=== PATIENT | female | born 2000 | race Caucasian/White ===

== ENCOUNTER 2023-07-31 09:13 | Emergency (ER) | payer OTHER ==
--- OUTSIDE RECORDS SUMMARY | 2023-07-31 09:18 | XMS REPORT | Continuity of Care Document ---
Author Name Unknown Address [address] [facility] [address] [place] [address] [facility] thconnect Address [address] [facility]. [address] [place] [address] Care Team Providers Care Tinsmith Apprentice Name Role Phone Mahnaz Reddy Primary Care Physicia n MAHNAZ DUMONT Attending Clinician Unavail able Mahnaz Reddy Attending Clinician + Doctor Unassigned, [place] Attending Clinician U BRIDGET Batista Attending Clinician Unavailable Placido Alston MD Attending Clinician + [phone] Nixon Castano DO Attending Clinician [phone], [facility] Nst Ultrasound Attending Clinician Unavailable AUGUSTINA MEJIAS Attending Clinician Unavailable Augustina Mejias MD Attending Clinician [phone] OSWALD PURCELL Attending Clinician Unavailable Oswald Purcell MD Attending Clinician [phone] ABBY RUSSELL Attending Clinician UnavailAbby Rey MD Attending Clinician [phone] Richelle CERNA, Chelsey Jamison Attending Clinician Yarely vaMARCIN Recinos Attending Clinician Unavailable MARCIN FULTON Attending Clinician Unavailable Ultrasound, [facility] Attending Clinician Unavaila Marcin Garcia MD Attending Clinician GUALBERTO BAKER Attending Clinician Unav Gualberto Trejo MD Attending Clinician + JESSICA DEMPSEY Attending Clinician Unav ailable Jessica Dempsey MD Attending Clinician + Placido Alston MD Admitting Clinician [phone] AUGUSTINA MEJIAS Admitting Clinician Unavailable Augustina Mejias MD Admitting Clinician [phone] OSWALD PURCELL Admitting Clinician Unavailable Oswald Purcell MD Admitting Clinician [phone] ABBY RUSSELL Admitting Clinician UnavailAbby Rey MD Admitting Clinician [phone] Payers Payer Name Policy Type Policy Number Effective Date Expirati on Date Source [facility] [id number] 2022 00:00:00 Problems Condition Name Condition Details Condition Category Status Onset Date Resolution Date Last Treatment Date Treating Clinician Comments Source Other general counseling and advice for contracept joey management Other general counseling and advice for contracept joey management Disease Active 2022-02 006 00:00: 00 [facility] care and examinatio n of lactating mother care and examinatio n of lactating mother Disease Active 914 00:00: 00 [facility] Anemia, Anemia, Disease Active 10-04 00:00: 00 [facility] (spontaneo us vaginal delivery) (spontaneo us vaginal delivery) Disease Active 8 00:00: 00 [facility] Single live Single live Disease Active 8 00:00: 00 [facility] 37 weeks gestation of 37 weeks gestation of Disease Active 8-24 00:00: 00 [facility] Decreased movement Decreased movement Disease Active 8-24 00:00: 00 [facility] 36 weeks gestation of 36 weeks gestation of Disease Active 8-18 00:00: 00 [facility] UTI (urinary tract infection) UTI (urinary tract infection) Disease Active 8-18 00:00: 00 [facility] Uterine contractio ns Uterine contractio ns Disease Active 818 00:00: 00 [facility] IUGR (intrauter ine growth restrictio n) affecting care of mother IUGR (intrauter ine growth restrictio n) affecting care of mother Disease Active 08-29 00:00: 00 Overview: Formattin g of this note might be different from the original. 2x weekly nst . Discontin ue surveilla nce for FGR as FGR is now resolved 09/19/22, see recent usg report [facility] Low-lying placenta Low-lying placenta Disease Active 6- 00:00: 00 [facility] Atypical squamous cells of undetermin ed significan ce (ASCUS) on Papanicola ou smear of cervix Atypical squamous cells of undetermin ed significan ce (ASCUS) on Papanicola ou smear of cervix Disease Active 4-03 00:00: 00 Overview: Formattin g of this note might be different from the original. Repeat 1 year 04/2023 [facility] Supervisio n of high-risk Supervisio n of high-risk Disease Active 04-30 00:00: 00 [facility] History of placenta previa History of placenta previa Disease Active 04-30 00:00: 00 [facility] history of Anxiety and depression history of Anxiety and depression Disease Active 04-30 00:00: 00 Overview: Formattin g of this note might be different from the original. Last on meds in 2016 Not on meds [facility] Marijuana use Marijuana use Disease Active 04-30 00:00: 00 Overview: Formattin g of this note might be different from the original. Reports quit 1.5 months ago [facility] Multiparit y Multiparit y Disease Active 04-30 00:00: 00 [facility] Allergies, Adverse Reactions, Alerts Allergy Name Allergy Type Status Severity Reaction(s) Onset Date Inactive Date Treating Clinician Comments Source TRAMADOL DRUG INGREDI Active Med N/V 04-30 00:00: 00 [facility] Tramadol Drug Allergy Active Nausea and/or Vomiting 04-30 00:00: 00 [facility] penicill in G DA Active U 06-21 00:00: 00 [facility] OXYTOCIN DRUG INGREDI Active Palpitations 02-09 00:00: 00 [facility] Oxytocin Drug Allergy Active Palpitations 02-09 00:00: 00 [facility] NO KNOWN ALLERGIE S Drug Class Active [facility] Social History Social Habit Start Date Stop Date Quantity Comments Source ASSERTION 2022-01-28 00:00:00 [facility] Gender identity [facility] intake 2022-11-14 00:00:00 2022-11-14 00:00:00 Lifetime non-drinker (finding) [facility] Education 2022-10-02 00:00:00 2022-10-02 00:00:00 21 [facility] Exposure to SARS-CoV-2 (event) 2022-06-15 00:00:00 2022-06-25 11:10:00 Not sure [facility] Tobacco use and exposure 2022-04-30 00:00:00 2022-04-30 00:00:00 Smokeless tobacco non-user [facility] History of Social function 2022-04-30 00:00:00 2022-04-30 00:00:00 [facility] Sex Assigned At 2000 00:00:00 2000 00:00:00 [facility] Smoking Status Start Date Stop Date Source Tobacco smoking consumption unknown [facility] Never smoked tobacco [facility] Medications Ordered Medication Name Filled Medication Name Start Date Stop Date Current Medication? Ordering Clinician Indication Dosage Frequency Signature (SIG) Comments Components Source etonogestre L (NEXPLANON) implant 68 mg 2022-02 16:45: 00 11-14 15:49 :00 No [id number] 68mg Ximena jo [facility] vitamin w/FA tablet 10-04 00:00: 00 Yes [id number] 1{tbl} Take 1 tablet by mouth in the morning. [facility] ferrous sulfate 325 mg (65 mg iron) tablet 10-04 00:00: 00 Yes [id number] 325mg Take 1 tablet by mouth in the morning and 1 tablet in the evening. [facility] docusate 100 mg capsule 10-04 00:00: 00 11-14 00:00 :00 No [id number] 200mg Take 2 capsules by mouth once daily as needed for Constipati on. [facility] ibuprofen 600 mg tablet 10-04 00:00: 00 11-14 00:00 :00 No [id number] 600mg Take 1 tablet by mouth every 6 (six) hours as needed (Pain). Take with food or milk. [facility] rho(D) immune globulin (RHOGAM) syringe 300 mcg 10-03 04:57: 19 Yes 300ug 300 mcg, Intramuscu lar, ONCE, For 1 dose, Conditiona l, Routine [facility] HYDROcodone -acetaminop hen (NORCO 5) 5-325 mg tablet 1 tablet 10-03 04:57: 11 Yes 1{tbl} 1 tablet, Oral, Q6HPRN, Starting on Latisha 10/02/22 at 2357, Until Discontinu ed, Routine, Pain (scale 7-10) [facility] ibuprofen (IBU) tablet 600 mg 10-03 04:57: 11 Yes 600mg 600 mg, Oral, Q6HPRN, Starting on Thu10/02/22 at 2357, Until Discontinu ed, Routine, Pain (scale 4-6) [facility] acetaminoph en (TYLENOL) tablet 650 mg 10-03 04:57: 11 Yes 650mg 650 mg, Oral, Q6HPRN, Starting on Thu10/02/22 at 2356, Until Discontinu ed, Routine, Pain (scale 1-3) [facility] diphenhydrA MINE (BENADRYL) tablet 25 mg 10-03 04:57: 11 Yes 25mg 25 mg, Oral, Q6HPRN, Starting on Thu10/02/22 at 2356, Until Discontinu ed, Routine, Sleep, Itching [facility] ondansetron (ZOFRAN (PF)) injection 4 mg 10-03 04:57: 11 Yes 4mg 4 mg, Slow IV Push, Q8HPRN, Starting on Thu10/02/22 at 2356, Until Discontinu ed, Routine, Nausea and Vomiting (N/V) [facility] simethicone (GAS RELIEF (SIMETHICON E)) chewable tablet 160 mg 10-03 04:57: 11 Yes 160mg 160 mg, Oral, PC+HSPRN, Starting on Thu10/02/22 at 7, Until Discontinu ed, Routine, Gas [facility] docusate (COLACE) capsule 200 mg 10-03 04:57: 11 Yes 200mg 200 mg, Oral, QDAILYPRN, Starting on Thu10/02/22 at 2357, Until Discontinu ed, Routine, Constipati on [facility] magnesium hydroxide (MILK OF MAGNESIA) 400 mg/5 mL suspension 30 mL 10-03 04:57: 11 Yes 30mL 30 mL, Oral, QDAILYPRN, Starting on Thu10/02/22 at 2357, Until Discontinu ed, Routine, Constipati on [facility] benzocaine- menthol (DERMOPLAST ) 20-0.5 % topical spray 10-03 04:57: 11 Yes Topical, PRN, Starting on Thu10/02/22 at 2357, Until Discontinu ed, Routine, Perineum discomfort [facility] ropivacaine 0.2 % (NAROPIN (PF)) epidural infusion 10-03 01:15: 00 Yes Epidural, CONTINUOUS PRN, Starting on Latisha 10/02/22 at 2014, Until Discontinu ed, Routine, Intra-op [facility] lidocaine-e pinephrine (XYLOCAINE W/EPINEPHRI NE) 1.5 %-1:200,000 injection 10-03 01:15: 00 Yes Intraderma l, ONCE INTRA PROCEDURE, Starting on Latisha 10/02/22 at 2014, Until Discontinu ed, Routine, Intra-op [facility] oxytocin (PITOCIN) 30 units in NS 500 mL IV infusion 10-02 19:05: 02 10-03 04:57 :17 No 2mU/min at 2-40 mL/hr, IV Infusion, TITRATE, Starting on Latisha 10/02/22 at 1405, Until Latisha 10/02/22 at 2357, WILLIAM [facility] D5W-LR IV infusion 1,000 mL 10-02 17:11: 01 10-03 04:57 :17 No 1000mL at 1-125 mL/hr, IV Infusion, TITRATE, Starting on Latisha 10/02/22 at 1211, Until Latisha 10/02/22 at 2357, Routine [facility] metroNIDAZO LE (FLAGYL) 500 mg tablet 10-02 00:00: 00 Yes [id number] 500mg Take 1 tablet by mouth every 12 (twelve) hours. [facility] lactated ringers IV infusion 500 mL 09-27 18:30: 00 09-27 18:03 :30 No 500mL at 999 mL/hr, 500 mL, Intravenou s, ONCE, 1 dose, On 09/27/22 at 1330, Routine [facility] fluconazole (DIFLUCAN) tablet 150 mg 09-26 03:45: 00 09-26 03:08 :00 No 150mg 150 mg, Oral, ONCE, 1 dose, On Latisha 09/25/22 at 2245, WILLIAM
Re ason for Anti-Infec tive: Documented Infection< br>Documen king Infection Site: Pelvic
Duration of Therapy: Other (see Comments) [facility] lactated ringers IV infusion 500 mL 09-26 02:00: 00 09-26 03:09 :00 No 500mL at 999 mL/hr, 500 mL, Intravenou s, ONCE, 1 dose, On Latisha 09/25/22 at 2100, Routine [facility] ferrous sulfate 325 mg (65 mg iron) tablet 09-25 00:00: 00 10-04 00:00 :00 No [id number] 325mg Take 1 tablet by mouth in the morning and 1 tablet in the evening. [facility] ascorbic acid, vitamin C, 500 mg tablet 09-25 00:00: 00 10-04 00:00 :00 No [id number] 500mg Take 1 tablet by mouth in the morning and 1 tablet at noon and 1 tablet in the evening. [facility] Nitrofurant oin&Nit. Macrocryst 100 mg capsule 09-25 00:00: 00 10-04 00:00 :00 No [id number] 100mg Take 1 capsule by mouth in the morning and 1 capsule in the evening. Do all this for 7 days. [facility] multivitami n ( VITAMIN) tablet 04-30 00:00: 00 Yes [id number] 1{tbl} Take 1 tablet by mouth in the morning. [facility] multivitami n ( VITAMIN) tablet 04-30 00:00: 00 10-04 00:00 :00 No [id number] 1{tbl} Take 1 tablet by mouth in the morning. [facility] Immunizations Ordered Immunization Name Filled Immunization Name Date Status Comments Source TDAP 2022-07-31 00:00:00 Completed [facility] TDAP 2022-07-31 00:00:00 Completed [facility] TDAP 2022-07-31 00:00:00 Completed [facility] TDAP 2022-07-31 00:00:00 Completed [facility] TDAP 2022-07-31 00:00:00 Completed [facility] TDAP 2022-07-31 00:00:00 Completed [facility] TDAP 2022-07-31 00:00:00 Completed [facility] TDAP 2022-07-31 00:00:00 Completed [facility] TDAP 2022-07-31 00:00:00 Completed [facility] TDAP 2022-07-31 00:00:00 Completed [facility] TDAP 2022-07-31 00:00:00 Completed [facility] TDAP 2022-07-31 00:00:00 Completed [facility] TDAP 2022-07-31 00:00:00 Completed [facility] TDAP 2022-07-31 00:00:00 Completed [facility] TDAP 2022-07-31 00:00:00 Completed [facility] TDAP 2022-07-31 00:00:00 Completed [facility] TDAP 2022-07-31 00:00:00 Completed [facility] TDAP 2022-07-31 00:00:00 Completed [facility] TDAP 2022-07-31 00:00:00 Completed [facility] TDAP 2022-07-31 00:00:00 Completed [facility] TDAP 2022-07-31 00:00:00 Completed [facility] TDAP 2022-07-31 00:00:00 Completed [facility] TDAP 2022-07-31 00:00:00 Completed [facility] TDAP 2022-07-31 00:00:00 Completed [facility] TDAP 2022-07-31 00:00:00 Completed [facility] TDAP 2022-07-31 00:00:00 Completed [facility] TDAP 2022-07-31 00:00:00 Completed [facility] TDAP 2022-07-31 00:00:00 Completed [facility] TDAP 2022-07-31 00:00:00 Completed [facility] TDAP 2022-07-31 00:00:00 Completed [facility] TDAP 2022-07-31 00:00:00 Completed [facility] TDAP 2022-07-31 00:00:00 Completed [facility] TDAP 2022-07-31 00:00:00 Completed [facility] TDAP 2022-07-31 00:00:00 Completed [facility] TDAP 2022-07-31 00:00:00 Completed [facility] TDAP 2022-07-31 00:00:00 Completed [facility] TDAP Unknown Completed [facility] TDAP Unknown Completed [facility] TDAP Unknown Completed [facility] TDAP Unknown Completed [facility] Vital Signs Vital Name Observation Time Observation Value Comments S ource Systolic blood pressure 2022-11-14 15:22:00 117 mm[Hg] [facility] Diastolic blood pressure 2022-11-14 15:22:00 70 mm[Hg] [facility] Heart rate 2022-11-14 15:22:00 90 /min [facility] Body temperature 2022-11-14 15:22:00 36 Sarita [facility] Respiratory rate 2022-11-14 15:22:00 18 /min [facility] Body height 2022-11-14 15:22:00 165.1 cm [facility] Body weight 2022-11-14 15:22:00 70.58 kg [facility] BMI 2022-11-14 15:22:00 25.89 kg/m2 [facility] Systolic blood pressure 2022-10-23 20:53:00 94 mm[Hg] [facility] Diastolic blood pressure 2022-10-23 20:53:00 76 mm[Hg] [facility] Heart rate 2022-10-23 20:53:00 86 /min [facility] Body temperature 2022-10-23 20:53:00 36.78 Sarita [facility] Respiratory rate 2022-10-23 20:53:00 18 /min [facility] Body weight 2022-10-23 20:53:00 69.899 kg [facility] BMI 2022-10-23 20:53:00 25.64 kg/m2 [facility] Systolic blood pressure 2022-10-04 13:13:00 120 mm[Hg] [facility] Diastolic blood pressure 2022-10-04 13:13:00 76 mm[Hg] [facility] Heart rate 2022-10-04 13:13:00 83 /min [facility] Body temperature 2022-10-04 13:13:00 36.5 Sarita [facility] Respiratory rate 2022-10-04 13:13:00 18 /min [facility] Oxygen saturation in Arterial blood by Pulse oximetry 2022-10-04 13:13:00 97 /min [facility] Body height 2022-10-02 16:15:00 165.1 cm [facility] Body weight 2022-10-02 16:15:00 74.39 kg [facility] BMI 2022-10-02 16:15:00 27.29 kg/m2 [facility] Systolic blood pressure 2022-10-02 12:58:00 111 mm[Hg] [facility] Diastolic blood pressure 2022-10-02 12:58:00 76 mm[Hg] [facility] Heart rate 2022-10-02 12:58:00 97 /min [facility] Body temperature 2022-10-02 12:58:00 36.61 Sarita [facility] Respiratory rate 2022-10-02 12:58:00 17 /min [facility] Body height 2022-10-02 12:58:00 165.1 cm [facility] Body weight 2022-10-02 12:58:00 74.571 kg [facility] BMI 2022-10-02 12:58:00 27.36 kg/m2 [facility] Systolic blood pressure 2022-10-02 03:30:00 115 mm[Hg] [facility] Diastolic blood pressure 2022-10-02 03:30:00 70 mm[Hg] [facility] Heart rate 2022-10-02 03:30:00 93 /min [facility] Oxygen saturation in Arterial blood by Pulse oximetry 2022-10-02 03:30:00 99 /min [facility] Body temperature 2022-10-02 01:00:00 36.78 Sarita [facility] Body weight 2022-10-02 01:00:00 75.206 kg [facility] BMI 2022-10-02 01:00:00 27.59 kg/m2 [facility] Systolic blood pressure 2022-09-27 19:40:00 114 mm[Hg] [facility] Diastolic blood pressure 2022-09-27 19:40:00 69 mm[Hg] [facility] Heart rate 2022-09-27 19:40:00 94 /min [facility] Oxygen saturation in Arterial blood by Pulse oximetry 2022-09-27 19:40:00 99 /min [facility] Systolic blood pressure 2022-09-26 14:40:00 101 mm[Hg] [facility] Diastolic blood pressure 2022-09-26 14:40:00 65 mm[Hg] [facility] Heart rate 2022-09-26 14:40:00 93 /min [facility] Body temperature 2022-09-26 14:40:00 36.5 Sarita [facility] Respiratory rate 2022-09-26 14:40:00 20 /min [facility] Body height 2022-09-26 14:40:00 165.1 cm [facility] Body weight 2022-09-26 14:40:00 75.206 kg [facility] BMI 2022-09-26 14:40:00 27.59 kg/m2 [facility] Heart rate 2022-09-26 02:57:00 87 /min [facility] Oxygen saturation in Arterial blood by Pulse oximetry 2022-09-26 02:57:00 99 /min [facility] Systolic blood pressure 2022-09-26 02:30:00 115 mm[Hg] [facility] Diastolic blood pressure 2022-09-26 02:30:00 62 mm[Hg] [facility] Respiratory rate 2022-09-26 02:00:00 16 /min [facility] Body temperature 2022-09-25 23:59:00 36.67 Sarita [facility] Systolic blood pressure 2022-09-23 15:29:00 113 mm[Hg] [facility] Diastolic blood pressure 2022-09-23 15:29:00 68 mm[Hg] [facility] Heart rate 2022-09-23 15:29:00 93 /min [facility] Body temperature 2022-09-23 15:29:00 36.78 Sarita [facility] Respiratory rate 2022-09-23 15:29:00 16 /min [facility] Body height 2022-09-23 15:29:00 165.1 cm [facility] Body weight 2022-09-23 15:29:00 74.798 kg [facility] BMI 2022-09-23 15:29:00 27.44 kg/m2 [facility] Systolic blood pressure 2022-09-19 13:33:00 111 mm[Hg] [facility] Diastolic blood pressure 2022-09-19 13:33:00 68 mm[Hg] [facility] Heart rate 2022-09-19 13:33:00 101 /min [facility] Body temperature 2022-09-19 13:33:00 35.56 Sarita [facility] Respiratory rate 2022-09-19 13:33:00 18 /min [facility] Body height 2022-09-19 13:33:00 165.1 cm [facility] Body weight 2022-09-19 13:33:00 74.435 kg [facility] BMI 2022-09-19 13:33:00 27.31 kg/m2 [facility] Systolic blood pressure 2022-09-12 18:53:00 109 mm[Hg] [facility] Diastolic blood pressure 2022-09-12 18:53:00 67 mm[Hg] [facility] Heart rate 2022-09-12 18:53:00 96 /min [facility] Body temperature 2022-09-12 18:53:00 36.28 Sarita [facility] Respiratory rate 2022-09-12 18:53:00 18 /min [facility] Body height 2022-09-12 18:53:00 165.1 cm [facility] Body weight 2022-09-12 18:53:00 73.392 kg [facility] BMI 2022-09-12 18:53:00 26.92 kg/m2 [facility] Systolic blood pressure 2022-09-09 14:13:00 101 mm[Hg] [facility] Diastolic blood pressure 2022-09-09 14:13:00 64 mm[Hg] [facility] Heart rate 2022-09-09 14:13:00 89 /min [facility] Body temperature 2022-09-09 14:13:00 36.17 Sarita [facility] Respiratory rate 2022-09-09 14:13:00 18 /min [facility] Body height 2022-09-09 14:13:00 165.1 cm [facility] Body weight 2022-09-09 14:13:00 73.12 kg [facility] BMI 2022-09-09 14:13:00 26.83 kg/m2 [facility] Systolic blood pressure 2022-09-05 18:52:00 111 mm[Hg] [facility] Diastolic blood pressure 2022-09-05 18:52:00 72 mm[Hg] [facility] Heart rate 2022-09-05 18:52:00 95 /min [facility] Body temperature 2022-09-05 18:52:00 36.17 Sarita [facility] Respiratory rate 2022-09-05 18:52:00 18 /min [facility] Body height 2022-09-05 18:52:00 165.1 cm [facility] Body weight 2022-09-05 18:52:00 73.437 kg [facility] BMI 2022-09-05 18:52:00 26.94 kg/m2 [facility] Systolic blood pressure 2022-09-02 13:59:00 110 mm[Hg] [facility] Diastolic blood pressure 2022-09-02 13:59:00 65 mm[Hg] [place] [facility] Heart rate 2022-09-02 13:59:00 93 /min [facility] Body temperature 2022-09-02 13:59:00 35.72 Sarita [facility] Respiratory rate 2022-09-02 13:59:00 18 /min [facility] Body height 2022-09-02 13:59:00 165.1 cm [facility] Body weight 2022-09-02 13:59:00 72.303 kg [facility] BMI 2022-09-02 13:59:00 26.53 kg/m2 [facility] Systolic blood pressure 2022-08-29 17:58:00 106 mm[Hg] [place] [facility] Diastolic blood pressure 2022-08-29 17:58:00 64 mm[Hg] [facility] Heart rate 2022-08-29 17:58:00 95 /min [facility] Body temperature 2022-08-29 17:58:00 36.61 Sarita [facility] Respiratory rate 2022-08-29 17:58:00 18 /min [facility] Body height 2022-08-29 17:58:00 165.1 cm [facility] Body weight 2022-08-29 17:58:00 71.725 kg [facility] BMI 2022-08-29 17:58:00 26.31 kg/m2 [facility] Systolic blood pressure 2022-08-14 15:55:00 99 mm[Hg] [place] [facility] Diastolic blood pressure 2022-08-14 15:55:00 65 mm[Hg] [facility] Heart rate 2022-08-14 15:55:00 91 /min [facility] Body temperature 2022-08-14 15:55:00 36.11 Sarita [facility] Respiratory rate 2022-08-14 15:55:00 18 /min [facility] Body height 2022-08-14 15:55:00 165.1 cm [facility] Body weight 2022-08-14 15:55:00 69.264 kg [facility] BMI 2022-08-14 15:55:00 25.41 kg/m2 [facility] Systolic blood pressure 2022-07-31 14:40:00 110 mm[Hg] [facility] Diastolic blood pressure 2022-07-31 14:40:00 66 mm[Hg] [facility] Heart rate 2022-07-31 14:40:00 100 /min [facility] Body temperature 2022-07-31 14:40:00 36.22 Sarita [facility] Respiratory rate 2022-07-31 14:40:00 18 /min [facility] Body height 2022-07-31 14:40:00 165.1 cm [facility] Body weight 2022-07-31 14:40:00 67.949 kg [facility] BMI 2022-07-31 14:40:00 24.93 kg/m2 [facility] Systolic blood pressure 2022-07-16 14:08:00 106 mm[Hg] [facility] Diastolic blood pressure 2022-07-16 14:08:00 66 mm[Hg] [facility] Heart rate 2022-07-16 14:08:00 94 /min [facility] Body temperature 2022-07-16 14:08:00 35.56 Sarita [facility] Respiratory rate 2022-07-16 14:08:00 18 /min [facility] Body height 2022-07-16 14:08:00 165.1 cm [facility] Body weight 2022-07-16 14:08:00 64.728 kg [facility] BMI 2022-07-16 14:08:00 23.75 kg/m2 [facility] Systolic blood pressure 2022-06-25 16:11:00 98 mm[Hg] [facility] Diastolic blood pressure 2022-06-25 16:11:00 59 mm[Hg] [facility] Heart rate 2022-06-25 16:11:00 89 /min [facility] Body temperature 2022-06-25 16:11:00 36.06 Sarita [facility] Respiratory rate 2022-06-25 16:11:00 18 /min [facility] Body height 2022-06-25 16:11:00 165.1 cm [facility] Body weight 2022-06-25 16:11:00 61.735 kg [facility] BMI 2022-06-25 16:11:00 22.65 kg/m2 [facility] BMI 2022-05-28 15:24:00 20.82 kg/m2 [facility] Systolic blood pressure 2022-05-28 15:24:00 102 mm[Hg] [facility] Diastolic blood pressure 2022-05-28 15:24:00 57 mm[Hg] [facility] Heart rate 2022-05-28 15:24:00 84 /min [facility] Body temperature 2022-05-28 15:24:00 36.11 Sarita [facility] Respiratory rate 2022-05-28 15:24:00 18 /min [facility] Body height 2022-05-28 15:24:00 165.1 cm [facility] Body weight 2022-05-28 15:24:00 56.745 kg [facility] Systolic blood pressure 2022-04-30 14:03:00 131 mm[Hg] [facility] Diastolic blood pressure 2022-04-30 14:03:00 73 mm[Hg] [facility] Heart rate 2022-04-30 14:03:00 96 /min [facility] Body temperature 2022-04-30 14:03:00 36.39 Sarita [facility] Respiratory rate 2022-04-30 14:03:00 18 /min [facility] Body height 2022-04-30 14:03:00 165.1 cm [facility] Body weight 2022-04-30 14:03:00 52.164 kg [facility] BMI 2022-04-30 14:03:00 19.14 kg/m2 [facility] Procedures Procedure Date / Time Performed Performing Clinician Source CONSENT FOR CONTRACEPTION 2022-11-14 05:01:00 Doctor Unassigned, [place] [facility] CBC WITH DIFF 2022-10-03 09:53:00 Eric Paige [facility] VENOUS CORD GAS 2022-10-03 03:49:00 Enid Puri [facility] CENTRAL NEURAXIAL BLOCK 2022-10-03 02:13:00 Wilian Castano [facility] CBC WITH DIFF 2022-10-02 18:58:[address] [facility] HEPATITIS B SURFACE ANTIGEN 2022-10-02 18:58:00 Rajinder Schumacher [facility] HIV 1/2 AG-AB WITH REFLEX 2022-10-02 18:58:00 Rajinder Schumacher [facility] SYPHILIS IGG/IGM 2022-10-02 18:58:00 Rajinder Schumacher [facility] HEPATITIS B SURFACE ANTIGEN 2022-10-02 17:45:00 Enid Puri [facility] HB ABO GROUPING 2022-10-02 17:45:00 Enid Puri [facility] RHO (D) IMMUNE GLOBULIN 2022-10-02 17:45:00 Salty Arellano [facility] EXTRA TUBE SST 2022-10-02 17:45:00 Placido Alston [facility] HIV 1/2 AG-AB WITH REFLEX 2022-10-02 17:45:00 Endi Puri [facility] SYPHILIS IGG/IGM 2022-10-02 17:45:00 Feroz Puri [facility] HOSPITAL ADMISSION 2022-10-02 05:01:00 Doctor Un assigned, [place] [facility] URINALYSIS 2022-10-02 01:25:00 Augustina Mejias [facility] ADC CLC OR LCC ONLY - WET PREP 2022-10-02 01:25:00 Augustina Mejias [facility] NON-STRESS TEST 2022-09-26 17:52:48 Bruce Dumont [facility] URINALYSIS 2022-09-26 00:53:00 Guy Lee [facility] POCT URINALYSIS 2022-09-26 00:00:00 Mahnaz Dumont [facility] NON-STRESS TEST 2022-09-23 18:03:50 Bruce Dumont [facility] POCT URINALYSIS 2022-09-23 00:00:00 Mahnaz Dumont [facility] NON-STRESS TEST 2022-09-19 14:22:27 Bruce Dumont [facility] POCT URINALYSIS 2022-09-19 14:00:00 Mahnaz Dumont [facility] SECOND AND THIRD TRIMESTER ULTRASOUND 2022-09-19 13:18:00 Mahnaz Dumont [facility] NON-STRESS TEST 2022-09-12 19:46:08 Bruce Dumont [facility] POCT URINALYSIS 2022-09-12 18:55:00 Mahnaz Dumont [facility] SECOND AND THIRD TRIMESTER ULTRASOUND 2022-09-11 16:58:00 Mahnaz Dumont [facility] NON-STRESS TEST 2022-09-09 16:40:19 Bruce Dumont [facility] POCT URINALYSIS 2022-09-09 14:15:00 Mahnaz Dumont [facility] NON-STRESS TEST 2022-09-05 20:13:49 Bruce Dumont [facility] POCT URINALYSIS 2022-09-05 18:53:00 Mahnaz Dumont [facility] SECOND AND THIRD TRIMESTER ULTRASOUND 2022-09-04 13:30:00 Mahnaz Dumont [facility] NON-STRESS TEST 2022-09-02 14:50:26 Bruce Dumont [facility] POCT URINALYSIS 2022-09-02 14:00:00 Mahnaz Dumont [facility] NON-STRESS TEST 2022-08-29 18:46:13 Bruce Dumont [facility] POCT URINALYSIS 2022-08-29 18:00:00 Mahnaz Dumont [facility] SECOND AND THIRD TRIMESTER ULTRASOUND 2022-08-29 16:24:00 Mahnaz Dumont [facility] POCT URINALYSIS 2022-08-14 15:57:00 Mahnaz Dumont [facility] DISABILITY/FMLA 2022-08-01 05:01:00 Doctor Unass igned, [place] [facility] TDAP VACCINE, >11 YRS, IM 2022-07-31 14:53:09 Mahnaz Dumont [facility] POCT URINALYSIS 2022-07-31 14:43:00 Mahnaz Dumont [facility] POCT URINALYSIS 2022-07-16 14:11:00 Mahnaz Dumont [facility] STERILIZATION CONSENT FORM 2022-07-16 05:01:00 Doctor Unassigned, [place] [facility] POCT URINALYSIS 2022-06-25 16:14:00 Mahnaz Dumont [facility] POCT URINALYSIS 2022-05-28 15:26:00 Mahnaz Dumont [facility] EXTERNAL PROVIDER RECORDS 2022-05-08 05:01:00 Doctor Unassigned, [place] [facility] CBC WITH DIFF 2022-04-30 15:20:00 Mahnaz Dumont [facility] HEPATITIS B SURFACE ANTIGEN 2022-04-30 15:20:00 Mahnaz Dumont [facility] HB INDIRECT ANTIGLOBULIN TEST 2022-04-30 15:20:00 Mahnaz Dumont [facility] HIV 1/2 AG-AB WITH REFLEX 2022-04-30 15:20:00 Mahnaz Dumont [facility] PAP SMEAR-LIQUID BASED-CP 2022-04-30 15:20:00 Mahnaz Dumont [facility] SYPHILIS IGG/IGM 2022-04-30 15:20:00 Donna Dumont [facility] POCT URINALYSIS W/O SPECIFIC GRAVITY 2022-04-30 13:58:00 Mahnaz Dumont [facility] POCT TEST 2022-04-30 13:57:00 Jarod Dumont [facility] ASSIGNMENT OF BENEFITS 2022-04-30 13:41:39 Docto r Unassigned, [place] [facility] Encounters Start Date/Time End Date/Time Encounter Type Admission Type Attending [facility] Care Department Encounter ID Source 2022-11-28 10:15:00 2022-11-28 10:15:00 Outpatient R MAHNAZ DUMONT [facility] [id number] [facility] 2022-11-14 10:00:00 2022-11-14 10:47:57 Outpatient R MAHNAZ DUMONT [facility] [id number] [facility] 2022-11-14 10:00:00 2022-11-14 10:47:57 Office Visit Mahnaz Dumont [facility] REGISTERED TRAVEL NURSE [facility] MATERNAL & CHILD HEALTH [facility] 1.840.114 350.1.13.10 4.2.7.2.686 [id number] [facility] 2022-11-14 00:00:00 2022-11-14 00:00:00 Orders Only Doctor Unassigned, [place] [facility] 1..840.114 350.1.13.10 4.2.7.2.686 [id number] [facility] 2022-10-23 16:00:00 2022-10-23 16:02:06 Outpatient R MAHNAZ DUMONT [facility] [id number] [facility] 2022-10-23 16:00:00 2022-10-23 16:02:06 Routine Visit Mahnaz Dumont [facility] REGISTERED TRAVEL NURSE [facility] MATERNAL & CHILD [facility] 1..840.114 350.1.13.10 4.2.7.2.686 [id number] [facility] 2022-10-02 10:41:00 2022-10-04 14:26:00 Hospital Encounter Placido Alston [facility] 1.2.840.114 350.1.13.10 4.2.7.2.686 [id number] [facility] 2022-10-03 10:15:00 2022-10-03 10:15:00 Outpatient P [facility] [id number] [facility] 2022-10-02 20:00:00 2022-10-02 20:00:00 Anesthesia Event Nixon Castano [facility] 1.840.114 350.1.13.10 4.2.7.2.686 [id number] [facility] 2022-10-02 08:00:00 2022-10-02 08:15:00 Routine Visit 1, Ang-Rmchp Nst Ultrasound [facility] REGISTERED TRAVEL NURSE [facility] MATERNAL & CHILD HEALTH [facility] 1.840.114 350.1.13.10 4.2.7.2.686 [id number] [facility] 2022-10-02 07:45:00 2022-10-02 08:06:18 Outpatient R MAHNAZ DUMONT [facility] [id number] [facility] 2022-10-02 07:45:00 2022-10-02 08:06:18 Routine Visit Mahnaz Dumont [facility] REGISTERED TRAVEL NURSE [facility] MATERNAL & CHILD [facility] 1.2840.114 350.1.13.10 4.2.7.2.686 [id number] 107 [id number] [facility] 2022-10-02 00:00:00 2022-10-02 00:00:00 Orders Only Doctor Unassigned, [place] [facility] 1.2840.114 350.1.13.10 4.2.7.2.686 [id number] [facility] 2022-10-01 19:47:00 2022-10-01 23:01:00 Outpatient X AUGUSTINA MEJIAS [facility] [id number] [facility] 2022-10-01 19:47:00 2022-10-01 23:01:00 Outpatient X AUGUSTINA MEJIAS [facility] [id number] [facility] 2022-10-01 19:47:00 2022-10-01 23:01:00 Emergency Augustina Mejias [facility] 1.2.840.114 350.1.13.10 4.2.7.2.686 [id number] [facility] 2022-09-27 12:06:00 2022-09-27 14:56:00 Outpatient P JAZZY OSWALD [facility] [id number] [facility] 2022-09-27 12:06:00 2022-09-27 14:56:00 Hospital Encounter Oswald Purcell [facility] 1.2.840.114 350.1.13.10 4.2.7.2.686 [id number] [facility] 2022-09-26 09:15:00 2022-09-26 10:08:56 Outpatient R MAHNAZ DUMONT [facility] [id number] [facility] 2022-09-26 09:15:00 2022-09-26 10:08:56 Routine Visit Mahnaz Dumont [facility] REGISTERED TRAVEL NURSE [facility] MATERNAL & CHILD HEALTH [facility] 1.2.840.114 350.1.13.10 4.2.7.2.686 [id number] [facility] 2022-09-26 09:15:00 2022-09-26 09:15:00 Outpatient R MAHNAZ DUMONT [facility] [id number] [facility] 2022-09-26 00:00:00 2022-09-26 00:00:00 Telephone Mahnaz Dumont [facility] REGISTERED TRAVEL NURSE [facility] CHILD [facility] 1.2.840.114 350.1.13.10 4.2.7.2.686 [id number] [facility] 2022-09-25 18:35:00 2022-09-25 22:13:00 Outpatient P ABBY RUSSELL [facility] [id number] [facility] 2022-09-25 18:35:00 2022-09-25 22:13:00 Hospital Encounter Abby Russell [facility] 1.2.840.114 350.1.13.10 4.2.7.2.686 [id number] [facility] 2022-09-25 00:00:00 2022-09-25 00:00:00 Telephone Mahnaz Dumont [facility] REGISTERED TRAVEL NURSE [facility] 1.2.840.114 350.1.13.10 4.2.7.2.686 [id number] 107 [id number] [facility] 2022-09-25 00:00:00 2022-09-25 00:00:00 Abstract Mahnaz Dumont [facility] REGISTERED TRAVEL NURSE [facility] 1.2.840.114 350.1.13.10 4.2.7.2.686 [id number] [facility] 2022-09-25 00:00:00 2022-09-25 00:00:00 Nurse Triage Chelsey Kelsey [facility] 1.2.840.114 350.1.13.10 4.2.7.2.686 [id number] [facility] 2022-09-23 10:15:00 2022-09-23 11:25:31 Routine Visit Mahnaz Dumont [facility] REGISTERED TRAVEL NURSE [facility] & CHILD [facility] 1.2.840.114 350.1.13.10 4.2.7.2.686 [id number] [facility] 2022-09-19 08:45:00 2022-09-19 09:00:00 Routine Visit JuliaMahnaz Madalyn [facility] REGISTERED TRAVEL NURSE [facility] & CHILD [facility] 1.2.840.114 350.1.13.10 4.2.7.2.686 [id number] [facility] 2022-09-19 08:00:00 2022-09-19 08:21:57 [facility] [id number] [facility] 2022-09-19 08:00:00 2022-09-19 08:21:57 Furniture Finisher Apprentice Visit Ultrasound, AndrzejMarcin Figueroa [facility] REGISTERED TRAVEL NURSE [facility] & CHILD [facility] 1.840.114 350.1.13.10 4.2.7.2.686 [id number] [facility] 2022-09-16 08:45:00 2022-09-16 09:30:31 Outpatient R MAHNAZ DUMONT [facility] [id number] [facility] 2022-09-12 14:00:00 2022-09-12 14:45:11 Outpatient R JULIA MAHNAZ [facility] [id number] [facility] 2022-09-12 14:00:00 2022-09-12 14:45:11 Routine Visit Fausto Dumontilola Madalyn [facility] REGISTERED TRAVEL NURSE [facility] & CHILD [facility] 1.2840.114 350.1.13.10 4.2.7.2.686 [id number] [facility] 2022-09-12 00:00:00 2022-09-12 00:00:00 Abstract Julia Mahnaz Madalyn [facility] REGISTERED TRAVEL NURSE [facility] & CHILD [facility] 1.2.840.114 350.1.13.10 4.2.7.2.686 [id number] [facility] 2022-09-11 11:30:00 2022-09-11 11:55:43 Outpatient P GUALBERTO CHAUDHRY [facility] [id number] [facility] 2022-09-11 11:30:00 2022-09-11 11:55:43 Furniture Finisher Apprentice Visit Ultrasound, [facility] Gualberto Chaudhry [facility] REGISTERED TRAVEL NURSE [facility] & CHILD [facility] 1.840.114 350.1.13.10 4.2.7.2.686 [id number] [facility] 2022-09-11 00:00:00 2022-09-11 00:00:00 Abstract Mahnaz Dumont [facility] REGISTERED TRAVEL NURSE [facility] & CHILD [facility] .840.114 350.1.13.10 4.2.7.2.686 [id number] 107 [id number] [facility] 2022-09-09 09:45:00 2022-09-09 10:25:55 Outpatient R MAHNAZ DUMONT [facility] [id number] [facility] 2022-09-09 09:45:00 2022-09-09 10:25:55 Routine Visit Mahnaz Dumont [facility] REGISTERED TRAVEL NURSE [facility] & CHILD [facility] .840.114 350.1.13.10 4.2.7.2.686 [id number] [facility] 2022-09-05 14:15:00 2022-09-05 15:03:59 Outpatient R MAHNAZ DUMONT [facility] [id number] [facility] 2022-09-05 14:15:00 2022-09-05 15:03:59 Routine Visit Mahnaz Dumont [facility] REGISTERED TRAVEL NURSE [facility] & CHILD [facility] .840.114 350.1.13.10 4.2.7.2.686 [id number] [facility] 2022-09-05 00:00:00 2022-09-05 00:00:00 Abstract Mahnaz Dumont [facility] REGISTERED TRAVEL NURSE [facility] & CHILD [facility] 1.2.840.114 350.1.13.10 4.2.7.2.686 [id number] [facility] 2022-09-04 08:30:00 2022-09-04 08:32:30 Outpatient P DONYAAARON NIXValeria [facility] [id number] [facility] 2022-09-04 08:30:00 2022-09-04 08:32:30 Furniture Finisher Apprentice Visit Ultrasound, Krystina ArnoldJessica nix Raeuvcynthia [facility] REGISTERED TRAVEL NURSE [facility]ERNAL & CHILD [facility] 1..840.114 350.1.13.10 4.2.7.2.686 [id number] [facility] 2022-09-02 09:45:00 2022-09-02 09:45:00 Routine Visit Mahnaz Dumont [facility] REGISTERED TRAVEL NURSE [facility] & CHILD [facility] 1..840.114 350.1.13.10 4.2.7.2.686 [id number] [facility] 2022-09-02 09:45:00 2022-09-02 09:36:55 Outpatient R MAHNAZ DUMONT [facility] [id number] [facility] 2022-09-01 00:00:00 2022-09-01 00:00:00 Abstract Mahnaz Dumont [facility] REGISTERED TRAVEL NURSE [facility] & CHILD [facility] 1..840.114 350.1.13.10 4.2.7.2.686 [id number] [facility] 2022-09-01 00:00:00 2022-09-01 00:00:00 Telephone Mahnaz Duomnt [facility] REGISTERED TRAVEL NURSE [facility] MATERNAL & CHILD [facility] 1.840.114 350.1.13.10 4.2.7.2.686 [id number] [facility] 2022-08-29 13:00:00 2022-08-29 13:47:33 Routine Visit NorbertosohammarielosMahnaz Madalyn [facility] REGISTERED TRAVEL NURSE [facility] & CHILD [facility] 1.840.114 350.1.13.10 4.2.7.2.686 [id number] [facility] 2022-08-29 11:00:00 2022-08-29 11:35:29 Outpatient P JESSICA DEMPSEY [facility] [id number] [facility] 2022-08-29 11:00:00 2022-08-29 11:35:29 Furniture Finisher Apprentice Visit Ultrasound, Jessica Ramos [facility] REGISTERED TRAVEL NURSE [facility] & CHILD [facility] 1.0.114 350.1.13.10 4.2.7.2.686 [id number] [facility] 2022-08-14 11:00:00 2022-08-14 11:09:10 Outpatient R MAHNAZ DUMONT [facility] [id number] [facility] 2022-08-14 11:00:00 2022-08-14 11:09:10 Routine Visit SharitamarielosMahnaz Madalyn [facility] REGISTERED TRAVEL NURSE [facility] & CHILD [facility] 1.840.114 350.1.13.10 4.2.7.2.686 [id number] 107 [id number] [facility] 2022-08-01 00:00:00 2022-08-01 00:00:00 Orders Only Doctor Unassigned, [place] [facility] 1.840.114 350.1.13.10 4.2.7.2.686 [id number] [facility] 2022-07-31 11:30:00 2022-07-31 11:30:00 Outpatient P [facility] [id number] [facility] 2022-07-31 09:45:00 2022-07-31 10:04:21 Outpatient R MAHNAZ DUMONT [facility] [id number] [facility] 2022-07-31 09:45:00 2022-07-31 10:04:21 Routine Visit NorbertosohammarielosMahnaz Madalyn [facility] REGISTERED TRAVEL NURSE [facility] & CHILD [facility] 1.2.840.114 350.1.13.10 4.2.7.2.686 [id number] [facility] 2022-07-30 00:00:00 2022-07-30 00:00:00 Abstract Mahnaz Dumont [facility] REGISTERED TRAVEL NURSE [facility] & CHILD [facility] 1.2.840.114 350.1.13.10 4.2.7.2.686 [id number] [facility] 2022-07-30 00:00:00 2022-07-30 00:00:00 Abstract Mahnaz Dumotn [facility] REGISTERED TRAVEL NURSE [facility] CHILD [facility] 1.2.840.114 350.1.13.10 4.2.7.2.686 [id number] [facility] 2022-07-30 00:00:00 2022-07-30 00:00:00 Telephone Mahnaz Dumont [facility] REGISTERED TRAVEL NURSE [facility] MATERNAL & CHILD [facility] 1.2.840.114 350.1.13.10 4.2.7.2.686 [id number] [facility] 2022-07-29 11:30:00 2022-07-29 12:00:00 Furniture Finisher Apprentice Visit Ultrasound, Gualberto Null [facility] REGISTERED TRAVEL NURSE [facility] MATERNAL & CHILD [facility] 1.2.840.114 350.1.13.10 4.2.7.2.686 [id number] [facility] 2022-07-29 11:30:00 2022-07-29 11:30:00 Outpatient P JOSH LOERA [facility] [id number] [facility] 2022-07-16 08:45:00 2022-07-16 09:31:17 Outpatient R MAHNAZ [facility] [id number] [facility] 2022-07-16 08:45:00 2022-07-16 09:31:17 Routine Visit Mahnaz Dumont [facility] REGISTERED TRAVEL NURSE [facility] MATERNAL & CHILD [facility] 1.2.840.114 350.1.13.10 4.2.7.2.686 [id number] [facility] 2022-07-16 09:00:00 2022-07-16 09:00:00 Outpatient R MAHNAZ [facility] [id number] [facility] 2022-07-16 00:00:00 2022-07-16 00:00:00 Orders Only Doctor Unassigned, [place] [facility] 1.2.840.114 350.1.13.10 4.2.7.2.686 [id number] [facility] 2022-06-25 11:00:00 2022-06-25 11:25:39 Outpatient R MAHNAZ [facility] [id number] [facility] 2022-06-25 11:00:00 2022-06-25 11:25:39 Routine Visit Mahnaz Dumont [facility] REGISTERED TRAVEL NURSE [facility] & CHILD [facility] .2.840.114 350.1.13.10 4.2.7.2.686 [id number] [facility] 2022-05-29 00:00:00 2022-05-29 00:00:00 Abstract Mahnaz Dumont [facility] REGISTERED TRAVEL NURSE [facility]NAL [facility] CHILD [facility] 1.2.840.114 350.1.13.10 4.2.7.2.686 [id number] [facility] 2022-05-29 00:00:00 2022-05-29 00:00:00 Telephone Mahnaz Dumont [facility] REGISTERED TRAVEL NURSE [facility] & CHILD [facility] 1.2.840.114 350.1.13.10 4.2.7.2.686 [id number] [facility] 2022-05-28 11:00:00 2022-05-28 11:00:00 Routine Visit Mahnaz Dumont [facility] REGISTERED TRAVEL NURSE [facility] & CHILD [facility] 1.2.840.114 350.1.13.10 4.2.7.2.686 [id number] [facility] 2022-05-28 11:00:00 2022-05-28 10:42:04 Outpatient R MAHNAZ [facility] [id number] [facility] 2022-05-28 09:30:00 2022-05-28 10:30:00 Furniture Finisher Apprentice Visit Ultrasound, bAby Yip [facility] REGISTERED TRAVEL NURSE [facility] & CHILD [facility] 1.2.840.114 350.1.13.10 4.2.7.2.686 [id number] [facility] 2022-05-08 00:00:00 2022-05-08 00:00:00 Orders Only Doctor Unassigned, [place] [facility] 1.2.840.114 350.1.13.10 4.2.7.2.686 [id number] [facility] 2022-04-30 08:30:00 2022-04-30 10:22:50 Outpatient R MAHNAZ [facility] [id number] [facility] 2022-04-30 08:30:00 2022-04-30 10:22:50 Initial Visit Mahnaz Dumont [facility] [place] 1.840.114 [id number] [facility] 2022-04-30 00:00:00 2022-04-30 00:00:00 Orders Only Doctor Unassigned, [place] [facility] 1.840.114 [id number] [facility] Results Test Description Test Time Test Comments Results Result Co mments Source [facility] - SYPHILIS [id number] 15:29:50* Test Item Value Reference Range Interpretation Comme nts Syphilis IgG/IgM (test code = 02680-3) Non-reactive Non-reactive ELIANA (test code = ELIANA) Non-reactive - No serologic evidence of T. pallidum infection. Cannot exclude incubating or early syphilis. Submit a second specimen in 2-4 weeks if syphilis is clinically suspected. Equivocal - Further testing to follow. Reactive - Further testing to follow. Lab Interpretation (test code = 57167-1) Normal [facility] IMMUNE [id number] 05:04:22* Test Item Value Reference Range Interpretation Comme nts RHIG CANDIDATE? (test code = 5188) No- see comment Patient is not a candidate for RhIg- Patient is Rh Positive.Performed at [facility] Laboratory Services - [facility] Blood [address] [place] [address] [id number] Free: [phone] No. [id number] [facility] Cord [id number] 04:01:01* Test Item Value Reference Range Interpretation Comme nts VENOUS BASE EXCESS, CORD (test code = 3342472607) -0.8 mEq/L VENOUS PH, CORD (test code = 8047161978) 7.42 7.25-7.45 VENOUS PC02, CORD (test code = 5882904096) 37 See_Comment [Automated messa ge] The system which generated this result transmitted reference range: 27 - 49 mmHg. The reference range was not used to interpret this result as normal/abnormal. VENOUS PO2, CORD (test code = 2668877069) 39 See_Comment [Automated me ssage] The system which generated this result transmitted reference range: 17 - 41 mmHg. The reference range was not used to interpret this result as normal/abnormal. VENOUS BICARBONATE, CORD (test code = 3994170828) 23 See_Comment [Automated messa ge] The system which generated this result transmitted reference range: 12 - 29 mEq/L. The reference range was not used to interpret this result as normal/abnormal. [facility] [id number] 03:59:05* Test Item Value Reference Range Interpretation Comme nts BASE EXCESS, CORD (test code = 4493697114) -1.1 mEq/L AC PH, CORD (BEAKER) (test code = 1267425261) 7.33 7.18-7.38 PC02, CORD (test code = 4869126461) 49 See_Comment [Automated messa ge] The system which generated this result transmitted reference range: 32 - 66 mmHg. The reference range was not used to interpret this result as normal/abnormal. PO2, CORD (test code = 6096069669) 22 See_Comment [Automated messa ge] The system which generated this result transmitted reference range: 10 - 30 mmHg. The reference range was not used to interpret this result as normal/abnormal. BICARBONATE, CORD (test code = 7565218103) 26 See_Comment [Automated messa ge] The system which generated this result transmitted reference range: 17 - 27 mEq/L. The reference range was not used to interpret this result as normal/abnormal. [facility] [id number] 01:16:40* Test Item Value Reference Range Interpretation Comme [facility] HIV Semi-quantitative (test code = 10607-2) 0.10 Negative ELIANA (test code = ELIANA) Non-reactive for HIV-1 antigen and HIV-1/HIV-2 antibodies. ?No laboratory evidence of HIV infection. ?Repeat in 2-4 weeks if acute HIV infection is suspected. [facility] 1/2 AG-AB WITH [id number] 22:14:20* Test Item Value Reference Range Interpretation Comme nts HIV Semi-quantitative (test code = 74330-9) 0.10 Negative ELIANA (test code = ELIANA) Non-reactive for HIV-1 antigen and HIV-1/HIV-2 antibodies. ?No laboratory evidence of HIV infection. ?Repeat in 2-4 weeks if acute HIV infection is suspected. [facility] B Surface [id number] 21:27:30 * Test Item Value Reference Range Interpretation Comme nts HBsAg Semi-Quantitative (neda t code = 5195-3) 0.08 Negative [facility] B SURFACE [id number] 21:16:04 * Test Item Value Reference Range Interpretation Comme nts HBsAg Semi-Quantitative (neda t code = 5195-3) 0.09 Negative [facility] with [id number] 19:12:55* Test Item Value Reference Range Interpretation Comme nts WBC (test code = 6690-2) 9.61 See_Comment [Automated messa ge] The system which generated this result transmitted reference range: 4.30 - 11.10 10*3/?L. The reference range was not used to interpret this result as normal/abnormal. RBC (test code = 789-8) 3.96 See_Comment [Automated Xochitl (So-Shee) Gold minesa ge] The system which generated this result transmitted reference range: 3.93 - 5.25 10*6/?L. The reference range was not used to interpret this result as normal/abnormal. HGB (test code = 718-7) 9.8 g/dL 11.6-15.0 L HCT (test code = 4544-3) 30.7 % 35.7-45.2 L MCV (test code = 787-2) 77.5 fL 80.6-95.5 L MCH (test code = 785-6) 24.7 pg 25.9-32.8 L MCHC (test code = 786-4) 31.9 g/dL 31.6-35.1 RDW-SD (test code = 81499-0) 37.6 fL 39.0-49.9 L RDW-CV (test code = 788-0) 13.2 % 12.0-15.5 PLT (test code = 777-3) 204 See_Comment [Automated messa ge] The system which generated this result transmitted reference range: 166 - 358 10*3/?L. The reference range was not used to interpret this result as normal/abnormal. MPV (test code = 62321-5) 10.2 fL 9.5-12.9 NRBC/100 WBC (test code = 1827253095) 0.0 See_Comment [Automated me ssage] The system which generated this result transmitted reference range: 0.0 - 10.0 /100 WBCs. The reference range was not used to interpret this result as normal/abnormal. NRBC x10^3 (test code = 7614543724) See_Comment [Automated messa ge] The system which generated this result transmitted reference range: 10*3/?L. The reference range was not used to interpret this result as normal/abnormal. GRAN MAT (NEUT) % (test code = 770-8) 77.7 % IMM GRAN % (test code = 5496110637) 0.70 % LYMPH % (test code = 736-9) 15.1 % MONO % (test code = 5905-5) 6.1 % EOS % (test code = 713-8) 0.2 % BASO % (test code = 706-2) 0.2 % GRAN MAT x10^3(ANC) (test code = 8590807499) 7.46 10*3/uL 1.88-7.09 H IMM GRAN x10^3 (test code = 7735582754) 0.07 10*3/uL 0.00-0.06 H LYMPH x10^3 (test code = 731-0) 1.45 10*3/uL 1.32-3.29 MONO x10^3 (test code = 742-7) 0.59 10*3/uL 0.33-0.92 EOS x10^3 (test code = 711-2) 0.03-0.39 L BASO x10^3 (test code = 704-7) 0.01-0.07 Lab Interpretation (test code = 03212-3) Abnormal [facility]view[facility] Screen - ONCE [id number] 17:55:00 * Test Item Value Reference Range Interpretation Comme nts ABO & RH (test code = 20) AB POSITIVE IAT (test code = 1185) Negative [facility] URINALYSIS W SPECIFIC [id number] 14:41:00* Test Item Value Reference Range Interpretation Comme nts POCT U SP GRAV (test code = 3255) . 1.005-1.025 POCT PH U (test code = 3254) . 5-8 POCT U LEUK EST (test code = 3263) . Negative - Negative POCT U NIT (test code = 3262) . Negative - Negati ve POCT U PROT (test code = 3259) trace Negative - Negat joey POCT U GLU (test code = 3256) negative Negative - Negati ve POCT U KETONE (test code = 3258) . Negative - Neg ative POCT U UROBILI (test code = 3260) . 0.2-1 POCT U BILI (test code = 3261) . Negative - Negat joey POCT U BLD (test code = 3257) . Negative - Negati ve POCT U COLOR (test code = 3266) . POCT U APPEAR (test code = 3267) . [facility] URINALYSIS W SPECIFIC [id number] 15:31:00* Test Item Value Reference Range Interpretation Comme nts POCT U SP GRAV (test code = 3255) . 1.005-1.025 POCT PH U (test code = 3254) . 5-8 POCT U LEUK EST (test code = 3263) . Negative - Negative POCT U NIT (test code = 3262) . Negative - Negati ve POCT U PROT (test code = 3259) negative Negative - Negat joey POCT U GLU (test code = 3256) trace Negative - Negati ve POCT U KETONE (test code = 3258) . Negative - Neg ative POCT U UROBILI (test code = 3260) . 0.2-1 POCT U BILI (test code = 3261) . Negative - Negat joey POCT U BLD (test code = 3257) . Negative - Negati ve POCT U COLOR (test code = 3266) . POCT U APPEAR (test code = 3267) . [facility] URINALYSIS W SPECIFIC [id number] 14:00:00* Test Item Value Reference Range Interpretation Comme nts POCT U SP GRAV (test code = 3255) . 1.005-1.025 POCT PH U (test code = 3254) . 5-8 POCT U LEUK EST (test code = 3263) . Negative - N egative POCT U NIT (test code = 3262) . Negative - Negati ve POCT U PROT (test code = 3259) trace Negative - Negat joey POCT U GLU (test code = 3256) neg Negative - Negati ve POCT U KETONE (test code = 3258) . Negative - Neg ative POCT U UROBILI (test code = 3260) . 0.2-1 POCT U BILI (test code = 3261) . Negative - Negat joey POCT U BLD (test code = 3257) . Negative - Negati ve POCT U COLOR (test code = 3266) . POCT U APPEAR (test code = 3267) . [facility] URINALYSIS W SPECIFIC [id number] 18:55:00* Test Item Value Reference Range Interpretation Comme nts POCT U SP GRAV (test code = 3255) . 1.005-1.025 POCT PH U (test code = 3254) . 5-8 POCT U LEUK EST (test code = 3263) . Negative - N egative POCT U NIT (test code = 3262) .. Negative - Negati ve POCT U PROT (test code = 3259) trace Negative - Negat joey POCT U GLU (test code = 3256) neg Negative - Negati ve POCT U KETONE (test code = 3258) . Negative - Neg ative POCT U UROBILI (test code = 3260) . 0.2-1 POCT U BILI (test code = 3261) . Negative - Negat joey POCT U BLD (test code = 3257) . Negative - Negati ve POCT U COLOR (test code = 3266) . POCT U APPEAR (test code = 3267) . [facility] URINALYSIS W SPECIFIC [id number] 14:15:00* Test Item Value Reference Range Interpretation Comme nts POCT U SP GRAV (test code = 3255) . 1.005-1.025 POCT PH U (test code = 3254) . 5-8 POCT U LEUK EST (test code = 3263) . Negative - N egative POCT U NIT (test code = 3262) . Negative - Negati ve POCT U PROT (test code = 3259) trace Negative - Negat joey POCT U GLU (test code = 3256) neg Negative - Negati ve POCT U KETONE (test code = 3258) . Negative - Neg ative POCT U UROBILI (test code = 3260) . 0.2-1 POCT U BILI (test code = 3261) . Negative - Negat joey POCT U BLD (test code = 3257) . Negative - Negati ve POCT U COLOR (test code = 3266) . POCT U APPEAR (test code = 3267) . [facility] URINALYSIS W SPECIFIC [id number] 14:15:00* Test Item Value Reference Range Interpretation Comme nts POCT U SP GRAV (test code = 3255) . 1.005-1.025 POCT PH U (test code = 3254) . 5-8 POCT U LEUK EST (test code = 3263) . Negative - N egative POCT U NIT (test code = 3262) . Negative - Negati ve POCT U PROT (test code = 3259) trace Negative - Negat joey POCT U GLU (test code = 3256) neg Negative - Negati ve POCT U KETONE (test code = 3258) . Negative - Neg ative POCT U UROBILI (test code = 3260) . 0.2-1 POCT U BILI (test code = 3261) . Negative - Negat joey POCT U BLD (test code = 3257) . Negative - Negati ve POCT U COLOR (test code = 3266) . POCT U APPEAR (test code = 3267) . [facility] URINALYSIS W SPECIFIC [id number] 18:55:00* Test Item Value Reference Range Interpretation Comme nts POCT U SP GRAV (test code = 3255) . 1.005-1.025 POCT PH U (test code = 3254) . 5-8 POCT U LEUK EST (test code = 3263) . Negative - N egative POCT U NIT (test code = 3262) . Negative - Negati ve POCT U PROT (test code = 3259) trace Negative - Negat joey POCT U GLU (test code = 3256) neg Negative - Negati ve POCT U KETONE (test code = 3258) . Negative - Neg ative POCT U UROBILI (test code = 3260) . 0.2-1 POCT U BILI (test code = 3261) . Negative - Negat joey POCT U BLD (test code = 3257) . Negative - Negati ve POCT U COLOR (test code = 3266) . POCT U APPEAR (test code = 3267) . [facility] URINALYSIS W SPECIFIC [id number] 14:01:00* Test Item Value Reference Range Interpretation Comme nts POCT U SP GRAV (test code = 3255) . 1.005-1.025 POCT PH U (test code = 3254) . 5-8 POCT U LEUK EST (test code = 3263) . Negative - N egative POCT U NIT (test code = 3262) . Negative - Negati ve POCT U PROT (test code = 3259) TRACE Negative - Negat joey POCT U GLU (test code = 3256) NEG Negative - Negati ve POCT U KETONE (test code = 3258) . Negative - Neg ative POCT U UROBILI (test code = 3260) . 0.2-1 POCT U BILI (test code = 3261) . Negative - Negat joey POCT U BLD (test code = 3257) . Negative - Negati ve POCT U COLOR (test code = 3266) . POCT U APPEAR (test code = 3267) . [facility] URINALYSIS W SPECIFIC [id number] 18:00:00* Test Item Value Reference Range Interpretation Comme nts POCT U SP GRAV (test code = 3255) . 1.005-1.025 POCT PH U (test code = 3254) . 5-8 POCT U LEUK EST (test code = 3263) . Negative - N egative POCT U NIT (test code = 3262) . Negative - Negati ve POCT U PROT (test code = 3259) Trace Negative - Negat joey POCT U GLU (test code = 3256) Neg Negative - Negati ve POCT U KETONE (test code = 3258) . Negative - Neg ative POCT U UROBILI (test code = 3260) . 0.2-1 POCT U BILI (test code = 3261) . Negative - Negat joey POCT U BLD (test code = 3257) . Negative - Negati ve POCT U COLOR (test code = 3266) . POCT U APPEAR (test code = 3267) . [facility] URINALYSIS W SPECIFIC [id number] 15:57:00* Test Item Value Reference Range Interpretation Comme nts POCT U SP GRAV (test code = 3255) . 1.005-1.025 POCT PH U (test code = 3254) . 5-8 POCT U LEUK EST (test code = 3263) . Negative - N egative POCT U NIT (test code = 3262) . Negative - Negati ve POCT U PROT (test code = 3259) trace Negative - Negat joey POCT U GLU (test code = 3256) neg Negative - Negati ve POCT U KETONE (test code = 3258) . Negative - Neg ative POCT U UROBILI (test code = 3260) . 0.2-1 POCT U BILI (test code = 3261) . Negative - Negat joey POCT U BLD (test code = 3257) . Negative - Negati ve POCT U COLOR (test code = 3266) POCT U APPEAR (test code = 3267) .. [facility] URINALYSIS W SPECIFIC [id number] 14:44:00* Test Item Value Reference Range Interpretation Comme nts POCT U SP GRAV (test code = 3255) . 1.005-1.025 POCT PH U (test code = 3254) . 5-8 POCT U LEUK EST (test code = 3263) . Negative - N egative POCT U NIT (test code = 3262) . Negative - Negati ve POCT U PROT (test code = 3259) trace Negative - Negat joey POCT U GLU (test code = 3256) neg Negative - Negati ve POCT U KETONE (test code = 3258) . Negative - Neg ative POCT U UROBILI (test code = 3260) . 0.2-1 POCT U BILI (test code = 3261) . Negative - Negat joey POCT U BLD (test code = 3257) . Negative - Negati ve POCT U COLOR (test code = 3266) . POCT U APPEAR (test code = 3267) . [facility] URINALYSIS W SPECIFIC [id number] 14:12:00* Test Item Value Reference Range Interpretation Comme nts POCT U SP GRAV (test code = 3255) . 1.005-1.025 POCT PH U (test code = 3254) . 5-8 POCT U LEUK EST (test code = 3263) . Negative - N egative POCT U NIT (test code = 3262) . Negative - Negati ve POCT U PROT (test code = 3259) 30 Negative - Negat joey POCT U GLU (test code = 3256) NEG Negative - Negati ve POCT U KETONE (test code = 3258) . Negative - Neg ative POCT U UROBILI (test code = 3260) . 0.2-1 POCT U BILI (test code = 3261) . Negative - Negat joey POCT U BLD (test code = 3257) . Negative - Negati ve POCT U COLOR (test code = 3266) . POCT U APPEAR (test code = 3267) . [facility] URINALYSIS W SPECIFIC [id number] 14:12:00* Test Item Value Reference Range Interpretation Comme nts POCT U SP GRAV (test code = 3255) . 1.005-1.025 POCT PH U (test code = 3254) . 5-8 POCT U LEUK EST (test code = 3263) . Negative - N egative POCT U NIT (test code = 3262) . Negative - Negati ve POCT U PROT (test code = 3259) 30 Negative - Negat joey POCT U GLU (test code = 3256) NEG Negative - Negati ve POCT U KETONE (test code = 3258) . Negative - Neg ative POCT U UROBILI (test code = 3260) . 0.2-1 POCT U BILI (test code = 3261) . Negative - Negat joey POCT U BLD (test code = 3257) . Negative - Negati ve POCT U COLOR (test code = 3266) . POCT U APPEAR (test code = 3267) . [facility] URINALYSIS W SPECIFIC [id number] 14:12:00* Test Item Value Reference Range Interpretation Comme nts POCT U SP GRAV (test code = 3255) . 1.005-1.025 POCT PH U (test code = 3254) . 5-8 POCT U LEUK EST (test code = 3263) . Negative - N egative POCT U NIT (test code = 3262) . Negative - Negati ve POCT U PROT (test code = 3259) 30 Negative - Negat joey POCT U GLU (test code = 3256) NEG Negative - Negati ve POCT U KETONE (test code = 3258) . Negative - Neg ative POCT U UROBILI (test code = 3260) . 0.2-1 POCT U BILI (test code = 3261) . Negative - Negat joey POCT U BLD (test code = 3257) . Negative - Negati ve POCT U COLOR (test code = 3266) . POCT U APPEAR (test code = 3267) . [facility] URINALYSIS W SPECIFIC [id number] 16:14:00* Test Item Value Reference Range Interpretation Comme nts POCT U SP GRAV (test code = 3255) . 1.005-1.025 POCT PH U (test code = 3254) . 5-8 POCT U LEUK EST (test code = 3263) . Negative - N egative POCT U NIT (test code = 3262) . Negative - Negati ve POCT U PROT (test code = 3259) trace Negative - Negat joey POCT U GLU (test code = 3256) neg Negative - Negati ve POCT U KETONE (test code = 3258) . Negative - Neg ative POCT U UROBILI (test code = 3260) . 0.2-1 POCT U BILI (test code = 3261) . Negative - Negat joey POCT U BLD (test code = 3257) . Negative - Negati ve POCT U COLOR (test code = 3266) .. POCT U APPEAR (test code = 3267) . [facility] URINALYSIS W SPECIFIC [id number] 16:14:00* Test Item Value Reference Range Interpretation Comme nts POCT U SP GRAV (test code = 3255) . 1.005-1.025 POCT PH U (test code = 3254) . 5-8 POCT U LEUK EST (test code = 3263) . Negative - N egative POCT U NIT (test code = 3262) . Negative - Negati ve POCT U PROT (test code = 3259) trace Negative - Negat joey POCT U GLU (test code = 3256) neg Negative - Negati ve POCT U KETONE (test code = 3258) . Negative - Neg ative POCT U UROBILI (test code = 3260) . 0.2-1 POCT U BILI (test code = 3261) . Negative - Negat joey POCT U BLD (test code = 3257) . Negative - Negati ve POCT U COLOR (test code = 3266) .. POCT U APPEAR (test code = 3267) . [facility] URINALYSIS W SPECIFIC [id number] 16:14:00* Test Item Value Reference Range Interpretation Comme nts POCT U SP GRAV (test code = 3255) . 1.005-1.025 POCT PH U (test code = 3254) . 5-8 POCT U LEUK EST (test code = 3263) . Negative - N egative POCT U NIT (test code = 3262) . Negative - Negati ve POCT U PROT (test code = 3259) trace Negative - Negat joey POCT U GLU (test code = 3256) neg Negative - Negati ve POCT U KETONE (test code = 3258) . Negative - Neg ative POCT U UROBILI (test code = 3260) . 0.2-1 POCT U BILI (test code = 3261) . Negative - Negat joey POCT U BLD (test code = 3257) . Negative - Negati ve POCT U COLOR (test code = 3266) .. POCT U APPEAR (test code = 3267) . [facility] SPECIFIC [id number] 15:26:00* Test Item Value Reference Range Interpretation Comme nts POCT U SP GRAV (test code = 3255) . 1.005-1.025 POCT PH U (test code = 3254) . 5-8 POCT U LEUK EST (test code = 3263) . Negative - N egative POCT U NIT (test code = 3262) . Negative - Negati ve POCT U PROT (test code = 3259) trace Negative - Negat joey POCT U GLU (test code = 3256) neg Negative - Negati ve POCT U KETONE (test code = 3258) . Negative - Neg ative POCT U UROBILI (test code = 3260) . 0.2-1 POCT U BILI (test code = 3261) . Negative - Negat joey POCT U BLD (test code = 3257) . Negative - Negati ve POCT U COLOR (test code = 3266) . POCT U APPEAR (test code = 3267) . [facility] - SYPHILIS [id number] 15:42:19* Test Item Value Reference Range Interpretation Comme [facility] Syphilis IgG/IgM (test code = 78285-9) Non-reactive Non-reactive ELIANA (test code = ELIANA) Non-reactive - No serologic evidence of T. pallidum infection. Cannot exclude incubating or early syphilis. Submit a second specimen in 2-4 weeks if syphilis is clinically suspected. Equivocal - Further testing to follow. Reactive - Further testing to follow. Lab Interpretation (test code = 93355-8) Normal [facility]-AB WITH [id number] 09:48:44* Test Item Value Reference Range Interpretation Comme nts HIV Semi-quantitative (test code = 83524-8) 0.08 Negative ELIANA (test code = ELIANA) Non-reactive for HIV-1 antigen and HIV-1/HIV-2 antibodies. ?No laboratory evidence of HIV infection. ?Repeat in 2-4 weeks if acute HIV infection is suspected. [facility] SURFACE [id number] 07:57:12 * Test Item Value Reference Range Interpretation Comme nts HBsAg Semi-Quantitative (neda t code = 5195-3) 0.06 Negative [facility] WITH [id number] 06:18:49* Test Item Value Reference Range Interpretation Comme nts WBC (test code = 6690-2) 7.53 See_Comment [Automated messa ge] The system which generated this result transmitted reference range: 4.30 - 11.10 10*3/?L. The reference range was not used to interpret this result as normal/abnormal. RBC (test code = 789-8) 4.74 See_Comment [Automated messa ge] The system which generated this result transmitted reference range: 3.93 - 5.25 10*6/?L. The reference range was not used to interpret this result as normal/abnormal. HGB (test code = 718-7) 13.0 g/dL 11.6-15.0 HCT (test code = 4544-3) 39.7 % 35.7-45.2 MCV (test code = 787-2) 83.8 fL 80.6-95.5 MCH (test code = 785-6) 27.4 pg 25.9-32.8 MCHC (test code = 786-4) 32.7 g/dL 31.6-35.1 RDW-SD (test code = 87716-2) 43.4 fL 39.0-49.9 RDW-CV (test code = 788-0) 14.2 % 12.0-15.5 PLT (test code = 777-3) 308 See_Comment [Automated messa ge] The system which generated this result transmitted reference range: 166 - 358 10*3/?L. The reference range was not used to interpret this result as normal/abnormal. MPV (test code = 85609-2) 9.3 fL 9.5-12.9 L NRBC/100 WBC (test code = 7971874660) 0.0 See_Comment [Automated me ssage] The system which generated this result transmitted reference range: 0.0 - 10.0 /100 WBCs. The reference range was not used to interpret this result as normal/abnormal. NRBC x10^3 (test code = 4139758028) See_Comment [Automated messa ge] The system which generated this result transmitted reference range: 10*3/?L. The reference range was not used to interpret this result as normal/abnormal. GRAN MAT (NEUT) % (test code = 770-8) 71.1 % IMM GRAN % (test code = 1886614738) 0.30 % LYMPH % (test code = 736-9) 22.7 % MONO % (test code = 5905-5) 5.3 % EOS % (test code = 713-8) 0.3 % BASO % (test code = 706-2) 0.3 % GRAN MAT x10^3(ANC) (test code = 1935852676) 5.36 10*3/uL 1.88-7.09 IMM GRAN x10^3 (test code = 7939952845) 0.00-0.06 LYMPH x10^3 (test code = 731-0) 1.71 10*3/uL 1.32-3.29 MONO x10^3 (test code = 742-7) 0.40 10*3/uL 0.33-0.92 EOS x10^3 (test code = 711-2) 0.03-0.39 L BASO x10^3 (test code = 704-7) 0.01-0.07 Lab Interpretation (test code = 84648-5) [facility] [id number] 15:24:00 * Test Item Value Reference Range Interpretation Comme nts ABO & RH (test code = 20) AB POSITIVE IAT (test code = 1185) Negative [facility] [id number] 13:58:00* Test Item Value Reference Range Interpretation Comme nts POCT PREG (test code = 1605) Positive On board controls acceptable with C Line (test code = 3574) Yes POCT PREG LOT # (test code = 3575) POCT PREG TEST DATE ( test code = 3576) [facility] URINALYSIS W/O SPECIFIC [id number] 13:58:00* Test Item Value Reference Range Interpretation Comme nts POCT PH U (test code = 3254) 8 mg/dl 5-8 POCT U LEUK EST (test code = 3263) 2+ Negative - Negative POCT U NIT (test code = 3262) Neg Negative - Negati ve POCT U PROT (test code = 3259) Trace Negative - Negat joey POCT U GLU (test code = 3256) Neg Negative - Negati ve POCT U KETONE (test code = 3258) None Negative - Neg ative POCT U BLD (test code = 3257) Trace Negative - Negati ve [facility] [id number] 13:58:00* Test Item Value Reference Range Interpretation Comme nts POCT PREG (test code = 1605) Positive On board controls acceptable with C Line (test code = 3574) Yes POCT PREG LOT # (test code = 3575) POCT PREG TEST DATE ( test code = 3576) [facility] URINALYSIS W/O SPECIFIC [id number] 13:58:00* Test Item Value Reference Range Interpretation Comme nts POCT PH U (test code = 3254) 8 mg/dl 5-8 POCT U LEUK EST (test code = 3263) 2+ Negative - Negative POCT U NIT (test code = 3262) Neg Negative - Negati ve POCT U PROT (test code = 3259) Trace Negative - Negat joey POCT U GLU (test code = 3256) Neg Negative - Negati ve POCT U KETONE (test code = 3258) None Negative - Neg ative POCT U BLD (test code = 3257) Trace Negative - Negati ve [facility] History and Physical Notes Date/Time Note Provider Source 2022-10-02 10:57:42 [id number]:57:42F ormatting of this note is different from the original.TRIAGE/L&D HISTORY & PHYSICALIDENTIFYING DATAYanet Forte is 22 year old, /White, 37w2d, female with ELLYN 10/21/2022, by Last Menstrual Period. : 2000MRN: [id number] Care Physician: Mahnaz ThorntonsipeCHIEF COMPLAINTDecreased movementHISTORY OF PRESENT ILLNESSYanet Forte is a 22 year old at 37w2d who presents for decreased movement.Patient denies vaginal bleeding, reports trickling vaginal fluid, but denies large gush, denies contractions. Patient denies headache, denies nausea/vomiting, denies RUQ pain, denies visual abnormalities.Endorses normal movement.PAST OBSTETRIC HISTORYOB History Para Term AB Living 8 2 2 5 2 SAB IAB Ectopic Multiple Live Births 5 2 # Outcome Date GA Lbr Marbin/2nd Weight Sex Delivery Anes PTL Lv 8 Current 7 SAB 09/17/21 12w0d 6 Term 02/15/21 38w0d 3033 g M Vag-Spont N LUCIANO Complications: Placenta Previa 5 SAB 03/03/20 9w0d 4 SAB 10/11/19 8w0d 3 SAB 02/11/19 13w0d 2 SAB 03/12/18 7w0d 1 Term 04/09/16 38w0d 3090 g M N LUCINAO Obstetric Comments R[facility] for [facility] for hospital and care PAST MEDICAL HISTORYProblem list: Patient Active Problem List Diagnosis Date Noted 37 weeks gestation of 10/02/2022 Decreased movement 10/02/2022 36 weeks gestation of 09/26/2022 UTI (urinary tract infection) 09/26/2022 Uterine contractions 09/26/2022 Atypical squamous cells of undetermined significance (ASCUS) on Papanicolaou smear of cervix 05/12/2022 Supervision of high-risk 04/30/2022 History of placenta previa 04/30/2022 Anxiety and depression 04/30/2022 Marijuana use 04/30/2022 Multiparity 04/30/2022 Operations: No past surgical history on file.Past Medical History: Diagnosis Date Anxiety and depression 04/30/2022 CURRENT HEALTH STATUSMedications: Current Facility-Administered Medications Medication Dose Route Frequency Last Rate Last Admin D5W-LR IV infusion 1,000 mL 1,000 mL IV Infusion TITRATE 125 mL/hr at 10/02/22 1312 1,000 mL at 10/02/22 1312 lactated ringers IV infusion 500 mL 500 mL IV Infusion PRN - SEE INSTRUCTIONS lidocaine 1% (PF) (XYLOCAINE) injection 0.3 mL 0.3 mL Infiltration PRN - SEE INSTRUCTIONS lidocaine 1% (XYLOCAINE) 10 mg/mL (1 %) injection 50 mL 50 mL Infiltration PRN - SEE INSTRUCTIONS oxytocin (PITOCIN) 30 units in NS 500 mL IV infusion 2-40 michelle-units/min IV Infusion TITRATE sodium citrate-citric acid (BICITRA) 500-334 mg/5 mL solution 30 mL 30 mL Oral PRE-PROCEDURE ONCE Allergies and drug reactions: Tramadol and Pitocin [oxytocin]HOME MEDICATIONSMedications Prior to Admission Medication Sig Dispense Refill Last Dose metroNIDAZOLE (FLAGYL) 500 mg tablet Take 1 tablet by mouth every 12 (twelve) hours. 14 tablet 0 ascorbic acid, vitamin C, 500 mg tablet Take 1 tablet by mouth in the morning and 1 tablet at noon and 1 tablet in the evening. 90 tablet 2 ferrous sulfate 325 mg (65 mg iron) tablet Take 1 tablet by mouth in the morning and 1 tablet in the evening. 60 tablet 3 Nitrofurantoin&Nit. Macrocryst 100 mg capsule Take 1 capsule by mouth in the morning and 1 capsule in the evening. Do all this for 7 days. 14 capsule 0 multivitamin ( VITAMIN) tablet Take 1 tablet by mouth in the morning. 90 tablet 3 SOCIAL HISTORYTobacco History: Social History Tobacco Use Smoking Status Never Passive exposure: Never Smokeless Tobacco Never Drug History: Social History Substance and Sexual Activity Drug Use Not Currently Types: Marijuana Comment: used daily- last intake 1.5 months ago Alcohol History: Social History Substance and Sexual Activity Alcohol Use Never FAMILY HISTORYFamily History Problem Relation Age of Onset High cholesterol Mother Depression Mother Crohns Paternal Grandmother High cholesterol Paternal Grandfather REVIEW OF SYSTEMSGeneral: negativeSkin: negativeHEENT: negative, - headache, - change in visionNeck: negativeHEME: negativeResp: negativeCardio: negativeGI: negative, (-) nausea, (-) vomitingGU: negativeEndo: negativeNeuro: negativeBack: negativeMSS: negativePsych: negativeVITAL SIGNSBP: (101-115)/(60-76) Temp: [36.6 ?C (97.9 ?F)-37.1 ?C (98.8 ?F)] Temp source: Oral (10/02 1115)Pulse: [86-103] Resp: [16-17] SpO2: [96 %-99 %] Height: [165.1 cm (5' 5")] Weight: [74.4 kg (164 lb)-75.2 kg (165 lb 12.8 oz)] BMI (calculated): [0-27.36] PHYSICAL EXAMINATIONSGeneral: patient alert and in no acute distressHEENT: symmetric, negative for massesLungs: unlabored breathingCardiology: peripheral pulses intact and regularAbdomen: soft, non-tender, non-distended, no liver, spleen or abnormal masses palpated and GravidExtremities: no clubbing, cyanosis, or edemaNeuro: patient moving all extremities, no facial droopGU: SVE: 350/-2 REVIEW OF LABORATORY, PATHOLOGY, AND RADIOLOGY DATALab results:Type & Screen Lab Results Component Value Date/Time IABORH AB POSITIVE 10/02/2022 12:45 PM IAT Negative 04/30/2022 10:20 AM SerologiesLab Results Component Value Date/Time VZVIGG Positive 04/30/2022 10:20 AM RUBG Positive 04/30/2022 10:20 AM SYPIGG Non-reactive 07/31/2022 10:05 AM HBSAG Negative 04/30/2022 10:20 AM HBSAG 0.06 04/30/2022 10:20 AM ChlamydiaLab Results Component Value Date/Time VCAA Negative 09/23/2022 11:20 AM Group B StrepLab Results Component Value Date/Time CGB Negative 09/23/2022 11:20 AM GTTLab Results Component Value Date/Time NTPX5AM 106 (L) 07/16/2022 10:07 AM CBCLab Results Component Value Date/Time HGB 10.3 (L) 09/23/2022 11:20 AM HCT 32.0 (L) 09/23/2022 11:20 AM PLT 236 09/23/2022 11:20 AM Active Hospital Problems Diagnosis Date Noted 37 weeks gestation of 10/02/2022 Decreased movement 10/02/2022 Multiparity 04/30/2022 Resolved Hospital Problems No resolved problems to display. Present on Admission: 37 weeks gestation of Multiparity Decreased movementPlacenta Accreta ScreeningPrior ? : NoPrior Uterine Surgery?: NoPlacenta low lying/previa in current ? : NoUltrasound suspicion of PASD in current ?: NoScreening outcome:A positive screening outcome indicates a history of prior delivery or prior uterine surgery, AND the presence of either a placenta low lying/previa or ultrasound suspicion of PASD in the current . Negative screening.ASSESSMENT AND PLANAshley Jemma Forte is a 22 year old at 37w2d by d/u(18) who presents for decreased movement.IOL- Denies ctx, vb, reports some leakage of fluid, reports decreased movement- SVE: 3 / 50 % / -2 - Contractions (number / 10 minute): 1- Plan: Proceed with IOL with pitocin titrationMPDPS- No surgical hx- 164 lbs- Patient counseled and still desires BTL, see separate counseling note- Consents signed 07/16/22Low lying placenta (resolved)- Placenta posterior fundal and low lying @ 28w0d, resolved on all future scans- Most recent MFM US on 09/19 showing fundal placenta without previa- Hx of placenta previa in prior , resolved, FGR (resolved)- EFW 8%ile at 32w3d, normal dopplers- WYATT/dopplers and biweekly NSTs all reassuring- EFW: 2298 g, 16%tile AC 18%ile MFM Scan 09/19, resolved FGR Abnormal Pap- ASCUS pap on 04/30/22- Needs colposcopy PPAntepartum course reviewed- 1 h 106, sero negative, Rimmune, VZVimmune, HPV not immune, AB positive/IAT negative, GBS negative, Pap ASCUS 04/30/22- H/H, plt: 10.3 / 32.0, 236 on 09/23/22- PP control plan[facility] Presentation on admission: cephalic - Fundal placenta - EFW: 3067 g, 48%tile, WYATT 8.3 cm on BSUS by R1- FHT reactive and reassuring- Normal anatomy scanD/w Dr. Winsome Hopkins MD ssociated attestation - Placido Alston MD - 10/02/2022 2:30 PM CDT Admitted for delivery, decreased movements at term.11589-3Gmgwqzz and physical [id number], Luis Diego1.2.840.717417.1.13.104.2.7.2.514775C kylonwCvuvQrmgdNX5301-61-27I31:30:11Histor y and physical noteTXT1.2.840.888666.1.13.104.2.7.2.45426 9|[id number] for patient efup10950-6Hjzdhgd and physical noteLNUT[address] Setd[id number] OWZLNQNCRHIHHHAY3820-92-22E36:30:111.2.840 .396109.1.72.3.15|1.2.840.491242.1.13.104. 2.7.2.727879_[id number] [facility] Procedure Notes Date/Time Note Provider Source 2022-10-02 21:13:48 8512-39-53Q90:13:48A ssociated Order(s): Central Neuraxial Block Central Neuraxial Block Date/Time: 10/02/2022 9:13 PMPerformed by: Nixon Castano DOAuthorized by: Placido Alston MD Patient Location: OBEnd Time: 10/02/2022 9:13 PMReason for Block: OB request, Patient request, Labor analgesia, Surgical anesthesia and Post-op pain managementStaff: Anesthesiologist: French Hayden MD Resident/TIMBER HARVESTER OPERATOR: Nixon Castano DO Performed by: resident/CRNAPreanesthetic Checklist: patient identified, IV checked, risks and benefits explained, monitors and equipment checked, timeout performed, pre-op evaluation, site marked and anesthesia consentProcedure: Type of Neuraxial: Epidural Sterility Prep gloves, mask, cap, drape and hand hygiene Prep: Betadine and patient draped Monitoring: heart rate, continuous pulse ox, heart rate / toco and NIBP Location: lumbar (1-5) Lumbar: L3-L4 Approach: midline Technique: catheter, BERNADETTE saline and BERNADETTE air Guidance with: landmark technique}Epidural/Spinal [place] and/or Catheter: Epidural/Spinal Kit: BBraun Needle Type: Tuohy Needle Gauge: 17 G Needle Length: 3.5 in (8.89 cm) Needle Insertion Depth: 5 Catheter Type: multiport Catheter Size: 19 G Catheter at Skin Depth: 10 Number of Attempts: 1 Test Dose: lidocaine 1.5% with epinephrine 1-to-200,000 and negative Dose: 3 cc Catheter Securement Method: surgical tape, Tegaderm, clear occlusive dressing and liquid medical adhesiveAssessment: Sensory Level: above T10 Block Outcome: a full evaluation is pending, patient comfortable, patient satisfied, patient tolerated procedure well, positive pain relief and successful block Procedure Assessment: patient tolerated procedure well with no complicationsNotes: Timeout was performed. Pt prepped and draped in usual sterile fashion. Skin anesthetized with lidocaine wheal at L3/4/5 interspace. Negative aspiration x3, negative test dose. Loss and secured as detailed above.Attempts x 1, no immediate complications apparent. 49442-6Aqtuxbdpjrqlad procedure vbxbTZ7013-61-57X06:14:06Anesthesiology procedure noteTXT1.2.840.703774.1.13.104.2.7.2.76998 9|[id number] for patient jsmv28601-0Gdmpkhjs operation note[address] Lyvo[id number] LZUXFIRFMPAMYIGA9790-40-00X09:14:061.2.840 .835698.1.72.3.15|1.2.840.013447.1.13.104. 2.7.2.727879_[id number] [facility] Notes Date/Time Note Provider Source 2022-10-03 20:55:25 1036-39-73B40:55:25Formatting of this no te might be different from the original.Problem: Discharge Planning - PostpartumGoal: Adequate for dischargeOutcome: Progressing as expectedGoal: Mood stableOutcome: Progressing as expected Problem: Breast-feeding - IneffectiveGoal: Effective breast-feedingOutcome: Progressing as expected 90494-7Prfu of care nsztVA2500-77-98G48:55:29Plan of care noteTXT1.2.840.828583.1.13.104.2.7.2.149354| [id number] for patient [id number] Morgan RN[address] Dw[id number] MADJWOFWDJVINF0205-80-28D58:55:291.2.840.114 350.1.72.3.15|1.2.840.367558.1.13.104.2.7.2. [id number] Edison Gómez RN [facility] 2022-10-03 12:30:00 5962-88-90Y75:30:00Formatting of this no te is different from the original.Images from the original note were not included.This note was copied from a baby's chart. Assessment (most recent) Assessment - 10/03/22 1230 General Information Visit Initial Percent of weight loss- 0.58 Number of voids last 24 hours- Infant 2 Number of stools last 24 hours- Infant 3 Mom's age (years) 22 years Gestational age 37.2 weeks 8 Parity 3 Living Children 3 Feeding plan Breast Breastfeed previously Yes Duration Breastfed her 6 year old for 3 months and her 1 year old for 6 months plans As long as possible Planned maternity leave Stay at home mom Breast Pump Has Breast Pump [employer] Medicaid;WIC Maternal medications prior to admission vitamin;Iron Delivery method Breast changes during Enlarged Periods Regular Drug History Yes H/O marijuanna use. Pt stated she lived in [place] at the time and her Dr recomended marijuana for n/v becuase othr medications were not working. Patient reports that she does not plan to use again. Mental health history Depression;Anxiety Oral Assessment Oral assessment New assessment Date of 10/02/22 Time of 1044 Infant location Mother Baby Unit Chin Normal Palate assessment Normal Tongue assessment Normal Upper lip assessment Normal head assessment No abnormalities Is this a multiple ? No Breast Assessment Breast Assessment Initial Symmetry Symmetrical Size L (D-DD) Shape Rounded Other Soft Scars on breast: No Nipple & Areola Assessment Left Areola Pliable Right Areola Pliable Left Nipple Colostrum visible;Intact;Everted Right Nipple Colostrum visible;Intact;Everted Literature Resources Resources guide;Understanding Mother and Baby Care; channel Education 6 months exclusive , up to and beyond 1 year with complimentary foods; hunger cues;On-demand feeds at least 8 or more over 24 hours;Diaper counts/color;Benefits of breastmilk;Hand expression;Benefits of skin to skin contact;Encouraged rooming-in;Signs of an effective latch;Infant stomach size;Calming techniques;2nd day/growth spurt cluster feeds;Position changes;Breaking seal;Maternal nutrition/hydration;Lactogenesis;Benefits of breast massage and hand expression;Engorgement signs and treatment;Risks of mastitis and signs, seek medical attention immediately Handouts given [employer] Observation Pumping No Reported;Mom states infant latches well with no pain Follow up Mom will call staff;[facility] warmline;[facility] Recommended Feeding Plan Recommended feeding plan On-demand , 8-12 times in 24 hours not to exceed 6 hours between feeds;Frequent tzvu-ta-tjtg time with parents Mom has a history of marijuana use during . Mom states that she does not plan to use marijuana further while . Discussed with mom risks of marijuana use while and that it is 8 times higher in breastmilk than in mom's blood. Mom taught that THC and marijuana gets into breast milk and may affect baby's brain. THC is stored in body fat and baby's brain and body contain a lot of fat. Since baby's brain and body may store THC for a long time, encouraged mom not to use marijuana while . It may damage baby's brain, making it hard for the child to pay attention and learn later in life. Mare Bender, MSN, RNC-MNN, IBCLC 58274-1Dllfpelapl UizyBI4647-66-28U42:03:29Obstetrics NoteTXT1.2.840.689700.1.13.104.2.7.2.970371| [id number] for patient cxyd89451-9VyajDY682580673Xansf D Yulia CERNA[address]ang [id number] TTAFJCNPHERJHO1418-63-31N15:03:291.2.840.114 350.1.72.3.15|1.2.840.292420.1.13.104.2.7.2. [id number] Mare Gonzalez Yulia CERNA [facility] 2022-10-03 12:02:10 0401-84-11R46:02:10Formatting of this no te might be different from the original.Problem: Discharge Planning - PostpartumGoal: Adequate for dischargeOutcome: Progressing as expectedGoal: Mood stableOutcome: Progressing as expected Problem: Breast-feeding - IneffectiveGoal: Effective breast-feedingOutcome: Progressing as expected 43171-7Rhwy of care idnsID1019-02-32C24:02:14Plan of care noteTXT1.2.840.536845.1.13.104.2.7.2.735893| [id number] for patient kwji73268-5JpmlNN530043523Nzkp N Brown [id number] GKZAICPRYVBMSH5965-03-23H61:02:141.2.840.114 350.1.72.3.15|1.2.840.444314.1.13.104.2.7.2. [id number] Christen Grove RN [facility] 2022-10-03 03:06:57 2454-70-01F29:06:57Formatting of this no te might be different from the original.Problem: Discharge Planning - PostpartumGoal: Adequate for dischargeOutcome: Progressing as expectedGoal: Mood stableOutcome: Progressing as expected Problem: Breast-feeding - IneffectiveGoal: Effective breast-feedingOutcome: Progressing as expected 31277-6Jwmg of care raeeYH8783-69-47Q57:07:01Plan of care noteTXT1.2.840.973976.1.13.104.2.7.2.598050| [id number] for patient vogk04804-3QqoaYAOCRLEKKW[address] MesmPnx[id number] JXWWRDIMDBIOXL2643-65-21L31:07:011.2.840.114 350.1.72.3.15|1.2.840.633851.1.13.104.2.7.2. [id number] [facility] 2022-10-02 21:14:20 6109-66-15I77:14:20Formatting of this no te is different from the original.Name/ MRN / Age / Gender:Yanet Forte, [id number] year old female BMI:Estimated body mass index is 27.29 kg/m? as calculated from the following: Height as of this encounter: 1.651 m (5' 5"). Weight as of this encounter: 74.4 kg (164 lb). Allergies:Tramadol Last Vitals:BP Readings from Last 1 Encounters: 10/02/22 118/74 Pulse Readings from Last 1 Encounters: 10/02/22 98 SpO2 Readings from Last 1 Encounters: 10/02/22 99% Date of Surgery: 10/02/2022Surgeon: * No surgeons listed *Procedure: CENTRAL NEURAXIAL BLOCKOR Location: [facility] OUT OF OR - OR LOCATIONAnesthesia Preop Eval (physical exam) Anesthesia Preop: Chart Review and Opfd-wh-ZfnfEOJA Risk Factors: femaleAnesthesia HistoryAnesthesia History Negative(-) Hx of anesthetic complicationsPrevious Anesthetics/AirwaysCardiovascularNegative Cardiac ROSComments: BP Readings from Last 3 Encounters:10/02/22 : 118/ : 111/ : 115/70 PulmonaryNegative Pulmonary ROS Neuro/MusculoskeletalNegative Neuro/Musculosketal ROS(-) Spinal Cord injury(-) Positioning limitations GI/HepaticNegative GI/Hepatic ROSComments: No results found for: "ALB", "BILIT", "ALT", "AST", "ALKPHOS" HematologyNegative Hematology ROSComments: WBC (10*3/?L) Date Value 10/02/2022 9.61 HGB (g/dL) Date Value 10/02/2022 9.8 (L) PLT (10*3/?L) Date Value 10/02/2022 204 No results found for: "PTINR"No results found for: "APTTMNNM"No results found for: "APTTPAT"(+) Patient accepts blood transfusion RenalNegative Renal ROSComments: No results found for: "CREAT"No results found for: "K"No results found for: "NA" SkinNegative Skin ROS Endo/Other Negative Endo/Other ROSComments: No results found for: "VCEUVJT6I"No results found for: "HGBA1C" Other OB/GYNComments: 22 year old female at 37w2d requesting central neuraxial anesthesia Yanet Forte is a 22 year old at 37w2d by d/u(18) who presents for decreased movement.?IOL- Denies ctx, vb, reports some leakage of fluid, reports decreased movement- SVE: 3 / 50 % / -2 - Contractions (number / 10 minute): 1- Plan: Proceed with IOL with pitocin titration?MPDPS- No surgical hx- 164 lbs- Patient counseled and still desires BTL, see separate counseling note- Consents signed 07/16/22?Low lying placenta (resolved)-?Placenta posterior fundal and low lying @ 28w0d, resolved on all future scans- Most recent MFM US on 09/19 showing fundal placenta without previa- Hx of placenta previa in prior , resolved, ?FGR (resolved)- EFW 8%ile at 32w3d, normal dopplers- WYATT/dopplers and biweekly NSTs all reassuring-?EFW: 2298?g, 16%tile?AC 18%ile MFM Scan 09/19, resolved FGR?Abnormal Pap- ASCUS pap on 04/30/22- Needs colposcopy PP?Antepartum course reviewed- 1 h?106, sero?negative, Rimmune, VZVimmune, HPV?not immune,?AB positive/IAT?negative, GBS?negative, Pap?ASCUS 04/30/22- H/H, plt:?10.3?/ 32.0,?236?on 09/23/22- PP control plan:?BTL-?Nicolle RMCHP?Fetus- Presentation on admission: cephalic - Fundal placenta - EFW: 3067 g, 48%tile, WYATT 8.3 cm on BSUS by R1- FHT reactive and reassuring- Normal anatomy scan PediatricPediatric N/A NeonatalNeonatal N/A Preoperative Medication InstructionsContinue taking all prescribed medications except:FRANKLIN inhibitors, ARBs, diuretics, all oral diabetes medicationsAnticoagulant Therapy: Defer to surgeonsInsulin: Take 1/2 dose the night prior to surgery. Hold on DOS. Phentermine: Alert [facility] anesthesiologistSGLT2 Inhibitors: "gliflozins" to be held for 3 days prior to elective surgeries MAC Cases: Continue taking FRANKLIN inhibitors and ARBs ASA ClassificationASA: 2 Current Medications:No outpatient medications have been marked as taking for the 10/02/22 encounter (Hospital Encounter). Previous Surgeries: No past surgical history on file.Anesthesia Physical ExamGeneralno apparent distress and alert and oriented x 3 Neuro/Psychneurological Nonfocal Dentalno notable dental hx Abdominal GI exam normal (+) abdomen soft, benign and gravid Airway Mallampati score:IIITM distance:> 5 cmNeck ROM: fullMouth opening:small, normal Extremity Normal extremity Pulmonarypulmonary exam normal and bilateral clear to auscultation Other Cardiovascularcardiovascular exam normalRhythm:RegularRate: Normal Anesthesia Plan ASA Status: 2 Plan discussed during pre-op evaluation: General, Epidural, Spinal and CSEAnesthetic plan on DOS: EpiduralAnesthesia plan discussed with: patient or representativePost-Operative Analgesia: routine analgesia & antiemeticsRecovery Plan: PACU and LDRAdditional comments: 45696-5Pvvfwewyaeatbo Preoperative evaluation and management wieiFX0159-58-16Y76:15:16Anesthesiology Preoperative evaluation and management noteTXT1.2.840.979127.1.13.104.2.7.2.599833| [id number] for patient rxmb33290-9Rdewexhv operation gsakVOMS-KVHFTWLQFCFTDJAA-CEVWEGFTMLBMYYJGCN[address] [id number]. FRANCIS HOSPITALUJKXPVTFNTHOWL6375-37-40I94:15:161.2.840.114 350.1.72.3.15|1.2.840.428209.1.13.104.2.7.2. [id number] AN-ANESTHESIOLOGY [facility] 2022-10-02 19:47:41 6937-51-62I56:47:41Formatting of this no te might be different from the original.Problem: Intrapartum process (including labor pain)Goal: Absence of or reduction of complications of laborOutcome: ResolvedGoal: Able to cope with painOutcome: ResolvedGoal: Adequate to move to next level of careOutcome: ResolvedGoal: Reduction in pain sensationOutcome: Resolved Problem: Falls, Risk ofGoal: Absence of fallsOutcome: Resolved 25508-0Aioz of care pqxlNK5944-99-43G31:47:47Plan of care noteTXT1.2.840.490729.1.13.104.2.7.2.043074| [id number] for patient eyyw56656-9AgrmCF688540873Ewhha Marie M Magno RN[address] [id number]. FRANCIS HOSPITALZWVWIRTJKIQZKB3319-36-85T01:47:471.2.840.114 350.1.72.3.15|1.2.840.914433.1.13.104.2.7.2. [id number] Carolyn Snyder RN [facility] 2022-10-02 13:25:39 9865-09-34D08:25:39Formatting of this no te might be different from the original.See careplan 79376-2Lkss of care lyqhYB2586-05-14S29:26:19Plan of care noteTXT1.2.840.742245.1.13.104.2.7.2.262107| [id number] for patient qsjx30412-1WsybZHPGNTRCVC[address] Dl[id number] OKTLQDXHYGTOWQ8970-92-64C26:26:191.2.840.114 350.1.72.3.15|1.2.840.662742.1.13.104.2.7.2. [id number] [facility] 2022-10-01 19:48:24 4026-41-52O47:48:24Formatting of this no te might be different from the original.Pt 37 weeks with contractions approx 6-7 mins apart per patient. No fluids or discharge. Wt: 165.7 lbs. Report called to Frannie in L&D 22802-1Tesiahmmx department Triage dygzQE1209-02-99Y19:49:10Emergen department Triage noteTXT1.2.840.039593.1.13.104.2.7.2.100463| [id number] for patient wycl46820-5Pcrwmclal department [id number] A Zach [id number] QLSHCAHVWFNHAM8662-74-25I46:49:101.2.840.114 350.1.72.3.15|1.2.840.190969.1.13.104.2.7.2. [id number] Nash Serrano [facility] 2022-09-26 08:35:21 1591-35-32W57:35:21Formatting of this no te might be different from the original.Patient stated she was discharged from [facility] yesterday and was 3 cm dilated. Stated she went for contractions, denies any vaginal leakage, has positive movements. Patient stated she is still having contractions that are 10-15 mins apart. Patient started having brown discharge this morning but stated she was told it could be from speculum exam yesterday. Advised patient to keep appt for today at 9 and will be evaluated. 65426-0Ihrenjebz encounter KqfyHM5887-16-23F68:38:44Telephone encounter NoteTXT1.2.840.196996.1.13.104.2.7.2.033463| [id number] for patient [id number] Garcia [id number] SSCXRDTXVWDIIU7428-02-05T68:38:441.2.840.114 350.1.72.3.15|1.2.840.916414.1.13.104.2.7.2. [id number] Ashleigh Chawla LVN [facility] 2022-09-26 08:32:21 5055-01-88E01:32:21Formatting of this no te might be different from the original.Pt was in hospital last night and woke up with bloody discharge today. 80117-1Zcjubwjjb encounter FakfAA7905-51-85I25:33:17Telephone encounter NoteTXT1.2.840.468199.1.13.104.2.7.2.115150| [id number] for patient lwjr73114-2HfqqML9959191FK [id number] LVWPVBCOIQQCRF8700-61-99C64:33:171.2.840.114 350.1.72.3.15|1.2.840.889528.1.13.104.2.7.2. [id number] [facility] 2022-09-25 16:23:00 8865-54-39X62:23:00Formatting of this no te might be different from the original.Regardinwks , contractions x 2hours----- Message from Kaylee Forrester sent at 09/25/2022 4:23 PM CDT -----Yanet Forte is a 22 year old female 44157-6Drbhcbyrb encounter FvyaUU4359-64-62Y64:23:39Telephone encounter NoteTXT1.2.840.563596.1.13.104.2.7.2.219999| [id number] for patient tlev11608-4GeaqFS568881176Vsjqt G Stenstadvold RN[id number] RSTVSSEVVVQWHB1538-47-74M15:23:391.2.840.114 350.1.72.3.15|1.2.840.052049.1.13.104.2.7.2. [id number] Chelsey Peoples RN [facility] 2022-09-25 16:23:00 6061-94-58Z42:23:00Formatting of this no te might be different from the original. Triage AssessmentLast Clinic Visit: 09/23/22 PNV Primary Symptom: Contractions about every 15 - 20 minutes , regularOnset / Duration: last night were irregular, 2 hours regular Location / Description: lower abdomen and lower back Pain / Severity: 3/10Associated Symptoms: Diarrhea today Fever / Method: None Hydration: 3 bottles of water (16 ounces), last void 4 minutes ago, no dysuria Treatment so far: Position change and bath, no change Effect on ADL's: No change in activity Gestational Weeks: 36 w 2 day Rupture Membranes: NoneBleeding / Spotting / Pads per hour: None Movement: Last moved about 10 minutes ago Para / : G8 P 2 EDC: re-existing condition / Immunocompromised: Anemia Reason for Disposition [1] Contractions > 10 minutes apart AND [2] persist > 24 hours AND [3] no improvement using CARE ADVICEProtocols used: - Labor - Scmhwus-WLXYU-CMJgccbqn calling concerned of regular contractions x 2 hours radiating to lower back. Positive movement, denies vaginal bleeding or leaking fluid. Advised to present to L&D for evaluation related to multiparity.Chelsey Peoples RNCHRISTUS St. [facility] Nurse 08878-9Cfdtigtfe encounter OlxsSL0072-95-29M61:37:25Telephone encounter NoteTXT1.2.840.236243.1.13.104.2.7.2.680433| [id number] for patient sirm92935-8WpxlYGOREZIBLZ[address] XdoyGdomhbopjTgqvlabujHEQA7473931758DHSANXUS TYLQAPDTLODHJI2658-54-84V00:37:251.2.840.114 350.1.72.3.15|1.2.840.065844.1.13.104.2.7.2. [id number] [facility] 2022-09-25 13:01:18 5114-31-98K24:01:18Formatting of this no te might be different from the original.Patient informed of results and new orders, verbalized understanding. 79815-0Ndscixqmv encounter CxttMV9379-85-22S15:01:38Telephone encounter NoteTXT1.2.840.920500.1.13.104.2.7.2.037335| [id number] for patient rnap98873-5FbrgTG595329120Baoucirk Denton [id number] CSPRPUSLBYGBSJ1368-73-89H13:01:381.2.840.114 350.1.72.3.15|1.2.840.718351.1.13.104.2.7.2. [id number] Ashleigh Chawla LVN [facility] 2022-09-25 12:45:15 3939-42-17L66:45:15Formatting of this no te might be different from the original.Please notify the patient she is anemic iron and vitamin c have been sent to her pharmacy on file. She should continue taking her pnv.LISE Canchola 09/25/2022 12:45 PM 12018-0Imxrdrhza encounter CirkHD0152-03-50B71:46:10Telephone encounter NoteTXT1.2.840.969398.1.13.104.2.7.2.057219| [id number] for patient pjgl91129-5KataBIVILFVEJZ[id number] OTJKCDWTDDMKPO9846-97-89H47:46:101.2.840.114 350.1.72.3.15|1.2.840.236305.1.13.104.2.7.2. [id number] [facility] 2022-09-09 09:45:00 3674-12-80I29:45:00 Addended by: MAHNAZ BLAKE on: 09/09/2022 11:41 AM Modules accepted: Orders 09861-6Bsvzgeec JovsbbrlWP7811-98-55P57:41:07Addendum DocumentTXT1.2.840.653435.1.13.104.2.7.2.727 879|[id number] for patient cxqs74763-9OjvfIYXWCOBWMJ[id number]. FRANCIS HOSPITALDZAAAJTAQWNFBF2382-97-68A33:41:071.2.840.114 350.1.72.3.15|1.2.840.935679.1.13.104.2.7.2. [id number] [facility] 2022-09-01 16:07:29 6437-18-20G31:07:29Formatting of this no te might be different from the original.Called pt, notified of usg results and poc to continue twice weekly NSTs. Pt verbalized understanding. Lorena Saenz RN 09/01/22 4:08 PM 44372-9Hvestibyu encounter XvecGK6879-35-77L46:09:01Telephone encounter NoteTXT1.2.840.024924.1.13.104.2.7.2.182255| [id number] for patient [id number]. FRANCIS HOSPITALISEROEVWVXUUKH1549-83-34N53:09:011.2.840.114 350.1.72.3.15|1.2.840.337062.1.13.104.2.7.2. [id number] [facility] 2022-09-01 16:02:52 2123-40-86U76:02:52Formatting of this no te might be different from the original.Please notify the patient her last usg is wnl, no changes in anatomy from her anatomy scan, estimated weight is 8%, so baby is still IUGR, she will continue getting her ultrasound and 2x weekly LISE Lovell 09/01/2022 4:04 PM 15245-6Pdulshsas encounter LgwzVC1151-67-40E54:04:38Telephone encounter NoteTXT1.2.840.035894.1.13.104.2.7.2.022322| [id number] for patient [address] Ryuf[id number] HUCBENEQZCBELG6289-85-50Y31:04:381.2.840.114 350.1.72.3.15|1.2.840.942088.1.13.104.2.7.2. [id number] [facility] 2022-09-01 10:29:23 5550-56-40Y92:29:23Formatting of this no te might be different from the original.Yanet Forte is a 22 year old femalePt states she was told to call clinic on Thursday-today for her results.Pt. Contact # [phone] (home) 52957-2Alqoncamm encounter EgdaYV6031-91-89R19:31:11Telephone encounter NoteTXT1.2.840.217692.1.13.104.2.7.2.266412| [id number] for patient scrs551759506Bztmgcmkw L [address] MqtqJmee[id number] UCHDKULMIUSRYN6708-52-08V14:31:111.2.840.114 350.1.72.3.15|1.2.840.985756.1.13.104.2.7.2. [id number] Jose Franks [facility] 2018-06-21 20:48:00 RPfugejlgre41181946QuotfuML6hPi6BdOEiInj akQa HbZ778VIjXAukTRWHPa0leT1hu4l5tXflaWkIFX5256- 05-13T20:48:00 [facility] ([facility]OR A [facility]ITALEMERGENCY PROVIDER REPORTREPORT#:[id number] REPORT STATUS: SignedDATE:06/21/18 TIME: 2047 PATIENT: YANET FORTE UNIT #: [id number]#: [id number] ROOM/BED:AGE: 18 SEX: F PCP PHYS: No Primary or Family PhysicianSERVICE AUTHOR: Lexis Stanley MD * ALL edits or amendments must be made on the electronic/computer document * HPI-Ear Pain/Problem/FB GeneralConfirmed Patient YesPatient Type New patientInitial Greet Date/Time 06/21/182032 PresentationChief Complaint Ear problem L, PainHx Obtained From PatientOnset Occurred Days ago (4)Symptom Duration Waxes and wanesProgression since Onset Waxes and wanesQuality PainfulSeverity: Onset MildSeverity: Current MildAssociated Other Pt denies other symptomsExacerbated by NothingRelieved by Nothing Free Text HPI NotesFree Text HPI Kjywk27J w/ no significant PMHX presents to the ED w/ c/o left ear pain, onset 4 daysPTA. Pt reports that she has experienced enlarged lymph nodes of the lateral aspect of her neck for 10 days. Pt does not report of any other sxs at this time. Pt reports that she is allergic to amoxicillin. Portions of this section were scribed by Marquis Perfecto on 06/21/18 at 2120 Review of Systems ROS StatementsAll systems rev neg except as marked. Focused Review of SystemsConstitutionalDenies: Chills, Fever, Lethargy. Ears/Nose/ThroatReports: Earache L. Denies: Ear drainage L. Additional Review of SystemsEyesDenies: Blurred bilat, Discharge bilat. RespiratoryDenies: Shortness of breath, Wheezing. CardiovascularDenies: Chest pain, Palpitations. GIDenies: Abdominal pain, Nausea, Vomiting. FemaleDenies: Dysuria, Flank pain. MusculoskeletalDenies: Back pain, Lumbar pain. SkinDenies: Abrasion, Abscess. Allergy/ImmunDenies: Rhinorrhea, Sneezing. Portions of this section were scribed by Marquis Perfecto on 06/21/18 at 2104 Past Medical History - AdultStated Complaint POSSIBLE EAR INFECTIONAllergiesCoded Allergies:penicillin G (HIVES 06/21/18) Home MedicationsReported MedicationsNo Known Home Medications Review of Nursing Notes Rev avail, and agreePt reports no significant: Past medical historySmoking status for patients 13 years old or older: Current every day smoker Portions of this section were scribed by Marquis Perfecto on 06/21/18 at 2048 Physical Exam Vital SignsVital SignsFirst Documented: Result Date Time Pulse Ox 99 06/21 2028 B/P 114/73 06/21 2028 B/P Mean 86 06/21 2028 O2 Delivery Room air 06/21 2028 Temp 98.3 06/21 2028 Pulse 93 06/21 2028 Resp 16 06/21 2028 Last Documented: Result Date Time Pulse Ox 99 06/21 2028 B/P 114/73 06/21 2028 B/P Mean 86 06/21 2028 O2 Delivery Room air 06/21 2028 Temp 98.3 06/21 2028 Pulse 93 06/21 2028 Resp 16 06/21 2028 Review of Vital Signs Reviewed Focused PEGeneral/Const General/Const Awake, Alert, No acute distress, Cooperative, Not toxic appearingMS Head Head Atraumatic, NormocephalicEars/Nose/Throat Text/Dict Notesear lob ewith erythema, edema and warmth MS Neck Neck Atraumatic, Supple, Full range of motion, No swelling, Non-tenderResp/Chest Respiratory/Chest Atraumatic, Breath sounds NL, Breath sounds = bilat, No respiratory distressCardiovascular Cardiovascular Heart rate NL, Regular rhythm, Heart sounds NLSkin Skin Warm, Dry, IntactNeurologic Neurologic Oriented X3, Speech NL, No motor deficits, No sensory deficits, CNII - XII intact, Memory NL, Gait NL Additional PEEyes Eyes Atraumatic, PERRL, EOMI Portions of this section were scribed by Marquis Perfecto on 06/21/18 at 0 Re-Evaluation MDM ED CourseMedication(s) OrderedMedication(s) Ordered:Central Nervous System Agents Sig/Niles Start time Last Medication Dose Route Stop Time Status Admin Ibuprofen 800 MG X1ED STA 06/22 2115 DC PO 06/21 2116 Portions of this section were scribed by Marquis Perfecto on 06/21/18 at 2119 Patient Discharge Departure Vital Signs/ConditionVital SignsFirst Documented: Result Date Time Pulse Ox 99 06/21 2028 B/P 114/73 06/21 2028 B/P Mean 86 06/21 2028 O2 Delivery Room air 06/21 2028 Temp 98.3 06/21 2028 Pulse 93 06/21 2028 Resp 16 06/21 2028 Last Documented: Result Date Time Pulse Ox 99 06/21 2028 B/P 114/73 06/21 2028 B/P Mean 86 06/21 2028 O2 Delivery Room air 06/21 2028 Temp 98.3 06/21 2028 Pulse 93 06/21 2028 Resp 16 06/21 2028 All vital signs available at the time of this entry have been reviewed. Condition Stable Clinical ImpressionClinical ImpressionPrimary Impression: Cellulitis of ear Disposition DecisionDischarge )( Discharged to Home Yes )( Time 2103 )( Date 06/21/18 Discharge/Care PlanCounseled Regarding Diagnosis, Prescriptions, Need for follow-up, When to returnto EDPrescriptionsDoxycyclinePrescriptions Reviewed Risks, Benefits, Alternative treatment Discharge NoteI have spoken with the patient and/or caregivers. I have explained the patient'scondition, diagnoses and treatment plan based on the information available to meat this time. I have answered the patient's and/or caregiver's questions and addressed any concerns. The patient and/or caregivers have as good an understanding of the patient's diagnosis, condition and treatment plan as can beexpected at this point. The vital signs have been stable. The patient's condition is stable and appropriate for discharge from the emergency department. The patient will pursue further outpatient evaluation with the primary care physician or other designated or consulting physician as outlined in the discharge instructions. The patient and/or caregivers are agreeable to this planof care and follow-up instructions have been explained in detail. The patient and/or caregivers have received these instructions in written format and have expressed an understanding of the discharge instructions. The patient and/or caregivers are aware that any significant change in condition or worsening of symptoms should prompt an immediate return to this or the closest emergency department or a call to 911. Supervising Physician Note Provider Scribed StatementI personally performed the services described in this documentation and reviewedthe documentation that was dictated to the scribe(s) in my presence, and it accurately records my words and actions. Lexis Stanley, 06/22/18 Portions of this section were scribed by Marquis Perfecto on 06/21/18 at 2104 at 0101RPT #:[id number] OF REPORTCedar Park [facility] department xivlxu8406-80-52Y29:48:00D.[id number] AVAvailable for patient escgSVYHHXAJLHBLKN2598-85-08O68:02:11 [facility] ED
[2023-07-31] MEDS ORDERED: KETOROLAC 30 MG/ML INJ ONE (09:46)
[2023-07-31] MEDS ORDERED: NA CHLORIDE 0.9% 1,000 ML ONE (09:47)
[2023-07-31 10:03] LABS: Absolute Lymphocytes (CBC) 0.5 K/uL (0.7-4.9); Absolute Monocytes 0.4 K/uL (0.1-1.3); Absolute Neutrophil 1.4 K/uL (1.8-8.0); Basophils % 0.6 % (0-1.3); Eosinophils % 1.2 % (0-4.4); Hemoglobin 14.2 g/dL (12.0-15.0); Lymphocytes % 20.8 % (15.3-44.8); MCH 27.1 pg (27.0-35.0); MCV 82.2 fL (80-100); MPV 7.3 fL (7.6-11.3); Monocytes % 18.3 % (3.3-12.3); Neutrophils % 59.1 % (41.7-73.7); Nucleated Red Blood Cells % 0.1 % (0-0); Platelets 201 thou/uL (152-406); RBC Red Blood Cell Count 5.23 M/uL (3.86-4.86); Red Cell Distribution Width 12.5 % (12.1-15.2)
[2023-07-31 10:04] LABS: Specific Gravity 1.008 (1.005-1.030)
[2023-07-31 10:06] LABS: Specific Gravity 1.008 (1.005-1.030); Sqamous Epithelial <5 /HPF (None Seen); Urine Bacteria None Seen /HPF (<20); Urine Bilirubin NEGATIVE (Negative); Urine Blood Negative (Negative); Urine Clarity Clear (Clear); Urine Color Light-Yellow (Yellow); Urine Culture Reflex Order NOT NEEDED; Urine Glucose NEGATIVE (Negative); Urine Ketones NEGATIVE (Negative); Urine Micro Reflex YN NO BILL MICROSCOPIC; Urine Nitrite NEGATIVE (Negative); Urine Protein NEGATIVE (Negative); Urine RBC None Seen /HPF (None Seen); Urine Urobilinogen Normal (Normal); Urine WBC <5 /HPF (<5)
[2023-07-31 10:23] LABS: Anion Gap 6.6 mEq/L (5.0-15.0); BUN Blood Urea Nitrogen 10 mg/dL (7-18); Bicarbonate 28 mEq/L (21-32); Glomerular Filtration Rate 105 ml/min (=/>90); Glucose Level 82 mg/dL (74-106); Potassium 3.6 mEq/L (3.5-5.1); Sodium Level 135 mEq/L (136-145)
[2023-07-31 10:25] LABS: Troponin High Sensitivity < 3.0 pg/mL (<58.9)
[2023-07-31 10:31] LABS: Blood Morphology Comment NOT SEEN (NOT SEEN); Platelet Estimate ADEQ; White Blood Cell Scan OK (OK)
--- NOTE | 2023-07-31 10:44 | ER ---
Nurse's Notes [facility] Name: Yanet Forte Age: 23 yrs Sex: Female : 2000 Arrival Date: 07/31/2023 Time: 09:13 Bed 19 Private MD: Diagnosis: Orthostatic hypotension Presentation: 07/30 09:41 Chief complaint: Intermittent dizziness and headaches x 6 months, worse over the last hb 2-3 weeks. Coronavirus screen: At this time, the client does not indicate any symptoms associated with coronavirus-19. Ebola Screen: No symptoms or risks identified at this time. Initial Sepsis Screen: Does the patient meet any 2 criteria? No. Patient's initial sepsis screen is negative. Does the patient have a suspected source of infection? No. Patient's initial sepsis screen is negative. Risk Assessment: Do you want to hurt yourself or someone else? Patient reports no desire to harm self or others. Onset of symptoms was February 2023. 09:41 Method Of Arrival: Ambulatory hb 09:41 Acuity: JAYLON 3 hb Triage Assessment: 09:42 General: Appears in no apparent distress. Behavior is calm, cooperative. Pain: Pain hb currently is 3 out of 10 on a pain scale. Neuro: Level of Consciousness is awake, alert, obeys commands, Oriented to person, place, time, situation, Reports diplopia, headache. Cardiovascular: Patient's skin is warm and dry. Rhythm is tachy. Respiratory: Respiratory effort is even, unlabored, Respiratory pattern is regular, symmetrical. GI: Reports nausea. Historical: - Allergies: 09:42 Pitocin; hb - Home Meds: 09:42 None [Active]; hb - PMHx: 09:42 None; hb - PSHx: 09:42 None; hb - Immunization history:: Adult Immunizations up to date. - Infectious Disease History:: Denies. - Social history:: Smoking status: Reported history of juuling and/or vaping. Screenin:02 [facility] ED Fall Risk Assessment (Adult) History of falling in the last 3 months, nj1 including since admission No falls in past 3 months (0 pts) Confusion or Disorientation No (0 pts) Intoxicated or Sedated No (0 pts) Impaired Gait No (0 pts) Mobility Assist Device Used No (0 pt) Altered Elimination No (0 pt) Score/Fall Risk Level 0 - 2 = Low Risk Oriented to surroundings, Maintained a safe environment, Hourly rounding (assess needs \T\ fall precautionary measures) done. Abuse screen: Denies threats or abuse. Denies injuries from another. Nutritional screening: No deficits noted. Tuberculosis screening: No symptoms or risk factors identified. Assessment: 10:00 General: Appears in no apparent distress. comfortable, Behavior is calm, cooperative, nj appropriate for age. Pain: Complains of pain in head Pain currently is 2 out of 10 on a pain scale. Neuro: Level of Consciousness is awake, alert, obeys commands, Oriented to person, place, time, situation. Neuro: Moves all extremities. Gait is steady, Speech is normal, Reports headache Dizziness upon standing. Cardiovascular: Patient's skin is warm and dry. Respiratory: Airway is patent Respiratory effort is even, unlabored. Vital Signs: 09:41 BP 123 / 97; Pulse 108; Resp 18; Temp 97.3(TE); Pulse Ox 99% on R/A; Weight 72.57 kg; hb Height 5 ft. 5 in. ; Pain 3/10; 10:00 BP 111 / 83; Pulse 93; Resp 16; Pulse Ox 99% ; Pain 2/10; nj1 11:00 BP 123 / 88; Pulse 87; Resp 15; Temp 97.3; Pulse Ox 99% ; jl7 09:41 Body Mass Index 26.63 (72.57 kg, 165.1 cm) hb 09:41 Pain Scale: Adult hb 10:00 Pain Scale: Adult nj1 ED Course: 09:19 Patient arrived in ED. mg5 09:21 Larry Burroughs MD is Attending Physician. ec2 09:42 Triage completed. hb 09:43 Arm band placed on. hb 09:44 Arleen Costello, NEHEMIAH is Primary Nurse. nj1 09:58 Initial lab(s) drawn, by ut, sent to lab. Urine collected: clean catch specimen, clear. zm Inserted saline lock: 20 gauge in right antecubital area, using aseptic technique. Blood collected. 09:58 Basic Metabolic Panel Sent. zm 09:58 CBC with Diff Sent. zm 09:58 Troponin HS Sent. zm 09:58 Test, Urine Sent. zm 09:58 UAM Sent. zm 10:03 Patient has correct armband on for positive identification. Bed in low position. Call nj1 light in reach. Provided Education on: call light, fall precautions. 10:39 EKG done, by ED staff. aw1 11:15 No provider procedures requiring assistance completed. IV discontinued, intact, jl7 bleeding controlled, No redness/swelling at site. Pressure dressing applied. Administered Medications: 10:00 Drug: NS 0.9% IV 1000 ml IV at 1 bolus Per protocol; 1000 mL bolus Route: IV; Rate: 1 nj1 bolus; Site: right antecubital; 11:00 Follow up: IV Status: Completed infusion; IV Intake: 1000ml jl7 10:00 Drug: Ketorolac IVP 15 mg IVP once Route: IVP; Site: right antecubital; nj1 11:20 Follow up: Response: No adverse reaction jl7 Medication: 11:00 VIS not applicable for this client. jl7 Intake: 11:00 IV: 1000ml; Total: 1000ml. jl7 Outcome: 10:43 Discharge ordered by MD. ec2 11:15 Discharged to home ambulatory, jl7 11:15 Condition: stable 11:15 Discharge instructions given to patient, Instructed on discharge instructions, follow up and referral plans. Demonstrated understanding of instructions, follow-up care, 11:21 Patient left the ED. jl7 Signatures: Laureen Rodriguez RN RN Danielle Lawton RN RN jl7 Lyndsey Rodriguez Norma, NEHEMIAH RN nj1 Kathy Davila aw Madina Padilla 5 Larry Burroughs MD MD ec2 Corrections: (The following items were deleted from the chart) 09:42 09:42 Allergies: No Known Allergies; hb hb
--- NOTE | 2023-07-31 10:44 | EDPHYS ---
Physician Documentation [facility] Name: Yanet Forte Age: 23 yrs Sex: Female : 2000 Arrival Date: 07/31/2023 Time: 09:13 Bed 19 Private MD: ED Physician Larry Burroughs HPI: 07/30 09:38 This 23 yrs old Female presents to ER via Unassigned with complaints of ec2 Dizziness, Nausea. 09:38 Patient arrives today for evaluation of approximately 6 months of of lightheadedness ec2 and dizziness. Patient reports that she has been having intermittent bouts of dizziness, states that when she goes from a sitting to a standing position that she feels lightheaded like she is going to pass out. Patient denies chest pain or difficulty breathing, reports occasional bouts of nausea, also complaining of a headache which she describes as pressure behind the eyes.. Historical: - Allergies: 09:42 Pitocin; hb - Home Meds: 09:42 None [Active]; hb - PMHx: 09:42 None; hb - PSHx: 09:42 None; hb - Immunization history:: Adult Immunizations up to date. - Infectious Disease History:: Denies. - Social history:: Smoking status: Reported history of juuling and/or vaping. ROS: 09:38 Constitutional: as per hpi ec2 Exam: 09:38 Constitutional: GEN: NAD Head: atraumatic Eyes: EOMI Ears: External ears are ec2 normal. CV: regular rate LUNGS: no respiratory distress ABD: non-distended SKIN: no evidence of rashes MSK: no evidence of trauma NEURO: moves all extremities equally, cranial nerves II through XII intact, strength intact in all extremities Vital Signs: 09:41 BP 123 / 97; Pulse 108; Resp 18; Temp 97.3(TE); Pulse Ox 99% on R/A; Weight 72.57 kg; hb Height 5 ft. 5 in. ; Pain 3/10; 10:00 BP 111 / 83; Pulse 93; Resp 16; Pulse Ox 99% ; Pain 2/10; nj1 11:00 BP 123 / 88; Pulse 87; Resp 15; Temp 97.3; Pulse Ox 99% ; jl7 09:41 Body Mass Index 26.63 (72.57 kg, 165.1 cm) hb 09:41 Pain Scale: Adult hb 10:00 Pain Scale: Adult nj1 MDM: 09:21 Patient medically screened. ec2 09:38 Data reviewed: vital signs. ED course: Patient arrives today for evaluation of ec2 dizziness as well as nausea. Examination remarkable for neuro intact individuals otherwise in no acute distress with a reassuring examination. Will obtain lab work, EKG, give the patient crystalloid as well as Toradol for the patient's headache. Differential diagnosis includes orthostatic hypotension, dehydration, anemia, electrolyte disturbances and arrhythmia.. 10:31 ED course: Metabolic profile with proper electrolytes and renal function, CBC shows ec2 slight leukopenia with WBC of 2.4. No evidence of anemia. Troponin is within normal ranges. Urine is noninfectious, negative for . . 10:41 ED course: EKG obtained, dependently reviewed and interpreted by me, shows normal sinus ec2 rhythm, rate of 75, no acute ST segment elevations, intervals are nonconcerning. . 07/30 09:38 Order name: Basic Metabolic Panel; Complete Time: 10:30 ec2 07/30 09:38 Order name: CBC with Diff; Complete Time: 10:33 ec2 07/30 09:38 Order name: Troponin HS; Complete Time: 10:30 ec2 07/30 09:38 Order name: UAM; Complete Time: 10:30 ec2 07/30 09:38 Order name: Test, Urine; Complete Time: 10:30 ec2 07/30 10:07 Order name: CBC Smear Scan; Complete Time: 10:33 EDMS 07/30 09:38 Order name: EKG; Complete Time: 09:38 ec2 07/30 09:38 Order name: Cardiac monitoring; Complete Time: 10:28 ec2 07/30 09:38 Order name: EKG - Nurse/Tech; Complete Time: 10:39 ec2 07/30 09:38 Order name: IV Saline Lock; Complete Time: 09:58 ec2 07/30 09:38 Order name: Labs collected and sent; Complete Time: 09:58 ec2 07/30 09:38 Order name: O2 Per Protocol; Complete Time: 09:44 ec2 07/30 09:38 Order name: O2 Sat Monitoring; Complete Time: 09:44 ec2 Administered Medications: 10:00 Drug: NS 0.9% IV 1000 ml IV at 1 bolus Per protocol; 1000 mL bolus Route: IV; Rate: 1 nj1 bolus; Site: right antecubital; 11:00 Follow up: IV Status: Completed infusion; IV Intake: 1000ml jl7 10:00 Drug: Ketorolac IVP 15 mg IVP once Route: IVP; Site: right antecubital; nj1 11:20 Follow up: Response: No adverse reaction jl7 Disposition Summary: 07/31/23 10:43 Discharge Ordered Notes: Location: Home ec2 Condition: Stable ec2 Diagnosis - Orthostatic hypotension ec2 Followup: ec2 - With: Private Physician - When: - Reason: Re-evaluation by your physician Discharge Instructions: - Discharge Summary Sheet ec2 - Orthostatic Hypotension ec2 Forms: - Family Work Release ec2 - Medication Reconciliation Form ec2 - Antibiotic Education ec2 - Prescription Opioid Use ec2 - Patient Portal Instructions ec2 - Leadership Thank You Letter ec2 Signatures: Dispatcher [employer] Laureen Beyer RN RN hb Arleen Costello RN RN nj1 Larry Burroughs MD MD ec2 Danielle Lawton RN jl7 Corrections: (The following items were deleted from the chart) 09:42 09:42 Allergies: No Known Allergies; hb hb
[2023-07-31 11:29] VITALS: BP 123/88; TEMP 97.3; O2SAT 99
--- NOTE | 2023-07-31 12:32 | EKG ---
Test Date: 2023-07-31 Test Time: 10:36:08 Sales Agent Protective Service: WHITNEY MEASUREMENT RESULTS: Intervals: Rate: 75 PA: 162 QRSD: 98 QT: 372 QTc: 415 [place]: P: 56 PA: 162 QRS: 92 T: 22 INTERPRETIVE STATEMENTS: Normal sinus rhythm Normal ECG No previous ECG available for comparison Electronically Signed On 07-31-23 12:31:31 CDT by Maurice Escobar
== END 2023-07-31 11:21 | disposition home or self-care (01) ==
LOC: ER 09:13
DX: I95.1 Orthostatic hypotension (principal); Z88.8 Allergy status to other drugs, medicaments and biological substances; F17.290 Nicotine dependence, other tobacco product, uncomplicated
CPT/HCPCS: 96361; 93005; 85025; 81001; 80048; 36415; 81025; 84484; 96374; 99284; J7030

== ENCOUNTER 2024-04-21 09:51 | Emergency (ER) | payer OTHER ==
--- OUTSIDE RECORDS SUMMARY | 2024-04-21 09:57 | XMS REPORT | Continuity of Care Document ---
Author Name Unknown Address [address] [facility] [address] [place] [address] [facility] [place] Address [address] [facility] [address] [place] [address] Care Team Providers Care Life Manager Name Role Phone GENABRENGWEN MAHNAZ Bergman Primary Care Physician Unav GER Willson Attending Clinician UnavailYUMIKO Saucedo Attending Clinician UnavailMargarita Bennett MD Attending Clinician [phone] MARGARITA FLOREZ Attending Clinician Unavailable Ger Joshi MD Attending Clinician + [phone] AUGUSTINA MEJIAS Attending Clinician Unavailable AUGUSTINA MEJIAS Attending Clinician Unavailable ZAHIDA NESS Attending Clinician Unavailable John Zahida VELARDE Attending Clinician [phone] Pgy3 Attending Clinician Unavailable TIMOTHY LAIRD Attending Clinician Unavailable [facility] Resident Attending Clinician Timothy Jamison MD Attending Clinician [phone] Pgy1 Attending Clinician Unavailable Pcp, Patient Does Not Have A Attending Clinician Yumiko López CNM Attending Clinician AKINMAHNAZ SUMNER Attending Clinician Unavail able Akinsipe WHCNP, Mahnaz C Attending Clinician + Doctor Unassigned, [place] Attending Clinician U BRIDGET Batista Attending Clinician Unavailable Gamaliel SANZ, Placido Finney Attending Clinician [phone] Eyad STEPHENSNixon Attending Clinician [phone], [facility] Attending Clinician Unavailable OSWALD PURCELL Attending Clinician Unavailable Oswald Purcell MD Attending Clinician [phone] ABBY RUSSELL Attending Clinician UnavailAbby Rey MD Attending Clinician [phone] Richelle CERNA, Chelsey Jamison Attending Clinician Yarely MARCIN Kerr Attending Clinician Unavailable MARCIN GUEVARA Attending Clinician Unavailable [facility] Attending Clinician Unavaila jono Guevara MD, Marcin Attending Clinician [phone] GUALBERTO BAKER Attending Clinician Unav ailGualberto Altamirano MD Attending Clinician + JESSICA DEMPSEY Attending Clinician Unav ailable Osmani SANZ, Jessica Kamara Attending Clinician + Margarita Florez MD Admitting Clinician [phone] MARGARITA FLOREZ Admitting Clinician Unavailable Gamaliel SANZ, Placido Finney Admitting Clinician + [phone] AUGUSTINA MEJIAS Admitting Clinician Unavailable Augustina Mejias MD Admitting Clinician [phone] OSWALD PURCELL Admitting Clinician Unavailable Oswald Purcell MD Admitting Clinician [phone] ABBY RUSSELL Admitting Clinician UnavailAbby Rey MD Admitting Clinician [phone] Payers Payer Name Policy Type Policy Number Effective Date Expirati on Date Source [facility] [id number] 2022 00:00:00 Problems Condition Name Condition Details Condition Category Status Onset Date Resolution Date Last Treatment Date Treating Clinician Comments Source Female sterility Female sterility Disease Active 8-27 00:00: 00 [facility] Nexplanon in place Nexplanon in place Disease Active 8 00:00: 00 [facility] Tubal ligation status Tubal ligation status Disease Active 8- 00:00: 00 [facility] Atypical squamous cells of undetermin ed significan ce (ASCUS) on Papanicola ou smear of cervix Atypical squamous cells of undetermin ed significan ce (ASCUS) on Papanicola ou smear of cervix Disease Active 4-03 00:00: 00 Overview: Formattin g of this note might be different from the original. Repeat 1 year 04/2023 [facility] history of Anxiety and depression history of Anxiety and depression Disease Active 04-30 00:00: 00 Overview: Formattin g of this note might be different from the original. Last on meds in 2016 Not on meds [facility] Marijuana use Marijuana use Disease Active 04-30 00:00: 00 Overview: Formattin g of this note might be different from the original. Reports quit 1.5 months ago [facility] Other general counseling and advice for contracept joey management Other general counseling and advice for contracept joey management Disease Resolve d 2022-02 0-06 00:00: 00 2023-09-15 00:00:00 2023-09-15 13:06:30 [facility] Anemia, Anemia, Disease Resolve d 8-26 00:00: 00 2023-09-15 00:00:00 2023-09-15 13:06:40 [facility] care and examinatio n of lactating mother care and examinatio n of lactating mother Disease Resolve d 9-14 00:00: 00 2022-11-14 00:00:00 2022-11-14 10:49:05 [facility] (spontaneo us vaginal delivery) (spontaneo us vaginal delivery) Disease Resolve d 8-25 00:00: 00 2022-10-23 00:00:00 2022-10-23 16:04:14 [facility] Single live Single live Disease Resolve d 2022-0 8-25 00:00: 00 2022-10-23 00:00:00 2022-10-23 16:04:13 [facility] 37 weeks gestation of 37 weeks gestation of Disease Resolve d 2022-0 8-24 00:00: 00 2022-10-23 00:00:00 2022-10-23 16:04:15 [facility] Decreased movement Decreased movement Disease Resolve d 2022-0 8-24 00:00: 00 2022-10-23 00:00:00 2022-10-23 15:55:48 [facility] 36 weeks gestation of 36 weeks gestation of Disease Resolve d 2022-0 8-18 00:00: 00 2022-10-23 00:00:00 2022-10-23 15:55:48 [facility] UTI (urinary tract infection) UTI (urinary tract infection) Disease Resolve d 2022-0 8-18 00:00: 00 2022-10-23 00:00:00 2022-10-23 16:04:23 [facility] Uterine contractio ns Uterine contractio ns Disease Resolve d 0 8-18 00:00: 00 2022-10-23 00:00:00 2022-10-23 15:55:48 [facility] Supervisio n of high-risk Supervisio n of high-risk Disease Resolve d 2022-0 3-22 00:00: 00 2022-10-23 00:00:00 2022-10-23 16:04:20 [facility] History of placenta previa History of placenta previa Disease Resolve d 2022-0 3-22 00:00: 00 2022-10-23 00:00:00 2022-10-23 16:04:19 [facility] Multiparit y Multiparit y Disease Resolve d 0 3-22 00:00: 00 2022-10-23 00:00:2022-10-23 16:04:16 [facility] IUGR (intrauter ine growth restrictio n) affecting care of mother IUGR (intrauter ine growth restrictio n) affecting care of mother Disease Resolve d 7 00:00: 00 2022-09-27 00:00:00 2022-09-27 12:21:28 Overview: Formattin g of this note might be different from the original. 2x weekly nst . Discontin ue surveilla nce for FGR as FGR is now resolved 09/19/22, see recent usg report [facility] Low-lying placenta Low-lying placenta Disease Resolve d 6- 00:00: 00 2022-09-27 00:00:00 2022-09-27 12:21:25 [facility] Allergies, Adverse Reactions, Alerts Allergy Name Allergy Type Status Severity Reaction(s) Onset Date Inactive Date Treating Clinician Comments Source TRAMADOL DRUG INGREDI Active Med N/V 04-30 00:00: 00 [facility] Tramadol Drug Allergy Active Nausea and/or Vomiting 04-30 00:00: 00 [facility] penicill in G DA Active U -13 00:00: 00 [facility] OXYTOCIN DRUG INGREDI Active Palpitations 02-09 00:00: 00 [facility] Oxytocin Drug Allergy Active Palpitations 02-09 00:00: 00 [facility] NO KNOWN ALLERGIE S Drug Class Active [facility] Social History Social Habit Start Date Stop Date Quantity Comments Source ASSERTION 2022-01-28 00:00:00 [facility] Alcoholic beverage intake 2023-10-20 00:00:00 2023-10-20 00:00:00 Lifetime non-drinker (finding) [facility] History of Social function 2023-10-16 00:00:00 2023-10-16 00:00:00 [facility] Alcohol intake 2022-11-14 00:00:00 2022-11-14 00:00:00 Lifetime non-drinker (finding) [facility] Education 2022-10-02 00:00:00 2022-10-02 00:00:00 21 [facility] Exposure to SARS-CoV-2 (event) 2022-06-15 00:00:00 2022-06-25 11:10:00 Not sure [facility] Tobacco use and exposure 2022-04-30 00:00:00 2022-04-30 00:00:00 Smokeless tobacco non-user [facility] Sex assigned at 2000 00:00:00 2000 00:00:00 [facility] Smoking Status Start Date Stop Date Source Tobacco smoking consumption unknown [facility] Never smoked tobacco [facility] Medications Ordered Medication Name Filled Medication Name Start Date Stop Date Current Medication? Ordering Clinician Indication Dosage Frequency Signature (SIG) Comments Components Source acetaminoph en (OFIRMEV) IV piggyback 1,000 mg 10-22 13:44: 05 10-22 14:52 :00 No 1000mg 1,000 mg, IV Piggyback, at 400 mL/hr Administer over 15 Minutes, ONCE PRN, 1 dose, Starting on Thu10/23/23 at 0844, Until Thu10/23/23 at 0952, Routine, Pain (scale 1-3), PACU, Indication : Strict NPO and unable to tolerate oral medication s, Is the patient strict NPO and unable to tolerate oral medication s? Yes [facility] proMETHazin e (PHENERGAN) 12.5 mg in NS 50 mL IV piggyback (CNR) 10-22 13:43: 28 10-23 00:08 :26 No 12.5mg 12.5 mg, IV Piggyback, at 200 mL/hr Administer over 15 Minutes, PRN, 1 dose, Starting on Thu10/23/23 at 0843, Until Thu10/23/23 at 1908, Routine, Nausea and Vomiting (N/V), PACU [facility] bupivacaine (preserv free) (SENSORCAIN E MPF) 0.25 % (2.5 mg/mL) injection 10-22 13:13: 00 10-22 13:43 :12 No PRN, Starting on Thu10/23/23 at 0813, Until Thu10/23/23 at 0843, Routine, Intra-op [facility] HYDROcodone -acetaminop hen (NORCO 5) tablet 1 tablet 10-22 12:51: 35 10-22 14:01 :00 No 1{tbl} 1 tablet, Oral, PRN, 1 dose, Starting on Thu10/23/23 at 0751, Until Thu10/23/23 at 0901, Routine, Pain (scale 7-10), DSU Recovery [facility] ibuprofen (IBU) tablet 800 mg 10-22 12:51: 31 10-23 00:08 :26 No 800mg [facility] acetaminoph en (TYLENOL) tablet 650 mg 10-22 12:51: 28 10-23 00:08 :26 No 650mg [facility] HYDROcodone -acetaminop hen 5-325 mg tablet 10-22 00:00: 00 10-30 04:59 :00 No [id number] 1{tbl} Take 1 tablet by mouth every 6 (six) hours as needed for Pain (scale 7-10) for up to 7 days. Indication s: acute pain [facility] ibuprofen 800 mg tablet 10-22 00:00: 00 10-26 04:59 :00 No [id number] 800mg Take 1 tablet by mouth in the morning and 1 tablet at noon and 1 tablet in the evening. Take with meals. Do all this for 3 days. [facility] simethicone 80 mg chewable tablet 10-22 00:00: 00 10-26 04:59 :00 No [id number] 80mg Take 1 tablet by mouth after meals and at bedtime for 3 days. [facility] etonogestre L (NEXPLANON) implant 68 mg 2022-02 0 16:45: 00 11-14 15:49 :00 No [id number] 68mg [facility] vitamin w/FA tablet 10-04 00:00: 00 Yes [id number] 1{tbl} Take 1 tablet by mouth in the morning. [facility] ferrous sulfate 325 mg (65 mg iron) tablet 10-04 00:00: 00 Yes [id number] 325mg Take 1 tablet by mouth in the morning and 1 tablet in the evening. [facility] docusate 100 mg capsule 10-04 00:00: 00 11-14 00:00 :00 No [id number] 200mg Take 2 capsules by mouth once daily as needed for Constipati on. [facility] ibuprofen 600 mg tablet 10-04 00:00: 00 11-14 00:00 :00 No [id number] 600mg Take 1 tablet by mouth every 6 (six) hours as needed (Pain). Take with food or milk. [facility] rho(D) immune globulin (RHOGAM) syringe 300 mcg 10-03 04:57: 19 Yes 300ug 300 mcg, Intramuscu lar, ONCE, For 1 dose, Conditiona l, Routine [facility] HYDROcodone -acetaminop hen (NORCO 5) 5-325 mg tablet 1 tablet 10-03 04:57: 11 Yes 1{tbl} 1 tablet, Oral, Q6HPRN, Starting on Thu10/02/22 at 2357, Until Discontinu ed, Routine, Pain (scale 7-10) [facility] ibuprofen (IBU) tablet 600 mg 10-03 04:57: 11 Yes 600mg 600 mg, Oral, Q6HPRN, Starting on Thu10/02/22 at 2357, Until Discontinu ed, Routine, Pain (scale 4-6) [facility] acetaminoph en (TYLENOL) tablet 650 mg 10-03 04:57: 11 Yes 650mg 650 mg, Oral, Q6HPRN, Starting on Thu10/02/22 at 2357, Until Discontinu ed, Routine, Pain (scale 1-3) [facility] diphenhydrA MINE (BENADRYL) tablet 25 mg 10-03 04:57: 11 Yes 25mg 25 mg, Oral, Q6HPRN, Starting on Thu10/02/22 at 2357, Until Discontinu ed, Routine, Sleep, Itching [facility] ondansetron (ZOFRAN (PF)) injection 4 mg 10-03 04:57: 11 Yes 4mg 4 mg, Slow IV Push, Q8HPRN, Starting on Thu10/02/22 at 2357, Until Discontinu ed, Routine, Nausea and Vomiting (N/V) [facility] simethicone (GAS RELIEF (SIMETHICON E)) chewable tablet 160 mg 10-03 04:57: 11 Yes 160mg 160 mg, Oral, PC+HSPRN, Starting on Thu10/02/22 at 2357, Until Discontinu ed, Routine, Gas [facility] docusate (COLACE) capsule 200 mg 10-03 04:57: 11 Yes 200mg 200 mg, Oral, QDAILYPRN, Starting on Thu10/02/22 at 2357, Until Discontinu ed, Routine, Constipati on [facility] magnesium hydroxide (MILK OF MAGNESIA) 400 mg/5 mL suspension 30 mL 10-03 04:57: 11 Yes 30mL 30 mL, Oral, QDAILYPRN, Starting on Thu10/02/22 at 2357, Until Discontinu ed, Routine, Constipati on [facility] benzocaine- menthol (DERMOPLAST ) 20-0.5 % topical spray 10-03 04:57: 11 Yes Topical, PRN, Starting on Thu10/02/22 at 2357, Until Discontinu ed, Routine, Perineum discomfort [facility] ropivacaine 0.2 % (NAROPIN (PF)) epidural infusion 10-03 01:15: 00 Yes Epidural, CONTINUOUS PRN, Starting on Thu10/02/22 at 2015, Until Discontinu ed, Routine, Intra-op [facility] lidocaine-e pinephrine (XYLOCAINE W/EPINEPHRI NE) 1.5 %-1:200,000 injection 10-03 01:15: 00 Yes Intraderma l, ONCE INTRA PROCEDURE, Starting on Latisha 10/02/22 at 2015, Until Discontinu ed, Routine, Intra-op [facility] oxytocin (PITOCIN) 30 units in NS 500 mL IV infusion 10-02 19:05: 02 10-03 04:57 :17 No 2mU/min at 2-40 mL/hr, IV Infusion, TITRATE, Starting on Latisha 10/02/22 at 1405, Until Latisha 10/02/22 at 2357, WILLIAM [facility] D5W-LR IV infusion 1,000 mL 10-02 17:11: 01 10-03 04:57 :17 No 1000mL at 1-125 mL/hr, IV Infusion, TITRATE, Starting on Latisha 10/02/22 at 1211, Until Latisha 10/02/22 at 2357, Routine [facility] metroNIDAZO LE (FLAGYL) 500 mg tablet 10-02 00:00: 00 Yes [id number] 500mg Take 1 tablet by mouth every 12 (twelve) hours. [facility] lactated ringers IV infusion 500 mL 09-27 18:30: 00 09-27 18:03 :30 No 500mL at 999 mL/hr, 500 mL, Intravenou s, ONCE, 1 dose, On 09/27/22 at 1330, Routine [facility] fluconazole (DIFLUCAN) tablet 150 mg 09-26 03:45: 00 09-26 03:08 :00 No 150mg 150 mg, Oral, ONCE, 1 dose, On Latisha 09/25/22 at 2245, WILLIAM
Re ason for Anti-Infec tive: Documented Infection< br>Documen king Infection Site: Pelvic
Duration of Therapy: Other (see Comments) [facility] lactated ringers IV infusion 500 mL 09-26 02:00: 00 09-26 03:09 :00 No 500mL at 999 mL/hr, 500 mL, Intravenou s, ONCE, 1 dose, On Latisha 09/25/22 at 2100, Routine [facility] ferrous sulfate 325 mg (65 mg iron) tablet 09-25 00:00: 00 10-04 00:00 :00 No [id number] 325mg Take 1 tablet by mouth in the morning and 1 tablet in the evening. [facility] ascorbic acid, vitamin C, 500 mg tablet 09-25 00:00: 00 10-04 00:00 :00 No [id number] 500mg Take 1 tablet by mouth in the morning and 1 tablet at noon and 1 tablet in the evening. [facility] Nitrofurant oin&Nit. Macrocryst 100 mg capsule 09-25 00:00: 00 10-04 00:00 :00 No [id number] 100mg Take 1 capsule by mouth in the morning and 1 capsule in the evening. Do all this for 7 days. [facility] multivitami n ( VITAMIN) tablet 04-30 00:00: 00 Yes [id number] 1{tbl} Take 1 tablet by mouth in the morning. [facility] multivitami n ( VITAMIN) tablet 04-30 00:00: 00 10-04 00:00 :00 No [id number] 1{tbl} Take 1 tablet by mouth in the morning. [facility] Immunizations Ordered Immunization Name Filled Immunization Name Date Status Comments Source TDAP 2022-07-31 00:00:00 Completed [facility] TDAP 2022-07-31 00:00:00 Completed [facility] TDAP 2022-07-31 00:00:00 Completed [facility] TDAP 2022-07-31 00:00:00 Completed [facility] TDAP 2022-07-31 00:00:00 Completed [facility] TDAP 2022-07-31 00:00:00 Completed [facility] TDAP 2022-07-31 00:00:00 Completed [facility] TDAP 2022-07-31 00:00:00 Completed [facility] TDAP 2022-07-31 00:00:00 Completed [facility] TDAP 2022-07-31 00:00:00 Completed [facility] TDAP 2022-07-31 00:00:00 Completed [facility] TDAP 2022-07-31 00:00:00 Completed [facility] TDAP 2022-07-31 00:00:00 Completed [facility] TDAP 2022-07-31 00:00:00 Completed [facility] TDAP 2022-07-31 00:00:00 Completed [facility] TDAP 2022-07-31 00:00:00 Completed [facility] TDAP 2022-07-31 00:00:00 Completed [facility] TDAP 2022-07-31 00:00:00 Completed [facility] TDAP 2022-07-31 00:00:00 Completed [facility] TDAP 2022-07-31 00:00:00 Completed [facility] TDAP 2022-07-31 00:00:00 Completed [facility] TDAP 2022-07-31 00:00:00 Completed [facility] TDAP 2022-07-31 00:00:00 Completed [facility] TDAP 2022-07-31 00:00:00 Completed [facility] TDAP 2022-07-31 00:00:00 Completed [facility] TDAP 2022-07-31 00:00:00 Completed [facility] TDAP 2022-07-31 00:00:00 Completed [facility] TDAP 2022-07-31 00:00:00 Completed [facility] TDAP 2022-07-31 00:00:00 Completed [facility] TDAP 2022-07-31 00:00:00 Completed [facility] TDAP 2022-07-31 00:00:00 Completed [facility] TDAP 2022-07-31 00:00:00 Completed [facility] TDAP 2022-07-31 00:00:00 Completed [facility] TDAP Unknown Completed [facility] TDAP Unknown Completed [facility] TDAP Unknown Completed [facility] TDAP Unknown Completed [facility] TDAP Unknown Completed [facility] TDAP Unknown Completed [facility] TDAP Unknown Completed [facility] TDAP Unknown Completed [facility] TDAP Unknown Completed [facility] TDAP Unknown Completed [facility] TDAP Unknown Completed [facility] Vital Signs Vital Name Observation Time Observation Value Comments S ource Systolic blood pressure 2023-10-23 15:00:00 97 mm[Hg] [facility] Diastolic blood pressure 2023-10-23 15:00:00 65 mm[Hg] [facility] Heart rate 2023-10-23 15:00:00 55 /min [facility] Respiratory rate 2023-10-23 15:00:00 18 /min [facility] Oxygen saturation in Arterial blood by Pulse oximetry 2023-10-23 15:00:00 100 /min [facility] Body temperature 2023-10-23 13:40:00 36.5 Sarita [facility] Body height 2023-10-23 10:17:00 165.1 cm [facility] Body weight 2023-10-23 10:17:00 67 kg [facility] BMI 2023-10-23 10:17:00 24.58 kg/m2 [facility] Systolic blood pressure 2023-10-23 14:00:00 105 mm[Hg] [facility] Diastolic blood pressure 2023-10-23 14:00:00 69 mm[Hg] [facility] Heart rate 2023-10-23 14:00:00 73 /min [facility] Respiratory rate 2023-10-23 14:00:00 14 /min [facility] Oxygen saturation in Arterial blood by Pulse oximetry 2023-10-23 14:00:00 100 /min [facility] Body temperature 2023-10-23 13:40:00 36.5 Sarita [facility] Body height 2023-10-23 10:17:00 165.1 cm [facility] Body weight 2023-10-23 10:17:00 67 kg [facility] BMI 2023-10-23 10:17:00 24.58 kg/m2 [facility] Diastolic blood pressure 2023-10-20 19:59:00 76 mm[Hg] [facility] Heart rate 2023-10-20 19:59:00 108 /min [facility] Oxygen saturation in Arterial blood by Pulse oximetry 2023-10-20 19:59:00 99 /min [facility] Systolic blood pressure 2023-10-20 19:59:00 114 mm[Hg] [facility] Respiratory rate 2023-10-20 19:55:00 19 /min [facility] Body height 2023-10-20 19:55:00 165.1 cm [facility] Body weight 2023-10-20 19:55:00 67.132 kg [facility] BMI 2023-10-20 19:55:00 24.63 kg/m2 [facility] Systolic blood pressure 2023-10-16 15:46:00 109 mm[Hg] [facility] Diastolic blood pressure 2023-10-16 15:46:00 63 mm[Hg] [facility] Heart rate 2023-10-16 15:46:00 81 /min [facility] Body temperature 2023-10-16 15:46:00 36.39 Sarita [facility] Respiratory rate 2023-10-16 15:46:00 16 /min [facility] Body height 2023-10-16 15:46:00 165.1 cm [facility] Body weight 2023-10-16 15:46:00 66.679 kg [facility] BMI 2023-10-16 15:46:00 24.46 kg/m2 [facility] Systolic blood pressure 2023-10-06 19:38:00 120 mm[Hg] [facility] Diastolic blood pressure 2023-10-06 19:38:00 78 mm[Hg] [facility] Heart rate 2023-10-06 19:38:00 93 /min [facility] Body temperature 2023-10-06 19:38:00 36.28 Sarita [facility] Respiratory rate 2023-10-06 19:38:00 18 /min [facility] Body height 2023-10-06 19:38:00 165.1 cm [facility] Body weight 2023-10-06 19:38:00 66.906 kg [facility] BMI 2023-10-06 19:38:00 24.55 kg/m2 [facility] Systolic blood pressure 2023-09-15 17:56:00 108 mm[Hg] [facility] Diastolic blood pressure 2023-09-15 17:56:00 76 mm[Hg] [facility] Heart rate 2023-09-15 17:56:00 107 /min [facility] Body temperature 2023-09-15 17:50:00 36.72 Sarita [facility] Respiratory rate 2023-09-15 17:50:00 17 /min [facility] Body height 2023-09-15 17:50:00 165.1 cm [facility] Body weight 2023-09-15 17:50:00 67.949 kg [facility] BMI 2023-09-15 17:50:00 24.93 kg/m2 [facility] Systolic blood pressure 2022-11-14 15:22:00 117 mm[Hg] [facility] Diastolic blood pressure 2022-11-14 15:22:00 70 mm[Hg] [facility] Heart rate 2022-11-14 15:22:00 90 /min [facility] Body temperature 2022-11-14 15:22:00 36 Sarita [facility] Respiratory rate 2022-11-14 15:22:00 18 /min [facility] Body height 2022-11-14 15:22:00 165.1 cm [facility] Body weight 2022-11-14 15:22:00 70.58 kg [facility] BMI 2022-11-14 15:22:00 25.89 kg/m2 [facility] Systolic blood pressure 2022-10-23 20:53:00 94 mm[Hg] [facility] Diastolic blood pressure 2022-10-23 20:53:00 76 mm[Hg] [facility] Heart rate 2022-10-23 20:53:00 86 /min [facility] Body temperature 2022-10-23 20:53:00 36.78 Sarita [facility] Respiratory rate 2022-10-23 20:53:00 18 /min [facility] Body weight 2022-10-23 20:53:00 69.899 kg [facility] BMI 2022-10-23 20:53:00 25.64 kg/m2 [facility] [facility] Systolic blood pressure 2022-10-04 13:13:00 120 mm[Hg] [facility] Diastolic blood pressure 2022-10-04 13:13:00 76 mm[Hg] [facility] Heart rate 2022-10-04 13:13:00 83 /min [facility] Body temperature 2022-10-04 13:13:00 36.5 Sarita [facility] Respiratory rate 2022-10-04 13:13:00 18 /min [facility] Oxygen saturation in Arterial blood by Pulse oximetry 2022-10-04 13:13:00 97 /min [facility] Body height 2022-10-02 16:15:00 165.1 cm [facility] Body weight 2022-10-02 16:15:00 74.39 kg [facility] BMI 2022-10-02 16:15:00 27.29 kg/m2 [facility] Systolic blood pressure 2022-10-02 12:58:00 111 mm[Hg] [facility] Diastolic blood pressure 2022-10-02 12:58:00 76 mm[Hg] [facility] Heart rate 2022-10-02 12:58:00 97 /min [facility] Body temperature 2022-10-02 12:58:00 36.61 Sarita [facility] Respiratory rate 2022-10-02 12:58:00 17 /min [facility] Body height 2022-10-02 12:58:00 165.1 cm [facility] Body weight 2022-10-02 12:58:00 74.571 kg [facility] BMI 2022-10-02 12:58:00 27.36 kg/m2 [facility] Systolic blood pressure 2022-10-02 03:30:00 115 mm[Hg] [facility] Diastolic blood pressure 2022-10-02 03:30:00 70 mm[Hg] [facility] Heart rate 2022-10-02 03:30:00 93 /min [facility] Oxygen saturation in Arterial blood by Pulse oximetry 2022-10-02 03:30:00 99 /min [facility] Body temperature 2022-10-02 01:00:00 36.78 Sarita [facility] Body weight 2022-10-02 01:00:00 75.206 kg [facility] BMI 2022-10-02 01:00:00 27.59 kg/m2 [facility] Systolic blood pressure 2022-09-27 19:40:00 114 mm[Hg] [facility] Diastolic blood pressure 2022-09-27 19:40:00 69 mm[Hg] [facility] Heart rate 2022-09-27 19:40:00 94 /min [facility] Oxygen saturation in Arterial blood by Pulse oximetry 2022-09-27 19:40:00 99 /min [facility] Systolic blood pressure 2022-09-26 14:40:00 101 mm[Hg] [facility] Diastolic blood pressure 2022-09-26 14:40:00 65 mm[Hg] [facility] Heart rate 2022-09-26 14:40:00 93 /min [facility] Body temperature 2022-09-26 14:40:00 36.5 Sarita [facility] Respiratory rate 2022-09-26 14:40:00 20 /min [facility] Body height 2022-09-26 14:40:00 165.1 cm [facility] Body weight 2022-09-26 14:40:00 75.206 kg [facility] BMI 2022-09-26 14:40:00 27.59 kg/m2 [facility] Heart rate 2022-09-26 02:57:00 87 /min [facility] Oxygen saturation in Arterial blood by Pulse oximetry 2022-09-26 02:57:00 99 /min [facility] Systolic blood pressure 2022-09-26 02:30:00 115 mm[Hg] [facility] Diastolic blood pressure 2022-09-26 02:30:00 62 mm[Hg] [facility] Respiratory rate 2022-09-26 02:00:00 16 /min [facility] Body temperature 2022-09-25 23:59:00 36.67 Sarita [facility] Systolic blood pressure 2022-09-23 15:29:00 113 mm[Hg] [facility] Diastolic blood pressure 2022-09-23 15:29:00 68 mm[Hg] [facility] Heart rate 2022-09-23 15:29:00 93 /min [facility] Body temperature 2022-09-23 15:29:00 36.78 Sarita [facility] Respiratory rate 2022-09-23 15:29:00 16 /min [facility] Body height 2022-09-23 15:29:00 165.1 cm [facility] Body weight 2022-09-23 15:29:00 74.798 kg [facility] BMI 2022-09-23 15:29:00 27.44 kg/m2 [facility] Systolic blood pressure 2022-09-19 13:33:00 111 mm[Hg] [facility] Diastolic blood pressure 2022-09-19 13:33:00 68 mm[Hg] [facility] Heart rate 2022-09-19 13:33:00 101 /min [facility] Body temperature 2022-09-19 13:33:00 35.56 Sarita [facility] Respiratory rate 2022-09-19 13:33:00 18 /min [facility] Body height 2022-09-19 13:33:00 165.1 cm [facility] Body weight 2022-09-19 13:33:00 74.435 kg [facility] BMI 2022-09-19 13:33:00 27.31 kg/m2 [facility] Systolic blood pressure 2022-09-12 18:53:00 109 mm[Hg] [facility] Diastolic blood pressure 2022-09-12 18:53:00 67 mm[Hg] [facility] Heart rate 2022-09-12 18:53:00 96 /min [facility] Body temperature 2022-09-12 18:53:00 36.28 Sarita [facility] Respiratory rate 2022-09-12 18:53:00 18 /min [facility] Body height 2022-09-12 18:53:00 165.1 cm [facility] Body weight 2022-09-12 18:53:00 73.392 kg [facility] BMI 2022-09-12 18:53:00 26.92 kg/m2 [facility] Systolic blood pressure 2022-09-09 14:13:00 101 mm[Hg] [facility] Diastolic blood pressure 2022-09-09 14:13:00 64 mm[Hg] [facility] Heart rate 2022-09-09 14:13:00 89 /min [facility] Body temperature 2022-09-09 14:13:00 36.17 Sarita [facility] Respiratory rate 2022-09-09 14:13:00 18 /min [facility] Body height 2022-09-09 14:13:00 165.1 cm [facility] Body weight 2022-09-09 14:13:00 73.12 kg [facility] BMI 2022-09-09 14:13:00 26.83 kg/m2 [facility] Systolic blood pressure 2022-09-05 18:52:00 111 mm[Hg] [facility] Diastolic blood pressure 2022-09-05 18:52:00 72 mm[Hg] [facility] Heart rate 2022-09-05 18:52:00 95 /min [facility] Body temperature 2022-09-05 18:52:00 36.17 Sarita [facility] Respiratory rate 2022-09-05 18:52:00 18 /min [facility] Body height 2022-09-05 18:52:00 165.1 cm [facility] Body weight 2022-09-05 18:52:00 73.437 kg [facility] BMI 2022-09-05 18:52:00 26.94 kg/m2 [facility] Systolic blood pressure 2022-09-02 13:59:00 110 mm[Hg] [place] [facility] Diastolic blood pressure 2022-09-02 13:59:00 65 mm[Hg] [facility] Heart rate 2022-09-02 13:59:00 93 /min [facility] Body temperature 2022-09-02 13:59:00 35.72 Sarita [facility] Respiratory rate 2022-09-02 13:59:00 18 /min [facility] Body height 2022-09-02 13:59:00 165.1 cm [facility] Body weight 2022-09-02 13:59:00 72.303 kg [facility] BMI 2022-09-02 13:59:00 26.53 kg/m2 [facility] Systolic blood pressure 2022-08-29 17:58:00 106 mm[Hg] [facility] Diastolic blood pressure 2022-08-29 17:58:00 64 mm[Hg] [facility] Heart rate 2022-08-29 17:58:00 95 /min [facility] Body temperature 2022-08-29 17:58:00 36.61 Sarita [facility] Respiratory rate 2022-08-29 17:58:00 18 /min [facility] Body height 2022-08-29 17:58:00 165.1 cm [facility] Body weight 2022-08-29 17:58:00 71.725 kg [facility] BMI 2022-08-29 17:58:00 26.31 kg/m2 [facility] Systolic blood pressure 2022-08-14 15:55:00 99 mm[Hg] [facility] Diastolic blood pressure 2022-08-14 15:55:00 65 mm[Hg] [facility] Heart rate 2022-08-14 15:55:00 91 /min [facility] Body temperature 2022-08-14 15:55:00 36.11 Sarita [facility] Respiratory rate 2022-08-14 15:55:00 18 /min [facility] Body height 2022-08-14 15:55:00 165.1 cm [facility] Body weight 2022-08-14 15:55:00 69.264 kg [facility] BMI 2022-08-14 15:55:00 25.41 kg/m2 [facility] Systolic blood pressure 2022-07-31 14:40:00 110 mm[Hg] [facility] Diastolic blood pressure 2022-07-31 14:40:00 66 mm[Hg] [facility] Heart rate 2022-07-31 14:40:00 100 /min [facility] Body temperature 2022-07-31 14:40:00 36.22 Sarita [facility] Respiratory rate 2022-07-31 14:40:00 18 /min [facility] Body height 2022-07-31 14:40:00 165.1 cm [facility] Body weight 2022-07-31 14:40:00 67.949 kg [facility] BMI 2022-07-31 14:40:00 24.93 kg/m2 [facility] Systolic blood pressure 2022-07-16 14:08:00 106 mm[Hg] [facility] Diastolic blood pressure 2022-07-16 14:08:00 66 mm[Hg] [facility] Heart rate 2022-07-16 14:08:00 94 /min [facility] Body temperature 2022-07-16 14:08:00 35.56 Sarita [facility] Respiratory rate 2022-07-16 14:08:00 18 /min [facility] Body height 2022-07-16 14:08:00 165.1 cm [facility] Body weight 2022-07-16 14:08:00 64.728 kg [facility] BMI 2022-07-16 14:08:00 23.75 kg/m2 [facility] Systolic blood pressure 2022-06-25 16:11:00 98 mm[Hg] [facility] Diastolic blood pressure 2022-06-25 16:11:00 59 mm[Hg] [facility] Heart rate 2022-06-25 16:11:00 89 /min [facility] Body temperature 2022-06-25 16:11:00 36.06 Sarita [facility] Respiratory rate 2022-06-25 16:11:00 18 /min [facility] Body height 2022-06-25 16:11:00 165.1 cm [facility] Body weight 2022-06-25 16:11:00 61.735 kg [facility] BMI 2022-06-25 16:11:00 22.65 kg/m2 [facility] BMI 2022-05-28 15:24:00 20.82 kg/m2 [facility] Systolic blood pressure 2022-05-28 15:24:00 102 mm[Hg] [facility] Diastolic blood pressure 2022-05-28 15:24:00 57 mm[Hg] [facility] Heart rate 2022-05-28 15:24:00 84 /min [facility] Body temperature 2022-05-28 15:24:00 36.11 Sarita [facility] Respiratory rate 2022-05-28 15:24:00 18 /min [facility] Body height 2022-05-28 15:24:00 165.1 cm [facility] Body weight 2022-05-28 15:24:00 56.745 kg [facility] Systolic blood pressure 2022-04-30 14:03:00 131 mm[Hg] [facility] Diastolic blood pressure 2022-04-30 14:03:00 73 mm[Hg] [facility] Heart rate 2022-04-30 14:03:00 96 /min [facility] Body temperature 2022-04-30 14:03:00 36.39 Sarita [facility] Respiratory rate 2022-04-30 14:03:00 18 /min [facility] Body height 2022-04-30 14:03:00 165.1 cm [facility] Body weight 2022-04-30 14:03:00 52.164 kg [facility] BMI 2022-04-30 14:03:00 19.14 kg/m2 [facility] Procedures Procedure Date / Time Performed Performing Clinician Source [id number] - [place] LAPAROSCOPY FULGURATION OVIDUCTS 2023-10-23 11:58:00 Margarita Florez [facility] [id number] - [place] LAPAROSCOPY W/PLMT OCCLUSION DEVICE OVIDUCTS 2023-10-23 11:58:00 Margarita Florez [facility] HB ABO GROUPING 2023-10-23 10:48:00 [facility] 2023-10-23 10:48:00 Maureen Villasenor Un [facility] POCT TEST 2023-10-23 10:30:00 Jeremy Villasenor [facility] POCT TEST 2023-10-23 10:30:00 Jeremy Villasenor [facility] HB ECG ROUTINE & RHYTHM STRIP 2023-10-20 19:53:47 Ger Joshi [facility] CBC WITH DIFF 2023-09-15 18:26:00 Yumiko López [facility] CONSENT FOR CONTRACEPTION 2022-11-14 05:01:00 Doctor Unassigned, [place] [facility] CBC WITH DIFF 2022-10-03 09:53:00 Eric Paige [facility] VENOUS CORD GAS 2022-10-03 03:49:00 Enid Puri [facility] CENTRAL NEURAXIAL BLOCK 2022-10-03 02:13:00 Wilian Castaon [facility] CBC WITH DIFF 2022-10-02 18:58:00 Enid Puri [facility] HEPATITIS B SURFACE ANTIGEN 2022-10-02 18:58:00 Rajinder Schumacher [facility] HIV 1/2 AG-AB WITH REFLEX 2022-10-02 18:58:00 Rajinder Schumacher [facility] SYPHILIS IGG/IGM 2022-10-02 18:58:00 Rajinder Schumacher [facility] HEPATITIS B SURFACE ANTIGEN 2022-10-02 17:45:00 Enid Puri [facility] HB ABO GROUPING 2022-10-02 17:45:00 Tello Hopkins En[place] [facility] RHO (D) IMMUNE GLOBULIN 2022-10-02 17:45:00 Salty Arellano [facility] EXTRA TUBE SST 2022-10-02 17:45:00 Placido Alston [facility] HIV 1/2 AG-AB WITH REFLEX 2022-10-02 17:45:00 Enid Puri [facility] SYPHILIS IGG/IGM 2022-10-02 17:45:00 Feroz Puri [facility] HOSPITAL ADMISSION 2022-10-02 05:01:00 Doctor Un assigned, [place] [facility] URINALYSIS 2022-10-02 01:25:00 Augustina Mejias [facility] ADC CLC OR LCC ONLY - WET PREP 2022-10-02 01:25:00 Augustina Mejias [facility] NON-STRESS TEST 2022-09-26 17:52:48 Bruce Dumont [facility] URINALYSIS 2022-09-26 00:53:00 Guy Lee [facility] POCT URINALYSIS 2022-09-26 00:00:00 Mahnaz Dumont [facility] NON-STRESS TEST 2022-09-23 18:03:50 Bruce Dumont [facility] POCT URINALYSIS 2022-09-23 00:00:00 Mahnaz Dumont [facility] NON-STRESS TEST 2022-09-19 14:22:27 Bruce Dumont [facility] POCT URINALYSIS 2022-09-19 14:00:00 Mahnaz Dumont [facility] SECOND AND THIRD TRIMESTER ULTRASOUND 2022-09-19 13:18:00 Mahnaz Dumont [facility] NON-STRESS TEST 2022-09-12 19:46:08 Bruce Dumont [facility] POCT URINALYSIS 2022-09-12 18:55:00 Mahnaz Dumont [facility] SECOND AND THIRD TRIMESTER ULTRASOUND 2022-09-11 16:58:00 Mahnaz Dumont [facility] NON-STRESS TEST 2022-09-09 16:40:19 Bruce Dumont [facility] POCT URINALYSIS 2022-09-09 14:15:00 Mahnaz Dumont [facility] NON-STRESS TEST 2022-09-05 20:13:49 Bruce Dumont [facility] POCT URINALYSIS 2022-09-05 18:53:00 Mahnaz Dumont [facility] SECOND AND THIRD TRIMESTER ULTRASOUND 2022-09-04 13:30:00 Mahnaz Dumont [facility] NON-STRESS TEST 2022-09-02 14:50:26 Bruce Dumont [facility] POCT URINALYSIS 2022-09-02 14:00:00 Mahnaz Dumont [facility] NON-STRESS TEST 2022-08-29 18:46:13 Bruce Dumont [facility] POCT URINALYSIS 2022-08-29 18:00:00 Mahnaz Dumont [facility] SECOND AND THIRD TRIMESTER ULTRASOUND 2022-08-29 16:24:00 Mahnaz Dumont [facility] POCT URINALYSIS 2022-08-14 15:57:00 Mahnaz Dumont [facility] DISABILITY/FMLA 2022-08-01 05:01:00 Doctor Unass igned, [place] [facility] TDAP VACCINE, >11 YRS, IM 2022-07-31 14:53:09 Mahnaz Dumont [facility] POCT URINALYSIS 2022-07-31 14:43:00 Mahnaz Dumont [facility] POCT URINALYSIS 2022-07-16 14:11:00 Mahnaz Dumont [facility] STERILIZATION CONSENT FORM 2022-07-16 05:01:00 Doctor Unassigned, [place] [facility] POCT URINALYSIS 2022-06-25 16:14:00 Mahnaz Dumont [facility] POCT URINALYSIS 2022-05-28 15:26:00 Mahnaz Dumont [facility] EXTERNAL PROVIDER RECORDS 2022-05-08 05:01:00 Doctor Unassigned, [place] [facility] CBC WITH DIFF 2022-04-30 15:20:00 Mahnaz Dumont [facility] HEPATITIS B SURFACE ANTIGEN 2022-04-30 15:20:00 Mahnaz Dumont [facility] HB INDIRECT ANTIGLOBULIN TEST 2022-04-30 15:20:00 Mahnaz Dumont [facility] HIV 1/2 AG-AB WITH REFLEX 2022-04-30 15:20:00 Mahnaz Dumont [facility] PAP SMEAR-LIQUID BASED-CP 2022-04-30 15:20:00 Mahnaz Dumont [facility] SYPHILIS IGG/IGM 2022-04-30 15:20:00 Donna Dumont [facility] POCT URINALYSIS W/O SPECIFIC GRAVITY 2022-04-30 13:58:00 Mahnaz Dumont [facility] POCT TEST 2022-04-30 13:57:00 Jarod Dumont [facility] ASSIGNMENT OF BENEFITS 2022-04-30 13:41:39 Docto r Unassigned, [place] [facility] Encounters Start Date/Time End Date/Time Encounter Type Admission Type Attending Clinicians Care Facility Care Department Encounter ID Source 2023-11-17 09:00:00 2023-11-17 09:00:00 Outpatient R GER JOSHI [facility] [id number] [facility] 2023-10-30 08:15:00 2023-10-30 08:15:00 Outpatient R YUMIKO LÓPEZ [facility] [id number] [facility] 2023-10-28 09:00:00 2023-10-28 09:00:00 Outpatient R GER JOSHI [facility] [id number] [facility] 2023-10-23 05:10:00 2023-10-23 10:15:00 Hospital Encounter Margarita Florez [facility] 1..840.114 350.1.13.10 4.2.7.2.686 [id number] [facility] 2023-10-23 05:10:00 2023-10-23 10:15:00 Outpatient R MARGARITA FLOREZ [facility] POSITION CLASSIFICATION MANAGER [id number] [facility] 2023-10-23 07:00:00 2023-10-23 09:08:00 Surgery Devanana Margarita [facility] 1..840.114 350.1.13.10 4.2.7.2.686 [id number] [facility] 2023-10-20 14:30:00 2023-10-20 15:16:12 Outpatient R GER JOSHI [facility] [id number] [facility] 2023-10-20 14:30:00 2023-10-20 15:16:12 Office Visit Ger Josih [facility] 1..840.114 350.1.13.10 4.2.7.2.686 [id number] [facility] 2023-10-16 10:45:00 2023-10-16 11:21:09 Outpatient R ZAHIDA NESS [facility] [id number] [facility] 2023-10-16 10:45:00 2023-10-16 11:21:09 Office Visit John Zahida [facility] SUPERVISOR DECORATING [facility] MATERNAL & CHILD HEALTH [facility] 1.2.840.114 350.1.13.10 4.2.7.2.686 [id number] [facility] 2023-10-15 10:15:00 2023-10-15 10:15:00 Outpatient R ZAHIDA NESS [facility] [id number] [facility] 2023-10-13 00:00:00 2023-10-14 13:45:59 Telephone Pgy3 Pgy3 [facility] 1..840.114 350.1.13.10 4.2.7.2.686 [id number] [facility] 2023-10-08 10:00:00 2023-10-08 10:00:00 Outpatient R JOHNZAHIDA [facility] [id number] [facility] 2023-10-06 14:30:00 2023-10-06 15:42:38 Outpatient R TIMOTHY LAIRD [facility] [id number] [facility] 2023-10-06 14:30:00 2023-10-06 15:42:38 Office Visit Clinic, [facility] Timothy Laird [facility], [facility] 1.2.840.114 350.1.13.10 4.2.7.2.686 [id number] [facility] 2023-09-24 00:00:00 2023-09-28 14:19:29 Telephone Pgy1 Pgy1 [facility] 1.2.840.114 350.1.13.10 4.2.7.2.686 [id number] [facility] 2023-09-16 00:00:00 2023-09-22 14:35:48 Telephone Pcp, Patient Does Not Have A [facility] 1.840.114 350.1.13.10 4.2.7.2.686 [id number] [facility] 2023-09-15 12:30:00 2023-09-15 13:42:53 Outpatient R YUMIKO LÓPEZ [facility] [id number] [facility] 2023-09-15 12:30:00 2023-09-15 13:42:53 Office Visit Yumiko López [facility] SUPERVISOR DECORATING [facility] & CHILD [facility] 1.840.114 350.1.13.10 4.2.7.2.686 [id number] [facility] 2022-11-28 10:15:00 2022-11-28 10:15:00 Outpatient R MAHNAZ DUMONT [facility] [id number] [facility] 2022-11-14 10:00:00 2022-11-14 10:47:57 Outpatient R MAHNAZ DUMONT [facility] [id number] [facility] 2022-11-14 10:00:00 2022-11-14 10:47:57 Office Visit Mahnaz Dumont [facility] SUPERVISOR DECORATING [facility] & CHILD [facility] 1.84.114 350.1.13.10 4.2.7.2.686 [id number] [facility] 2022-11-14 00:00:00 2022-11-14 00:00:00 Orders Only Doctor Unassigned, [place] [facility] 1.84.114 350.1.13.10 4.2.7.2.686 [id number] [facility] 2022-10-23 16:00:00 2022-10-23 16:02:06 Outpatient R MAHNAZ DUMONT [facility] [id number] [facility] 2022-10-23 16:00:00 2022-10-23 16:02:06 Routine Visit Mahnaz Dumont [facility] SUPERVISOR DECORATING [facility] MATERNAL & CHILD [facility] 1.2.840.114 350.1.13.10 4.2.7.2.686 [id number] [facility] 2022-10-02 10:41:00 2022-10-04 14:26:00 Hospital Encounter Placido Alston Reg [facility] 1.2.840.114 350.1.13.10 4.2.7.2.686 [id number] [facility] 2022-10-03 10:15:00 2022-10-03 10:15:00 Outpatient P [facility] [id number] [facility] 2022-10-02 20:00:00 2022-10-02 20:00:00 Anesthesia Event Nixon Castano [facility] 1.2.840.114 350.1.13.10 4.2.7.2.686 [id number] [facility] 2022-10-02 08:00:00 2022-10-02 08:15:00 Routine Visit 1, Ang-Rmchp Nst Ultrasound [facility] SUPERVISOR DECORATING [facility] MAT[facility]NAL & CHILD [facility] 1.2.840.114 350.1.13.10 4.2.7.2.686 [id number] [facility] 2022-10-02 07:45:00 2022-10-02 08:06:18 Outpatient R MAHNAZ DUMONT [facility] [id number] [facility] 2022-10-02 07:45:00 2022-10-02 08:06:18 Routine Visit Mahnaz Dumont [facility] SUPERVISOR DECORATING [facility] MATERNAL & CHILD [facility] 1.2.840.114 350.1.13.10 4.2.7.2.686 [id number] [facility] 2022-10-02 00:00:00 2022-10-02 00:00:00 Orders Only Doctor Unassigned, [place] [facility] 1..114 350.1.13.10 4.2.7.2.686 [id number] [facility] 2022-10-01 19:47:00 2022-10-01 23:01:00 Outpatient X AUGUSTINA MEJIAS [facility] [id number] [facility] 2022-10-01 19:47:00 2022-10-01 23:01:00 Outpatient X AUGUSTINA MEJIAS [facility] [id number] [facility] 2022-10-01 19:47:00 2022-10-01 23:01:00 Emergency Augustina Mejias [facility] 1.840.114 350.1.13.10 4.2.7.2.686 [id number] [facility] 2022-09-27 12:06:00 2022-09-27 14:56:00 Outpatient P OSWALD PURCELL [facility] [id number] [facility] 2022-09-27 12:06:00 2022-09-27 14:56:00 Hospital Encounter Oswald Purcell [facility] 1.840.114 350.1.13.10 4.2.7.2.686 [id number] [facility] 2022-09-26 09:15:00 2022-09-26 10:08:56 Outpatient R MAHNAZ DUMONT [facility] [id number] [facility] 2022-09-26 09:15:00 2022-09-26 10:08:56 Routine Visit Mahnaz Dumont [facility] SUPERVISOR DECORATING [facility] 1.840.114 350.1.13.10 4.2.7.2.686 [id number] [facility] 2022-09-26 09:15:00 2022-09-26 09:15:00 Outpatient R MAHNAZ DUMONT [facility] [id number] [facility] 2022-09-26 00:00:00 2022-09-26 00:00:00 Telephone Mahnaz Dumont [facility] SUPERVISOR DECORATING [facility] 1.2.840.114 350.1.13.10 4.2.7.2.686 [id number] 107 [id number] [facility] 2022-09-25 18:35:00 2022-09-25 22:13:00 Outpatient P SIOBHAN KEYES [facility] PRAMOD [id number] [facility] 2022-09-25 18:35:00 2022-09-25 22:13:00 Hospital Encounter Abby Russell [facility] 1.840.114 350.1.13.10 4.2.7.2.686 [id number] [facility] 2022-09-25 00:00:00 2022-09-25 00:00:00 Telephone Mahnaz Dumont [facility] SUPERVISOR DECORATING [facility] 1.2.840.114 350.1.13.10 4.2.7.2.686 [id number] 107 [id number] [facility] 2022-09-25 00:00:00 2022-09-25 00:00:00 Abstract Mahnaz Dumont [facility] SUPERVISOR DECORATING [facility] CHILD [facility] 1.2.840.114 350.1.13.10 4.2.7.2.686 [id number] 107 [id number] [facility] 2022-09-25 00:00:00 2022-09-25 00:00:00 Nurse Triage Chelsey Kelsey [facility] 1.2840.114 350.1.13.10 4.2.7.2.686 [id number] [facility] 2022-09-23 10:15:00 2022-09-23 11:25:31 Routine Visit Mahnaz Dumont [facility] SUPERVISOR DECORATING [facility] & CHILD [facility] 1.2.840.114 350.1.13.10 4.2.7.2.686 [id number] [facility] 2022-09-19 08:45:00 2022-09-19 09:00:00 Routine Visit Mahnaz Dumont [facility] SUPERVISOR DECORATING [facility] & [facility]ILD [facility] 1.2.840.114 350.1.13.10 4.2.7.2.686 [id number] [facility] 2022-09-19 08:00:00 2022-09-19 08:21:57 [facility] [id number] 2022-09-19 08:00:00 2022-09-19 08:21:57 Silverware Etcher Visit Ultrasound, Marcin Kwok [facility] SUPERVISOR DECORATING [facility] & CHILD [facility] 1.2.840.114 350.1.13.10 4.2.7.2.686 [id number] [facility] 2022-09-16 08:45:00 2022-09-16 09:30:31 Outpatient R JULIAMAHNAZ [facility] [id number] [facility] 2022-09-12 14:00:00 2022-09-12 14:45:11 Outpatient R JULIA MAHNAZ [facility] [id number] [facility] 2022-09-12 14:00:00 2022-09-12 14:45:11 Routine Visit Mahnaz Dumont [facility] SUPERVISOR DECORATING [facility] & CHILD [facility] 1.2.840.114 350.1.13.10 4.2.7.2.686 [id number] [facility] 2022-09-12 00:00:00 2022-09-12 00:00:00 Abstract Julia Mahnaz Bergman [facility] SUPERVISOR DECORATING [facility] & CHILD [facility] 1..840.114 350.1.13.10 4.2.7.2.686 [id number] [facility] 2022-09-11 11:30:00 2022-09-11 11:55:43 Outpatient P GUALBERTO GUEVARA [facility] [id number] [facility] 2022-09-11 11:30:00 2022-09-11 11:55:43 Silverware Etcher Visit Ultrasound, [facility] Gualberto Guevara [facility] SUPERVISOR DECORATING [facility] & CHILD [facility] 1..840.114 350.1.13.10 4.2.7.2.686 [id number] [facility] 2022-09-11 00:00:00 2022-09-11 00:00:00 Abstract Mahnaz Dumont [facility] SUPERVISOR DECORATING [facility] & CHILD [facility] 1..840.114 350.1.13.10 4.2.7.2.686 [id number] [facility] 2022-09-09 09:45:00 2022-09-09 10:25:55 Outpatient R MAHNAZ DUMONT [facility] [id number] [facility] 2022-09-09 09:45:00 2022-09-09 10:25:55 Routine Visit Mahnaz Dumont [facility] SUPERVISOR DECORATING [facility] & CHILD [facility] 1..840.114 350.1.13.10 4.2.7.2.686 [id number] [facility] 2022-09-05 14:15:00 2022-09-05 15:03:59 Outpatient R MAHNAZ DUMONT [facility] [id number] [facility] 2022-09-05 14:15:00 2022-09-05 15:03:59 Routine Visit Mahnaz Dumont [facility] SUPERVISOR DECORATING [facility] & CHILD [facility] 1.2.840.114 350.1.13.10 4.2.7.2.686 [id number] [facility] 2022-09-05 00:00:00 2022-09-05 00:00:00 Abstract aMhnaz Dumont [facility] SUPERVISOR DECORATING [facility] & CHILD [facility] 1.2.840.114 350.1.13.10 4.2.7.2.686 [id number] [facility] 2022-09-04 08:30:00 2022-09-04 08:32:30 Outpatient P JESSICA DEMPSEY [facility] [id number] [facility] 2022-09-04 08:30:00 2022-09-04 08:32:30 Silverware Etcher Visit Ultrasound, Jessica Ramos Ikuvprachigikayalh [facility] SUPERVISOR DECORATING [facility] & CHILD [facility] 1.2.840.114 350.1.13.10 4.2.7.2.686 [id number] [facility] 2022-09-02 09:45:00 2022-09-02 09:45:00 Routine Visit Mahnaz Dumont [facility] SUPERVISOR DECORATING [facility] CHILD [facility] 1.2.840.114 350.1.13.10 4.2.7.2.686 [id number] [facility] 2022-09-02 09:45:00 2022-09-02 09:36:55 Outpatient R MAHNAZ DUMONT [facility] [id number] [facility] 2022-09-01 00:00:00 2022-09-01 00:00:00 Abstract Mahnaz Dumont [facility] SUPERVISOR DECORATING [facility]ILD [facility] 1.2.840.114 350.1.13.10 4.2.7.2.686 [id number] 107 [id number] [facility] 2022-09-01 00:00:00 2022-09-01 00:00:00 Telephone Mahnaz Dumont [facility] SUPERVISOR DECORATING [facility] CHILD [facility] 1..840.114 350.1.13.10 4.2.7.2.686 [id number] [facility] 2022-08-29 13:00:00 2022-08-29 13:47:33 Routine Visit Mahnaz Dumont [facility] SUPERVISOR DECORATING [facility] CHILD [facility] 1.840.114 350.1.13.10 4.2.7.2.686 [id number] [facility] 2022-08-29 11:00:00 2022-08-29 11:35:29 Outpatient P JESSICA DEMPSEY [facility] [id number] [facility] 2022-08-29 11:00:00 2022-08-29 11:35:29 Silverware Etcher Visit Ultrasound, Jessica Ramos [facility] SUPERVISOR DECORATING [facility] CHILD [facility] 1..840.114 350.1.13.10 4.2.7.2.686 [id number] [facility] 2022-08-14 11:00:00 2022-08-14 11:09:10 Outpatient R MAHNAZ DUMONT [facility] [id number] [facility] 2022-08-14 11:00:00 2022-08-14 11:09:10 Routine Visit Mahnaz Dumont [facility] 1..840.114 350.1.13.10 4.2.7.2.686 [id number] [facility] 2022-08-01 00:00:00 2022-08-01 00:00:00 Orders Only Doctor Unassigned, [place] [facility] 1.2840.114 350.1.13.10 4.2.7.2.686 [id number] [facility] 2022-07-31 11:30:00 2022-07-31 11:30:00 Outpatient P [facility] [id number] [facility] 2022-07-31 09:45:00 2022-07-31 10:04:21 Outpatient R MAHNAZ DUMONT [facility] [id number] [facility] 2022-07-31 09:45:00 2022-07-31 10:04:21 Routine Visit Mahnaz Dumont [facility] SUPERVISOR DECORATING [facility] CHILD [facility] 1.2.840.114 350.1.13.10 4.2.7.2.686 [id number] [facility] 2022-07-30 00:00:00 2022-07-30 00:00:00 Abstract Mahnaz Dumont [facility] SUPERVISOR DECORATING [facility] CHILD [facility] 1.2.840.114 350.1.13.10 4.2.7.2.686 [id number] [facility] 2022-07-30 00:00:00 2022-07-30 00:00:00 Abstract Mahnaz Dumont [facility] SUPERVISOR DECORATING [facility]ILD [facility] 1.2.840.114 350.1.13.10 4.2.7.2.686 [id number] [facility] 2022-07-30 00:00:00 2022-07-30 00:00:00 Telephone Mahnaz Dumont [facility] SUPERVISOR DECORATING [facility] CHILD [facility] 1.2.840.114 350.1.13.10 4.2.7.2.686 [id number] [facility] 2022-07-29 11:30:00 2022-07-29 12:00:00 Silverware Etcher Visit Ultrasound, [facility] Gualberto Guevara [facility] SUPERVISOR DECORATING [facility] & CHILD [facility] 1..840.114 350.1.13.10 4.2.7.2.686 [id number] [facility] 2022-07-29 11:30:00 2022-07-29 11:30:00 Outpatient P GUALBERTO GUEVARA [facility] [id number] [facility] 2022-07-16 08:45:00 2022-07-16 09:31:17 Outpatient R MAHNAZ DUMONT [facility] [id number] [facility] 2022-07-16 08:45:00 2022-07-16 09:31:17 Routine Visit Mahnaz Dumont [facility] SUPERVISOR DECORATING [facility]ILD [facility] ..840.114 350.1.13.10 4.2.7.2.686 [id number] 107 [id number] [facility] 2022-07-16 09:00:00 2022-07-16 09:00:00 Outpatient R MAHNAZ DUMONT [facility] [id number] [facility] 2022-07-16 00:00:00 2022-07-16 00:00:00 Orders Only Doctor Unassigned, [place] [facility] ..840.114 350.1.13.10 4.2.7.2.686 [id number] [facility] 2022-06-25 11:00:00 2022-06-25 11:25:39 Outpatient R MAHNAZ DUMONT [facility] [id number] [facility] 2022-06-25 11:00:00 2022-06-25 11:25:39 Routine Visit Mahnaz Dumont [facility] ..840.114 350.1.13.10 4.2.7.2.686 [id number] [facility] 2022-05-29 00:00:00 2022-05-29 00:00:00 Abstract Mahnaz Dumont [facility] SUPERVISOR DECORATING [facility]ILD [facility] 1.2.840.114 350.1.13.10 4.2.7.2.686 [id number] [facility] 2022-05-29 00:00:00 2022-05-29 00:00:00 Telephone Mahnaz Dumont [facility] SUPERVISOR DECORATING [facility] CHILD [facility] 1.2.840.114 350.1.13.10 4.2.7.2.686 [id number] [facility] 2022-05-28 11:00:00 2022-05-28 11:00:00 Routine Visit Mahnaz Dumont [facility] SUPERVISOR DECORATING [facility] & CHILD [facility] 1.2840.114 350.1.13.10 4.2.7.2.686 [id number] [facility] 2022-05-28 11:00:00 2022-05-28 10:42:04 Outpatient R MAHNAZ DUMONT [facility] [id number] [facility] 2022-05-28 09:30:00 2022-05-28 10:30:00 Silverware Etcher Visit Ultrasound, Abby Yip [facility] SUPERVISOR DECORATING [facility] & CHILD [facility] 1.2.840.114 350.1.13.10 4.2.7.2.686 [id number] [facility] 2022-05-08 00:00:00 2022-05-08 00:00:00 Orders Only Doctor Unassigned, [place] [facility] 1.2.840.114 350.1.13.10 4.2.7.2.686 [id number] [facility] 2022-04-30 08:30:00 2022-04-30 10:22:50 Outpatient R MAHNAZ DUMONT [facility] [id number] [facility] 2022-04-30 08:30:00 2022-04-30 10:22:50 Initial Visit Mahnaz Dumont [facility] SUPERVISOR DECORATING [facility] 1.840.114 350.1.13.10 4.2.7.2.686 [id number] [facility] 2022-04-30 00:00:00 2022-04-30 00:00:00 Orders Only Doctor Unassigned, [place] [facility] 1.840.114 350.1.13.10 4.2.7.2.686 [id number] [facility] Results Test Description Test Time Test Comments Results Result Co mments Source [facility] This is a pre-surgical type and screen. ONCE [id number] 10:55:00* Test Item Value Reference Range Interpretation Comme nts ABO & RH (test code = 20) AB POSITIVE IAT (test code = 1185) Negative [facility]AllenPO[facility] [id number] 10:45:00* Test Item Value Reference Range Interpretation Comme nts POCT PREG (test code = 1605) Negative On board controls acceptable with C Line (test code = 3574) Yes POCT PREG LOT # (test code = 3575) POCT PREG TEST DATE ( test code = 3576) Lab Interpretation (test cod e = 50119-0) Normal [facility]AllenPO[facility] [id number] 10:45:00* Test Item Value Reference Range Interpretation Comme nts POCT PREG (test code = 1605) Negative On board controls acceptable with C Line (test code = 3574) Yes POCT PREG LOT # (test code = 3575) POCT PREG TEST DATE ( test code = 3576) Lab Interpretation (test cod e = 87930-4) Normal [facility]AllenCbc with [id number] 04:48:37* Test Item Value Reference Range Interpretation Comme nts WBC (test code = 6690-2) 5.34 4.30-11.10 RBC (test code = 789-8) 4.82 3.93-5.25 HGB (test code = 718-7) 13.1 g/dL 11.6-15.0 HCT (test code = 4544-3) 40.6 % 35.7-45.2 MCV (test code = 787-2) 84.2 fL 80.6-95.5 MCH (test code = 785-6) 27.2 pg 25.9-32.8 MCHC (test code = 786-4) 32.3 g/dL 31.6-35.1 RDW-SD (test code = 25266-7) 39.8 fL 39.0-49.9 RDW-CV (test code = 788-0) 12.9 % 12.0-15.5 PLT (test code = 777-3) 283 166-358 MPV (test code = 76881-6) 9.2 fL 9.5-12.9 L NRBC/100 WBC (test code = 0759721596) 0.0 0.0-10.0 NRBC x10^3 (test code = 4522586294) See_Comment [Automated messa ge] The system which generated this result transmitted reference range: 10*3/?L. The reference range was not used to interpret this result as normal/abnormal. GRAN MAT (NEUT) % (test code = 770-8) 56.7 % IMM GRAN % (test code = 7051477472) 0.20 % LYMPH % (test code = 736-9) 32.4 % MONO % (test code = 5905-5) 7.1 % EOS % (test code = 713-8) 3.4 % BASO % (test code = 706-2) 0.2 % GRAN MAT x10^3(ANC) (test code = 3941053540) 3.03 10*3/uL 1.88-7.09 IMM GRAN x10^3 (test code = 1027350519) 0.00-0.06 LYMPH x10^3 (test code = 731-0) 1.73 10*3/uL 1.32-3.29 MONO x10^3 (test code = 742-7) 0.38 10*3/uL 0.33-0.92 EOS x10^3 (test code = 711-2) 0.18 10*3/uL 0.03-0.39 BASO x10^3 (test code = 704-7) 0.01-0.07 Lab Interpretation (test code = 16765-8) Abnormal [facility]AllenSYPHILIS [id number] 15:31:33* Test Item Value Reference Range Interpretation Comme [facility] Syphilis IgG/IgM (test code = 61371-1) Non-reactive Non-reactive ELIANA (test code = ELIANA) Non-reactive - No serologic evidence of T. pallidum infection. Cannot exclude incubating or early syphilis. Submit a second specimen in 2-4 weeks if syphilis is clinically suspected. Equivocal - Further testing to follow. Reactive - Further testing to follow. Lab Interpretation (test code = 96763-3) Normal [facility]AllenGALV ONLY - SYPHILIS [id number] 15:29:50* Test Item Value Reference Range Interpretation Comme [facility] Syphilis IgG/IgM (test code = 22797-3) Non-reactive Non-reactive ELIANA (test code = ELIANA) Non-reactive - No serologic evidence of T. pallidum infection. Cannot exclude incubating or early syphilis. Submit a second specimen in 2-4 weeks if syphilis is clinically suspected. Equivocal - Further testing to follow. Reactive - Further testing to follow. Lab Interpretation (test code = 44876-9) Normal [facility]AllenRHO (D) IMMUNE [id number] 05:04:22* Test Item Value Reference Range Interpretation Comme nts RHIG CANDIDATE? (test code = 5188) No- see comment Patient is not a candidate for RhIg- Patient is Rh Positive.Performed at [facility] Laboratory Services - [facility] Blood [address] [address]Bomp Free: [phone] No. [id number] [facility] McAllenVenous Cord [id number] 04:01:01* Test Item Value Reference Range Interpretation Comme nts VENOUS BASE EXCESS, CORD (test code = 6020108384) -0.8 mEq/L VENOUS PH, CORD (test code = 7390013165) 7.42 7.25-7.45 VENOUS PC02, CORD (test code = 8914765913) 37 See_Comment [Automated messa ge] The system which generated this result transmitted reference range: 27 - 49 mmHg. The reference range was not used to interpret this result as normal/abnormal. VENOUS PO2, CORD (test code = 3588715774) 39 See_Comment [Automated me ssage] The system which generated this result transmitted reference range: 17 - 41 mmHg. The reference range was not used to interpret this result as normal/abnormal. VENOUS BICARBONATE, CORD (test code = 9592913882) 23 See_Comment [Automated messa ge] The system which generated this result transmitted reference range: 12 - 29 mEq/L. The reference range was not used to interpret this result as normal/abnormal. [facility] McAllenArterial Cord [id number] 03:59:05* Test Item Value Reference Range Interpretation Comme nts BASE EXCESS, CORD (test code = 5618953028) -1.1 mEq/L AC PH, CORD (BEAKER) (test code = 4111291547) 7.33 7.18-7.38 PC02, CORD (test code = 3821476335) 49 See_Comment [Automated messa ge] The system which generated this result transmitted reference range: 32 - 66 mmHg. The reference range was not used to interpret this result as normal/abnormal. PO2, CORD (test code = 0516926293) 22 See_Comment [Automated messa ge] The system which generated this result transmitted reference range: 10 - 30 mmHg. The reference range was not used to interpret this result as normal/abnormal. BICARBONATE, CORD (test code = 7480479372) 26 See_Comment [Automated messa ge] The system which generated this result transmitted reference range: 17 - 27 mEq/L. The reference range was not used to interpret this result as normal/abnormal. [facility] McAllenHIV 1/2 AG-AB WITH [id number] 01:16:40* Test Item Value Reference Range Interpretation Comme nts HIV Semi-quantitative (test code = 03835-0) 0.10 Negative ELIANA (test code = ELIANA) Non-reactive for HIV-1 antigen and HIV-1/HIV-2 antibodies. ?No laboratory evidence of HIV infection. ?Repeat in 2-4 weeks if acute HIV infection is suspected. [facility]AllenHIV 1/2 AG-AB WITH [id number] 22:14:20* Test Item Value Reference Range Interpretation Comme nts HIV Semi-quantitative (test code = 75161-7) 0.10 Negative ELIANA (test code = ELIANA) Non-reactive for HIV-1 antigen and HIV-1/HIV-2 antibodies. ?No laboratory evidence of HIV infection. ?Repeat in 2-4 weeks if acute HIV infection is suspected. [facility]Allen[facility] Surface [id number] 21:27:30 * Test Item Value Reference Range Interpretation Comme nts HBsAg Semi-Quantitative (neda t code = 5195-3) 0.08 Negative [facility] B SURFACE [id number] 21:16:04 * Test Item Value Reference Range Interpretation Comme nts HBsAg Semi-Quantitative (neda t code = 5195-3) 0.09 Negative [facility] McAllenCBC with [id number] 19:12:55* Test Item Value Reference Range Interpretation Comme nts WBC (test code = 6690-2) 9.61 See_Comment [Automated messa ge] The system which generated this result transmitted reference range: 4.30 - 11.10 10*3/?L. The reference range was not used to interpret this result as normal/abnormal. RBC (test code = 789-8) 3.96 See_Comment [Automated Scioderma ge] The system which generated this result [...] 31.9 g/dL 31.6-35.1 RDW-SD (test code = 39599-6) 37.6 fL 39.0-49.9 L RDW-CV (test code = 788-0) 13.2 % 12.0-15.5 PLT (test code = 777-3) 204 See_Comment [Automated messa ge] The system which generated this result transmitted reference range: 166 - 358 10*3/?L. The reference range was not used to interpret this result as normal/abnormal. MPV (test code = 06599-8) 10.2 fL 9.5-12.9 NRBC/100 WBC (test code = 3522406877) 0.0 See_Comment [Automated Arrively ssage] The system which generated this result transmitted reference range: 0.0 - 10.0 /100 WBCs. The reference range was not used to interpret this result as normal/abnormal. NRBC x10^3 (test code = 0826891385) See_Comment [Automated Scioderma ge] The system which generated this result transmitted reference range: 10*3/?L. The reference range was not used to interpret this result as normal/abnormal. GRAN MAT (NEUT) % (test code = 770-8) 77.7 % IMM GRAN % (test code = 5455435402) 0.70 % LYMPH % (test code = 736-9) 15.1 % MONO % (test code = 5905-5) 6.1 % EOS % (test code = 713-8) 0.2 % BASO % (test code = 706-2) 0.2 % GRAN MAT x10^3(ANC) (test code = 5791459816) 7.46 10*3/uL 1.88-7.09 H IMM GRAN x10^3 (test code = 1824783973) 0.07 10*3/uL 0.00-0.06 H LYMPH x10^3 (test code = 731-0) 1.45 10*3/uL 1.32-3.29 MONO x10^3 (test code = 742-7) 0.59 10*3/uL 0.33-0.92 EOS x10^3 (test code = 711-2) 0.03-0.39 L BASO x10^3 (test code = 704-7) 0.01-0.07 Lab Interpretation (test code = 25198-9) [facility] [id number] 17:55:00 * Test Item Value Reference Range Interpretation Comme nts ABO & RH (test code = 20) AB POSITIVE IAT (test code = 1185) Negative [facility] URINALYSIS W SPECIFIC [id number] 14:41:00* Test Item Value Reference Range Interpretation [...] U APPEAR (test code = 3267) . [facility] URINALYSIS W SPECIFIC [id number] 15:31:00* Test Item Value Reference Range Interpretation [...] U APPEAR (test code = 3267) . [facility] URINALYSIS W SPECIFIC [id number] 14:00:00* Test Item Value Reference Range Interpretation [...] U APPEAR (test code = 3267) . [facility] URINALYSIS W SPECIFIC [id number] 18:55:00* Test Item Value Reference Range Interpretation [...] U APPEAR (test code = 3267) . [facility] URINALYSIS W SPECIFIC [id number] 14:15:00* Test Item Value Reference Range Interpretation [...] U APPEAR (test code = 3267) . [facility] URINALYSIS W SPECIFIC [id number] 14:15:00* Test Item Value Reference Range Interpretation [...] U APPEAR (test code = 3267) . [facility] URINALYSIS W SPECIFIC [id number] 18:55:00* Test Item Value Reference Range Interpretation [...] U APPEAR (test code = 3267) . [facility] URINALYSIS W SPECIFIC [id number] 14:01:00* Test Item Value Reference Range Interpretation [...] U APPEAR (test code = 3267) . [facility] URINALYSIS W SPECIFIC [id number] 18:00:00* Test Item Value Reference Range Interpretation [...] U APPEAR (test code = 3267) . [facility] URINALYSIS W SPECIFIC [id number] 15:57:00* Test Item Value Reference Range Interpretation [...] U APPEAR (test code = 3267) .. [facility] URINALYSIS W SPECIFIC [id number] 14:44:00* Test Item Value Reference Range Interpretation [...] U APPEAR (test code = 3267) . [facility] URINALYSIS W SPECIFIC [id number] 14:12:00* Test Item Value Reference Range Interpretation [...] U APPEAR (test code = 3267) . [facility] URINALYSIS W SPECIFIC [id number] 14:12:00* Test Item Value Reference Range Interpretation [...] U APPEAR (test code = 3267) . [facility] URINALYSIS W SPECIFIC [id number] 14:12:00* Test Item Value Reference Range Interpretation [...] U APPEAR (test code = 3267) . [facility] URINALYSIS W SPECIFIC [id number] 16:14:00* Test Item Value Reference Range Interpretation [...] U APPEAR (test code = 3267) . [facility] URINALYSIS W SPECIFIC [id number] 16:14:00* Test Item Value Reference Range Interpretation [...] U APPEAR (test code = 3267) . [facility] URINALYSIS W SPECIFIC [id number] 16:14:00* Test Item Value Reference Range Interpretation [...] U APPEAR (test code = 3267) . [facility] URINALYSIS W SPECIFIC [id number] 15:26:00* Test Item Value Reference Range Interpretation [...] U APPEAR (test code = 3267) . [facility] ONLY - SYPHILIS [id number] 15:42:19* Test Item Value Reference Range Interpretation Comme [facility] Syphilis IgG/IgM (test code = 30298-0) Non-reactive Non-reactive ELIANA (test code = ELIANA) Non-reactive - No serologic evidence of T. pallidum infection. Cannot exclude incubating or early syphilis. Submit a second specimen in 2-4 weeks if syphilis is clinically suspected. Equivocal - Further testing to follow. Reactive - Further testing to follow. Lab Interpretation (test code = 46900-0) Normal [facility]-AB WITH [id number] 09:48:44* Test Item Value Reference Range Interpretation Comme [facility] HIV Semi-quantitative (test code = 01697-0) 0.08 Negative ELIANA (test code = ELIANA) Non-reactive for HIV-1 antigen and HIV-1/HIV-2 antibodies. ?No laboratory evidence of HIV infection. ?Repeat in 2-4 weeks if acute HIV infection is suspected. [facility] SURFACE [id number] 07:57:12 * Test Item Value Reference Range Interpretation Comme nts HBsAg Semi-Quantitative (neda t code = 5195-3) 0.06 Negative [facility] WITH [id number] 06:18:49* Test Item Value Reference Range Interpretation Comme nts WBC (test code = 6690-2) 7.53 See_Comment [Automated [employer] ge] The system which generated this result transmitted reference range: 4.30 - 11.10 10*3/?L. The reference range was not used to interpret this result as normal/abnormal. RBC (test code = 789-8) 4.74 See_Comment [Automated [employer]] The system which generated this result [...] 32.7 g/dL 31.6-35.1 RDW-SD (test code = 75990-6) 43.4 fL 39.0-49.9 RDW-CV (test code = 788-0) 14.2 % 12.0-15.5 PLT (test code = 777-3) 308 See_Comment [Automated [employer]] The system which generated this result transmitted reference range: 166 - 358 10*3/?L. The reference range was not used to interpret this result as normal/abnormal. MPV (test code = 06954-5) 9.3 fL 9.5-12.9 L NRBC/100 WBC (test code = 5295437295) 0.0 See_Comment [Automated [employer] ssage] The system which generated this result transmitted reference range: 0.0 - 10.0 /100 WBCs. The reference range was not used to interpret this result as normal/abnormal. NRBC x10^3 (test code = 8482521618) See_Comment [Automated messa ge] The system which generated this result transmitted reference range: 10*3/?L. The reference range was not used to interpret this result as normal/abnormal. GRAN MAT (NEUT) % (test code = 770-8) 71.1 % IMM GRAN % (test code = 0664424355) 0.30 % LYMPH % (test code = 736-9) 22.7 % MONO % (test code = 5905-5) 5.3 % EOS % (test code = 713-8) 0.3 % BASO % (test code = 706-2) 0.3 % GRAN MAT x10^3(ANC) (test code = 9523525523) 5.36 10*3/uL 1.88-7.09 IMM GRAN x10^3 (test code = 8861505335) 0.00-0.06 LYMPH x10^3 (test code = 731-0) 1.71 10*3/uL 1.32-3.29 MONO x10^3 (test code = 742-7) 0.40 10*3/uL 0.33-0.92 EOS x10^3 (test code = 711-2) 0.03-0.39 L BASO x10^3 (test code = 704-7) 0.01-0.07 Lab Interpretation (test code = 28274-9) Abnormal [facility], BLOOD [id number] 15:24:00 * Test Item Value Reference Range Interpretation Comme nts ABO & RH (test code = 20) AB POSITIVE IAT (test code = 1185) Negative [facility]ON[facility] [id number] 13:58:00* Test Item Value Reference Range Interpretation Comme nts POCT PREG (test code = 1605) Positive On board controls acceptable with C Line (test code = 3574) Yes POCT PREG LOT # (test code = 3575) POCT PREG TEST DATE ( test code = 3576) [facility] URINALYSIS W/O SPECIFIC [id number] 13:58:00* Test Item Value Reference Range Interpretation [...] = 3257) Trace Negative - Negati ve [facility] [id number] 13:58:00* Test Item Value Reference Range Interpretation Comme nts POCT PREG (test code = 1605) Positive On board controls acceptable with C Line (test code = 3574) Yes POCT PREG LOT # (test code = 3575) POCT PREG TEST DATE ( test code = 3576) [facility] URINALYSIS W/O SPECIFIC [id number] 13:58:00* Test Item Value Reference Range Interpretation [...] = 3257) Trace Negative - Negati ve [facility] History and Physical Notes Date/Time Note Provider Source 2023-10-23 06:37:15 GYNECOLOGY HISTORY AND PHYSICAL Date of Service: 10/23/23 CHARANJIT Forte is a 23 year old female presenting for scheduled laparoscopic bilateral salpingectomy due to desire for permanent sterilization and satisfied parity. Patient denies changes in medical history since pre-operative evaluation on 10/03/23. PSHx: None Sexual History: Social History Substance and Sexual Activity Sexual Activity Yes Partners: Male control/protection: None Comment: last sexual intercourse 04/28/2022 Current Medications: No current facility-administered medications for this encounter. Facility-Administered Medications Ordered in Other Encounters Medication Dose Route Frequency Last Rate Last Admin lidocaine-epinephrine (XYLOCAINE W/EPINEPHRINE) 1.5 %-1:200,000 injection Intradermal ONCE INTRA PROCEDURE 2 mL at 10/02/222018 ropivacaine 0.2 % (NAROPIN (PF)) epidural infusion Epidural CONTINUOUS PRN 12 mL/hr at 10/02/222014 12 mL/hr at 10/02/222014 Allergies: Tramadol History: Past Medical History: Diagnosis Date Anxiety and depression 04/30/2022 Surgical History: No past surgical history on file. ROS: General: negative Constitutional: negative Eyes: negative ENT/Mouth: negative Cardiovascular: negative Respiratory: negative Gastrointestinal:negative Genitourinary: negative Musculoskeletal: negative Skin/breast: negative Neurological: negative Psychiatric: negative Endocrine: negative Hemat/Lymph: negative Allergic/Immuno:none Physical Exam: Vitals: Vitals: 10/23/23 0517 BP: 114/71 Pulse: 83 Resp: 16 Temp: 37.1 ?C (98.8 ?F) SpO2: 97% Constitutional: alert, no apparent distress, appearing age appropriate CV: regular rate and rhythm, no murmurs/clicks/rubs Respiratory: Clear to auscultation bilaterally, good inspiratory effort to inspection Abdomen: soft, nontender, nondistended, no rebound/guarding Extremities: no edema or calf tenderness bilaterally Labs: CBC WBC (10*3/?L) Date Value 09/15/2023 5.34 RBC (10*6/?L) Date Value 09/15/2023 4.82 PLT (10*3/?L) Date Value 09/15/2023 283 HGB (g/dL) Date Value 09/15/2023 13.1 HCT (%) Date Value 09/15/2023 40.6 Imaging: None Assessment/Plan: Yanet Forte is a 23 year old female presenting for scheduled laparoscopic bilateral salpingectomy due to desire for permanent sterilization and satisfied parity. Desire for permanent sterilization - proceed with scheduled procedure today - preop Hgb 13.1 - Blood type AB pos, current type and screen ordered - UPT negative on admission - Risks/benefits/alternatives discussed, consents signed and in chart Ami Kg MD PGY-1, Obstetrics & Gynecology Associated attestation - Margarita Florez MD - 10/23/2023 7:08 AM CDT I examined the patient on the day of service and agree with resident's note as written. OG-OBSTETRICS & GYNECOLOGY [facility] 2022-10-02 10:57:42 Formatting of this n ote is different from the original. TRIAGE/L&D HISTORY & PHYSICAL IDENTIFYING DATA Yanet Forte is 22 year old, /White, 37w2d, female with ELLYN 10/21/2022, by Last Menstrual Period. : 2000 Primary Care Physician: Mahnaz Dumont CHIEF COMPLAINT Decreased movement HISTORY OF PRESENT ILLNESS Yanet Forte is a 22 year old at 37w2d who presents for decreased movement. Patient denies vaginal bleeding, reports trickling vaginal fluid, but denies large gush, denies contractions. Patient denies headache, denies nausea/vomiting, denies RUQ pain, denies visual abnormalities. Endorses normal movement. PAST OBSTETRIC HISTORY OB History Para Term AB Living 8 2 [...] Term 04/09/16 38w0d 3090 g M N LUCIANO Obstetric Comments ROR for [facility] [place] signed for hospital and care PAST MEDICAL HISTORY Problem list: Patient Active Problem List Diagnosis Date [...] 04/30/2022 Operations: No past surgical history on file. Past Medical History: Diagnosis Date Anxiety and depression 04/30/2022 CURRENT HEALTH STATUS Medications: Current Facility-Administered Medications Medication Dose Route Frequency [...] Allergies and drug reactions: Tramadol and Pitocin [oxytocin] HOME MEDICATIONS Medications Prior to Admission Medication Sig Dispense Refill [...] in the morning. 90 tablet 3 SOCIAL HISTORY Tobacco History: Social History Tobacco Use Smoking Status Never Passive exposure: Never Smokeless Tobacco Never Drug History: Social History Substance and Sexual Activity Drug Use Not Currently Types: Marijuana Comment: used daily- last intake 1.5 months ago Alcohol History: Social History Substance and Sexual Activity Alcohol Use Never FAMILY HISTORY Family History Problem Relation Age of Onset High cholesterol Mother Depression Mother Crohns Paternal Grandmother High cholesterol Paternal Grandfather REVIEW OF SYSTEMS General: negative Skin: negative HEENT: negative, - headache, - change in vision Neck: negative HEME: negative Resp: negative Cardio: negative GI: negative, (-) nausea, (-) vomiting : negative Endo: negative Neuro: negative Back: negative BELLE: negative Psych: negative VITAL SIGNS BP: (101-115)/(60-76) Temp: [36.6 ?C (97.9 ?F)-37.1 ?C (98.8 ?F)] Temp source: Oral (10/02 1115) Pulse: [86-103] Resp: [16-17] SpO2: [96 %-99 %] Height: [165.1 cm (5' 5")] Weight: [74.4 kg (164 lb)-75.2 kg (165 lb 12.8 oz)] BMI (calculated): [0-27.36] PHYSICAL EXAMINATIONS General: patient alert and in no acute distress HEENT: symmetric, negative for masses Lungs: unlabored breathing Cardiology: peripheral pulses intact and regular Abdomen: soft, non-tender, non-distended, no liver, spleen or abnormal masses palpated and Gravid Extremities: no clubbing, cyanosis, or edema Neuro: patient moving all extremities, no facial droop : SVE: 350/-2 REVIEW OF LABORATORY, PATHOLOGY, AND RADIOLOGY DATA Lab results: Type & Screen Lab Results Component Value Date/Time IABORH AB POSITIVE 10/02/2022 12:45 PM IAT Negative 04/30/2022 10:20 AM Serologies Lab Results Component Value Date/Time VZVIGG Positive 04/30/2022 10:20 AM RUBG Positive 04/30/2022 10:20 AM SYPIGG Non-reactive 07/31/2022 10:05 AM HBSAG Negative 04/30/2022 10:20 AM HBSAG 0.06 04/30/2022 10:20 AM Chlamydia Lab Results Component Value Date/Time VCAA Negative 09/23/2022 11:20 AM Group B Strep Lab Results Component Value Date/Time CGB Negative 09/23/2022 11:20 AM GTT Lab Results Component Value Date/Time IXOC2JQ 106 (L) 07/16/2022 10:07 AM CBC Lab Results Component Value Date/Time HGB 10.3 (L) 09/23/2022 11:20 AM HCT 32.0 (L) 09/23/2022 11:20 AM PLT 236 09/23/2022 11:20 AM Active Hospital Problems Diagnosis Date Noted 37 weeks gestation of 10/02/2022 Decreased movement 10/02/2022 Multiparity 04/30/2022 Resolved Hospital Problems No resolved problems to display. Present on Admission: 37 weeks gestation of Multiparity Decreased movement Placenta Accreta Screening Prior ? : No Prior Uterine Surgery?: No Placenta low lying/previa in current ? : No Ultrasound suspicion of PASD in current ?: No Screening outcome: A positive screening outcome indicates a history of prior delivery or prior uterine surgery, AND the presence of either a placenta low lying/previa or ultrasound suspicion of PASD in the current . Negative screening. ASSESSMENT AND PLAN Yanet Forte is a 22 year old at 37w2d by d/u(18) who presents for decreased movement. IOL - Denies ctx, vb, reports some leakage of fluid, reports decreased movement - SVE: 3 / 50 % / -2 - Contractions (number / 10 minute): 1 - Plan: Proceed with IOL with pitocin titration MPDPS - No surgical hx - 164 lbs - Patient counseled and still desires BTL, see separate counseling note - Consents signed 07/16/22 Low lying placenta (resolved) - Placenta posterior fundal and low lying @ 28w0d, resolved on all future scans - Most recent MFM US on 09/19 showing fundal placenta without previa - Hx of placenta previa in prior , resolved, FGR (resolved) - EFW 8%ile at 32w3d, normal dopplers - WYATT/dopplers and biweekly NSTs all reassuring - EFW: 2298 g, 16%tile AC 18%ile MFM Scan 09/19, resolved FGR Abnormal Pap - ASCUS pap on 04/30/22 - Needs colposcopy PP Antepartum course reviewed - 1 h 106, sero negative, Rimmune, VZVimmune, HPV not immune, AB positive/IAT negative, GBS negative, Pap ASCUS 04/30/22 - H/H, plt: 10.3 / 32.0, 236 on 09/23/22 - PP control plan: [facility] Fetus - Presentation on admission: cephalic - Fundal placenta - EFW: 3067 g, 48%tile, WYATT 8.3 cm on BSUS by R1 - FHT reactive and reassuring - Normal anatomy scan D/w Dr. Winsome Hopkins MD Associated attestation - Placido Alston MD - 10/02/2022 2:30 PM CDT Admitted for delivery, decreased movements at term. [facility] Procedure Notes Date/Time Note Provider Source 2022-10-02 21:13:48 Associated Order(s): Central Neuraxial Block Central Neuraxial Block Date/Time: 10/02/2022 9:13 PM Performed by: Nixon Castano DO Authorized by: Placido Alston MD Patient Location: OB End Time: 10/02/2022 9:13 PM Reason for Block: OB request, Patient request, Labor analgesia, Surgical anesthesia and Post-op pain management Staff: Anesthesiologist: French Hayden MD Resident/PROGRAMMING INSTRUCTOR: Nixon Castano DO Performed by: resident/PROGRAMMING INSTRUCTOR Preanesthetic Checklist: patient identified, IV checked, risks and benefits explained, monitors and equipment checked, timeout performed, pre-op evaluation, site marked and anesthesia consent Procedure: Type of Neuraxial: Epidural Sterility Prep gloves, mask, cap, drape and hand hygiene Prep: Betadine and patient draped Monitoring: heart rate, continuous pulse ox, heart rate / toco and NIBP Location: lumbar (1-5) Lumbar: L3-L4 Approach: midline Technique: catheter, BERNADETTE saline and BERNADETTE air Guidance with: landmark technique} Epidural/Spinal [place] and/or Catheter: Epidural/Spinal Kit: Travis Needle Type: Tuohy Needle Gauge: 17 G Needle Length: 3.5 in (8.89 cm) Needle Insertion Depth: 5 Catheter Type: multiport Catheter Size: 19 G Catheter at Skin Depth: 10 Number of Attempts: 1 Test Dose: lidocaine 1.5% with epinephrine 1-to-200,000 and negative Dose: 3 cc Catheter Securement Method: surgical tape, Tegaderm, clear occlusive dressing and liquid medical adhesive Assessment: Sensory Level: above T10 Block Outcome: a full evaluation is pending, patient comfortable, patient satisfied, patient tolerated procedure well, positive pain relief and successful block Procedure Assessment: patient tolerated procedure well with no complications Notes: Timeout was performed. Pt prepped and draped in usual sterile fashion. Skin anesthetized with lidocaine wheal at L3/4/5 interspace. Negative aspiration x3, negative test dose. Loss and secured as detailed above. Attempts x 1, no immediate complications apparent. [facility] Notes Date/Time Note Provider Source 2023-10-23 07:00:00 LAPAROSCOPIC BILATERAL SALPINGECTOMY OPERATIVE REPORT Date: 10/23/23 Preoperative Diagnosis: MPDPS Postoperative Diagnosis: MPDPS Procedure: Laparoscopic Bilateral Salpinectomy Faculty Surgeon: Margarita Florez MD Resident: Rhonda Kendall MD / Ami Saul MD Anesthesia: General Specimens: bilateral fallopian tubes Indication: Multiparous desiring permanent sterilization. The patient understood risks, benefits and alternatives to the procedure, and informed consent was signed. All questions were answered prior to the procedure. Narrative: After obtaining informed consent, patient was brought to the OR. Under satisfactory general anesthesia, the patient was placed on the operative table in the dorsal lithotomy position with the legs in [place] stirrups and draped in the normal sterile fashion. Bladder was emptied. Using a speculum, the cervix was visualized. A spongestick uterine manipulator was placed. Attention was turned to the abdomen. Incision was made at the umbilicus and a Veress needle was introduced into the abdominal cavity. Abdomen was insufflated. Under direct visualization with laparoscopic camera, two 5 mm ports were placed with trochars. The abdominal cavity was assessed. Right tube was identified and followed to its termination at the fimbria. The right mesosalpinx was cauterized underneath the right fallopian tube using Ligasure.The fallopian tube was then transected using Ligasure and sent for pathology. Left tube was identified and followed to its termination at the fimbria. The left tube was then removed in similar manner as the right tube. Hemostasis was ensured and the ports were removed under direct visualization. Subcuticular sutures were used to re-approximate the skin of the incision sites. Dermabond was applied over incision sites. Uterine manipulator was removed. Spongestick manipulator was removed. Case was considered terminated at this point. Lap and instrument counts were correct x 2. Patient was extubated in the OR and brought in stable condition to PACU. Condition of Patient after Surgery: Good Estimated Blood Loss: 10 cc Urine Output: 150 cc Complications: none Rhonda Kendall MD Obstetrics & Gynecology Associated attestation - Margarita Florez MD - 10/23/2023 8:40 AM CDT I was present for and supervised the entire procedure. OG-OBSTETRICS & GYNECOLOGY [facility] 2023-10-14 13:45:46 Pt already has surgery scheduled Farideh Perez [facility] 2023-10-13 12:55:22 Yanet Fotre is a 23 year old female Pt is calling to get an appt for a tubal surgery. Pt has a b/c removal on 10/15 and a cardiology appt scheduled for 10/19. Lucio Renae [facility] 2023-09-24 15:39:40 Yanet Forte is a 23 year old female Pt is calling in needing to r/s her appt for Z98.51 (ICD-10-CM)- Tubal Ligation Status Please call pt to r/s pt stated that she has been trying to get this appt scheduled since 09/15 Andres Cotter [facility] 2023-09-21 10:00:06 Yanet Forte is a 23 year old female Pt following up on an appt for Z98.51 (ICD-10-CM) - Tubal ligation status. States she was told she would be contacted for scheduling. Jose Franks [facility] 2023-09-18 11:03:45 Pt missed call and would like a call back Lucio Renae [facility] 2023-09-16 12:21:49 Yanet Forte is a 23 year old female Patient calling to schedule appt for her referral for tubal ligation, however no appointments with a faculty Are available can you please call patient to schedule for an appt. [phone] (home) Prosper Gonzalez [facility] 2022-10-03 20:55:25 Formatting of this n ote might be different from the original. Problem: Discharge Planning - Goal: Adequate for discharge Outcome: Progressing as expected Goal: Mood stable Outcome: Progressing as expected Problem: Breast-feeding - Ineffective Goal: Effective breast-feeding Outcome: Progressing as expected Edison Gómez RN [facility] 2022-10-03 12:30:00 Formatting of this n ote is different from the original. Images from the original note were not included. This note was copied from a baby's chart. [...] marijuanna use. Pt stated she lived in [place] at the time and her Dr recomended marijuana for n/v becuase othr medications were not working. Patient reports that she does not plan to use again. Mental health history Depression;Anxiety Oral Assessment Oral assessment New assessment Date of 10/02/22 Time of 1044 Infant location Mother Baby Unit Chin Normal Palate assessment Normal Tongue assessment Normal Upper lip assessment Normal Infant head assessment No abnormalities Is this a [...] techniques;2nd day/growth spurt cluster feeds;Position changes;Breaking seal;Maternal nutrition/hydration;Lactogen esis;Benefits of breast massage and hand expression;Engorgement signs and treatment;Risks of mastitis and signs, seek medical attention immediately Handouts given [place] L[employer] Coater Observation Pumping No Reported;Mom states infant latches well with no pain Follow up Mom will call staff;[facility] warmline;[place] Recommended Feeding Plan Recommended feeding plan On-demand , 8-12 times in 24 hours not to exceed 6 hours between feeds;Frequent tbvb-af-sxus time with parents Mom has a history [...] in life. Mare Bender, MSN, RNC-MNN, IBCLC Mare Bender RN [facility] 2022-10-03 12:02:10 Formatting of this n ote might be different from the original. Problem: Discharge Planning - Goal: Adequate for discharge Outcome: Progressing as expected Goal: Mood stable Outcome: Progressing as expected Problem: Breast-feeding - Ineffective Goal: Effective breast-feeding Outcome: Progressing as expected Christen Grove RN [facility] 2022-10-03 03:06:57 Formatting of this n ote might be different from the original. Problem: Discharge Planning - Goal: Adequate for discharge Outcome: Progressing as expected Goal: Mood stable Outcome: Progressing as expected Problem: Breast-feeding - Ineffective Goal: Effective breast-feeding Outcome: Progressing as expected [facility] 2022-10-02 21:14:20 Formatting of this n ote is different from the original. Name/ MRN / Age / Gender: Yanet Fotre, [id number] 22 year old female BMI: Estimated body mass index is 27.29 kg/m? as calculated from the following: Height as of this encounter: 1.651 m (5' 5"). Weight as of this encounter: 74.4 kg (164 lb). Allergies: Tramadol Last Vitals: BP Readings from Last 1 Encounters: 10/02/22 118/74 Pulse Readings from Last 1 Encounters: 10/02/22 98 SpO2 Readings from Last 1 Encounters: 10/02/22 99% Date of Surgery: 10/02/2022 Surgeon: * No surgeons listed * Procedure: CENTRAL NEURAXIAL BLOCK OR Location: [place] AN[facility] OUT OF OR - OR LOCATION Anesthesia Preop Eval (physical exam) Anesthesia Preop: Chart Review and Hdvs-[id number]-Hfqr PONV Risk Factors: female Anesthesia History Anesthesia History Negative (-) Hx of anesthetic complications Previous Anesthetics/Airways Cardiovascular Negative Cardiac ROS Comments: BP Readings from Last 3 Encounters: 10/02/22 : 118/74 10/02/22 : 111/76 10/01/22 : 115/70 Pulmonary Negative Pulmonary ROS Neuro/Musculoskeletal Negative Neuro/Musculosketal ROS (-) Spinal Cord injury (-) Positioning limitations GI/Hepatic Negative GI/Hepatic ROS Comments: No results found for: "ALB", "BILIT", "ALT", "AST", "ALKPHOS" Hematology Negative Hematology ROS Comments: WBC (10*3/?L) Date Value 10/02/2022 9.61 HGB (g/dL) Date Value 10/02/2022 9.8 (L) PLT (10*3/?L) Date Value 10/02/2022 204 No results found for: "PTINR" No results found for: "APTTMNNM" No results found for: "APTTPAT" (+) Patient accepts blood transfusion Renal Negative Renal ROS Comments: No results found for: "CREAT" No results found for: "K" No results found for: "NA" Skin Negative Skin ROS Endo/Other Negative Endo/Other ROS Comments: No results found for: "EFWGPCN7X" No results found for: "HGBA1C" Other SUPERVISOR DECORATING Comments: 22 year old female at 37w2d requesting central neuraxial anesthesia Yanet Forte is a 22 year old at 37w2d by d/u(18) who presents for decreased movement. ? IOL - Denies ctx, vb, reports some leakage of fluid, reports decreased movement - SVE: 3 / 50 % / -2 - Contractions (number / 10 minute): 1 - Plan: Proceed with IOL with pitocin titration ? MPDPS - No surgical hx - 164 lbs - Patient counseled and still desires BTL, see separate counseling note - Consents signed 07/16/22 ? Low lying placenta (resolved) -?Placenta posterior fundal and low lying @ 28w0d, resolved on all future scans - Most recent MFM US on 09/19 showing fundal placenta without previa - Hx of placenta previa in prior , resolved, ? FGR (resolved) - EFW 8%ile at 32w3d, normal dopplers - WYATT/dopplers and biweekly NSTs all reassuring -?EFW: 2298?g, 16%tile?AC 18%ile MFM Scan 09/19, resolved FGR ? Abnormal Pap - ASCUS pap on 04/30/22 - Needs colposcopy PP ? Antepartum course reviewed - 1 h?106, sero?negative, Rimmune, VZVimmune, HPV?not immune,?AB positive/IAT?negative, GBS?negative, Pap?ASCUS 04/30/22 - H/H, plt:?10.3?/ 32.0,?236?on 09/23/22 - PP control plan:?BTL -?[facility] ? Fetus - Presentation on admission: cephalic - Fundal placenta - EFW: 3067 g, 48%tile, WYATT 8.3 cm on BSUS by R1 - FHT reactive and reassuring - Normal anatomy scan Pediatric Pediatric N/A N/A Preoperative Medication Instructions Continue taking all prescribed medications except: FRANKLIN inhibitors, ARBs, diuretics, all oral diabetes medications Anticoagulant Therapy: Defer to surgeons Insulin: Take 1/2 dose the night prior to surgery. Hold on DOS. Phentermine: Alert [facility] anesthesiologist SGLT2 Inhibitors: "gliflozins" to be held for 3 days prior to elective surgeries MAC Cases: Continue taking FRANKLIN inhibitors and ARBs ASA Classification ASA: 2 Current Medications: No outpatient medications have been marked as taking for the 10/02/22 encounter (Hospital Encounter). Previous Surgeries: No past surgical history on file. Anesthesia Physical Exam General no apparent distress and alert and oriented x 3 Neuro/Psych neurological Nonfocal Dental no notable dental hx Abdominal GI exam normal (+) abdomen soft, benign and gravid Airway Mallampati score:III TM distance:> 5 cm Neck ROM: full Mouth opening:small, normal Extremity Normal extremity Pulmonary pulmonary exam normal and bilateral clear to auscultation Other Cardiovascular cardiovascular exam normalRhythm:Regular Rate: Normal Anesthesia Plan ASA Status: 2 Plan discussed during pre-op evaluation: General, Epidural, Spinal and CSE Anesthetic plan on DOS: Epidural Anesthesia plan discussed with: patient or contact representative Post-Operative Analgesia: routine analgesia & antiemetics Recovery Plan: PACU and LDR Additional comments: AN-ANESTHESIOLOGY [facility] 2022-10-02 19:47:41 Formatting of this n ote might be different from the original. Problem: Intrapartum process (including labor pain) Goal: Absence of or reduction of complications of labor Outcome: Resolved Goal: Able to cope with pain Outcome: Resolved Goal: Adequate to move to next level of care Outcome: Resolved Goal: Reduction in pain sensation Outcome: Resolved Problem: Falls, Risk of Goal: Absence of falls Outcome: Resolved Carolyn Snyder RN [facility] 2022-10-02 13:25:39 Formatting of this n ote might be different from the original. See careplan [facility] 2022-10-01 19:48:24 Formatting of this n ote might be different from the original. Pt 37 weeks with contractions approx 6-7 mins apart per patient. No fluids or discharge. Wt: 165.7 lbs. Report called to Frannie in L&D Nash Serrano RN [facility] 2022-09-26 08:35:21 Formatting of this n ote might be different from the original. Patient stated she was discharged from [facility] yesterday and was 3 cm dilated. Stated she went for contractions, denies any vaginal leakage, has positive movements. Patient stated she is still having contractions that are 10-15 mins apart. Patient started having brown discharge this morning but stated she was told it could be from speculum exam yesterday. Advised patient to keep appt for today at 9 and will be evaluated. Ashleigh Chawla LVN [facility] 2022-09-26 08:32:21 Formatting of this n ote might be different from the original. Pt was in hospital last night and woke up with bloody discharge today. STEPHANY Hardwick [facility] 2022-09-25 16:23:00 Formatting of this n ote might be different from the original. Regardinwks , contractions x 2hours ----- Message from Kaylee Forrester sent at 09/25/2022 4:23 PM CDT ----- Yanet Forte is a 22 year old female Chelsey Peoples RN [facility] 2022-09-25 16:23:00 Formatting of this n ote might be different from the original. Triage Assessment Last Clinic Visit: 09/23/22 PNV Primary Symptom: Contractions about every 15 - 20 minutes , regular Onset / Duration: last night were irregular, 2 hours regular Location / Description: lower abdomen and lower back Pain / Severity: 3/10 Associated Symptoms: Diarrhea today Fever / Method: None Hydration: 3 bottles of water (16 ounces), last void 4 minutes ago, no dysuria Treatment so far: Position change and bath, no change Effect on ADL's: No change in activity Gestational Weeks: 36 w 2 day Rupture Membranes: None Bleeding / Spotting / Pads per hour: None Movement: Last moved about 10 minutes ago Para / : G8 P 2 EDC: 10/21 Pre-existing condition / Immunocompromised: Anemia Reason for Disposition [1] Contractions > 10 minutes apart AND [2] persist > 24 hours AND [3] no improvement using CARE ADVICE Protocols used: - Labor - Uujzlpi-SSVGE-NO Patient calling concerned of regular contractions x 2 hours radiating to lower back. Positive movement, denies vaginal bleeding or leaking fluid. Advised to present to L&D for evaluation related to multiparity. Chelsey Peoples RN [facility] Triage Nurse [facility] 2022-09-25 13:01:18 Formatting of this n ote might be different from the original. Patient informed of results and new orders, verbalized understanding. Ashleigh Chawla LVN [facility] 2022-09-25 12:45:15 Formatting of this n ote might be different from the original. Please notify the patient she is anemic iron and vitamin c have been sent to her pharmacy on file. She should continue taking her pnv. LISE Canchola 09/25/2022 12:45 PM T [facility] 2022-09-09 09:45:00 Addended by: MAHNAZ BLAKE on: 09/09/2022 11:41 AM Modules accepted: Orders T [facility] 2022-09-01 16:07:29 Formatting of this n ote might be different from the original. Called pt, notified of usg results and poc to continue twice weekly NSTs. Pt verbalized understanding. Lorena Saenz RN 09/01/22 4:08 PM [facility] 2022-09-01 16:02:52 Formatting of this n ote might be different from the original. Please notify the patient her last usg is wnl, no changes in anatomy from her anatomy scan, estimated weight is 8%, so baby is still IUGR, she will continue getting her ultrasound and 2x weekly nst LISE Canchola 09/01/2022 4:04 PM [facility] 2022-09-01 10:29:23 Formatting of this n ote might be different from the original. Yanet Forte is a 22 year old female Pt states she was told to call clinic on Thursday-today for her results. Pt. Contact # [phone] (home) Jose Cedeñohany [facility] 2018-06-21 20:48:[address] [facility] [place] [place] ([facility]) OR A CAMPUS OF [facility] [place] [place] EMERGENCY PROVIDER REPORT REPORT#:[id number] REPORT STATUS: Signed DATE:06/21/18 TIME: 2047 PATIENT: YANET FORTE UNIT #: [id number] ROOM/BED: AGE: 18 SEX: F PCP PHYS: No Primary or Family Physician SERVICE AUTHOR: Lexis Stanley MD * ALL edits or amendments must be made on the electronic/computer document * HPI-Ear Pain/Problem/FB General Confirmed Patient Yes Patient Type New patient Initial Greet Date/Time 06/21/182032 Presentation Chief Complaint Ear problem L, Pain Hx Obtained From Patient Onset Occurred Days ago (4) Symptom Duration Waxes and wanes Progression since Onset Waxes and wanes Quality Painful Severity: Onset Mild Severity: Current Mild Associated Other Pt denies other symptoms Exacerbated by Nothing Relieved by Nothing Free Text HPI Notes Free Text HPI Notes 18F w/ no significant PMHX presents to the ED w/ c/o left ear pain, 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 Pt reports that she has experienced enlarged lymph nodes of the lateral aspect of her neck for 10 days. Pt does not report of any other sxs at this time. Pt reports that she is allergic to amoxicillin. Portions of this section were scribed by Marquis Perfecto on 06/21/18 at 2120 Review of Systems ROS Statements All systems rev neg except as marked. Focused Review of Systems Constitutional Denies: Chills, Fever, Lethargy. Ears/Nose/Throat Reports: Earache L. Denies: Ear drainage L. Additional Review of Systems Eyes Denies: Blurred bilat, Discharge bilat. Respiratory Denies: Shortness of breath, Wheezing. Cardiovascular Denies: Chest pain, Palpitations. GI Denies: Abdominal pain, Nausea, Vomiting. Female Denies: Dysuria, Flank pain. Musculoskeletal Denies: Back pain, Lumbar pain. Skin Denies: Abrasion, Abscess. Allergy/Immun Denies: Rhinorrhea, Sneezing. Portions of this section were scribed by Marquis Perfecto on 06/21/18 at 2104 Past Medical History - Adult Stated Complaint POSSIBLE EAR INFECTION Allergies Coded Allergies: penicillin G (HIVES 06/21/18) Home Medications Reported Medications No Known Home Medications Review of Nursing Notes Rev avail, and agree Pt reports no significant: Past medical history Smoking status for patients 13 years old or older: Current every day smoker Portions of this section were scribed by Marquis Perfecto on 06/21/18 at 2048 Physical Exam Vital Signs Vital Signs First Documented: Result Date Time Pulse Ox 99 [...] 2028 Review of Vital Signs Reviewed Focused PE General/Const General/Const Awake, Alert, No acute distress, Cooperative, Not toxic appearing MS Head Head Atraumatic, Normocephalic Ears/Nose/Throat Text/Dict Notes ear lob ewith erythema, edema and warmth MS Neck Neck Atraumatic, Supple, Full range of motion, No swelling, Non-tender Resp/Chest Respiratory/Chest Atraumatic, Breath sounds NL, Breath sounds = bilat, No respiratory distress Cardiovascular Cardiovascular Heart rate NL, Regular rhythm, Heart sounds NL Skin Skin Warm, Dry, Intact Neurologic Neurologic Oriented X3, Speech NL, No motor deficits, No sensory deficits, CN II - XII intact, Memory NL, Gait NL Additional PE Eyes Eyes Atraumatic, PERRL, EOMI Portions of this section were scribed by Marquis Perfecto on 06/21/18 at 0 Re-Evaluation MDM ED Course Medication(s) Ordered Medication(s) Ordered: Central Nervous System Agents Sig/Niles Start time Last Medication Dose Route Stop Time Status Admin Ibuprofen 800 MG X1ED STA 06/22 2115 DC PO 06/21 2116 Portions of this section were scribed by Marquis Perfecto on 06/21/18 at 0 Patient Discharge Departure Vital Signs/Condition Vital Signs First Documented: Result Date Time Pulse Ox 99 [...] entry have been reviewed. Condition Stable Clinical Impression Clinical Impression Primary Impression: Cellulitis of ear Disposition Decision Discharge )( Discharged to Home Yes )( Time 2103 )( Date 06/21/18 Discharge/Care Plan Counseled Regarding Diagnosis, Prescriptions, Need for follow-up, When to return to ED Prescriptions Doxycycline Prescriptions Reviewed Risks, Benefits, Alternative treatment Discharge Note I have spoken with the patient and/or caregivers. I have explained the patient's condition, diagnoses and treatment plan based on the information available to me at this time. I have answered the patient's and/or caregiver's questions and addressed any concerns. The patient and/or caregivers have as good an understanding of the patient's diagnosis, condition and treatment plan as can be expected at this point. The vital signs have been stable. The patient's condition is stable and appropriate for discharge from the emergency department. The patient will pursue further outpatient evaluation with the primary care physician or other designated or consulting physician as outlined in the discharge instructions. The patient and/or caregivers are agreeable to this plan of care and follow-up instructions have been explained [...] to 911. Supervising Physician Note Provider Scribed Statement I personally performed the services described in this documentation and reviewed the documentation that was dictated to the scribe(s) in my presence, and it accurately records my words and actions. Lexis Stanley, 06/22/18 Portions of this section were scribed by Marquis Perfecto on 06/21/18 at 2104 at 0101 [facility] #:[id number] END OF REPORT [facility]
[2024-04-21 10:30] LABS: Absolute Lymphocytes (CBC) 1.5 K/uL (0.7-4.9); Absolute Monocytes 0.3 K/uL (0.1-1.3); Absolute Neutrophil 1.8 K/uL (1.8-8.0); Basophils % 0.6 % (0-1.3); Eosinophils % 1.2 % (0-4.4); Hematocrit 40.1 % (36.0-45.0); Hemoglobin 13.6 g/dL (12.0-15.0); Lymphocytes % 41.7 % (15.3-44.8); MCH 27.8 pg (27.0-35.0); MCV 81.6 fL (80-100); MPV 7.2 fL (7.6-11.3); Neutrophils % 48.5 % (41.7-73.7); Nucleated Red Blood Cells % 0.1 % (0-0); Platelets 285 thou/uL (152-406); RBC Red Blood Cell Count 4.91 M/uL (3.86-4.86); Red Cell Distribution Width 13.3 % (12.1-15.2)
[2024-04-21 10:49] LABS: Anion Gap 6.5 mEq/L (5.0-15.0); Potassium 3.5 mEq/L (3.5-5.1); Thyroid Stimulating Hormone 0.677 uIU/mL (0.358-3.740)
--- NOTE | 2024-04-21 11:11 | ER ---
Nurse's Notes [facility] Name: Yanet Forte Age: 24 yrs Sex: Female : 2000 Arrival Date: 04/21/2024 Time: 09:51 Bed 8 Private MD: Diagnosis: Person with feared health complaint in whom no diagnosis is made;Presence of thyroid Presentation: 04/21 10:08 Chief complaint: Patient states: "I have a lump on the right side of my neck and I aa5 noticed it about a month ago". Coronavirus screen: At this time, the client does not indicate any symptoms associated with coronavirus-19. Ebola Screen: Patient denies travel to an Ebola-affected area in the 21 days before illness onset. Initial Sepsis Screen: Does the patient meet any 2 criteria? HR > 90 bpm. Does the patient have a suspected source of infection? No. Patient's initial sepsis screen is negative. Risk Assessment: Do you want to hurt yourself or someone else? Patient reports no desire to harm self or others. Onset of symptoms was April 2024. 10:08 Method Of Arrival: Ambulatory aa5 10:08 Acuity: JAYLON 3 aa5 Triage Assessment: 11:19 Pain: Denies pain. 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 - Infectious Disease History:: Denies. - Social history:: Smoking status: Reported history of juuling and/or vaping. Screenin:32 [facility] ED Fall Risk Assessment (Adult) History of falling in the last 3 months, cm10 including since admission No falls in past 3 months (0 pts) Confusion or Disorientation No (0 pts) Intoxicated or Sedated No (0 pts) Impaired Gait No (0 pts) Mobility Assist Device Used No (0 pt) Altered Elimination No (0 pt) Score/Fall Risk Level 0 - 2 = Low Risk Oriented to surroundings, Maintained a safe environment, Hourly rounding (assess needs \\T\\ fall precautionary measures) done. Abuse screen: Denies threats or abuse. Denies injuries from another. Nutritional screening: No deficits noted. Tuberculosis screening: No symptoms or risk factors identified. Assessment: 10:33 General: Appears in no apparent distress. uncomfortable, Behavior is calm, cooperative. cm10 Neuro: No deficits noted. Level of Consciousness is awake, alert, obeys commands, Oriented to person, place, time, situation, Appropriate for age. Respiratory: No deficits noted. Airway is patent Respiratory effort is even, unlabored, Respiratory pattern is regular, symmetrical. EENT: Swelling noted to neck. Musculoskeletal: No deficits noted. Range of motion: intact in all extremities. Vital Signs: 10:08 BP 116 / 80; Pulse 94; Resp 16 S; Pulse Ox 100% on R/A; Weight 58.97 kg (R); Height 5 aa5 ft. 4 in. (R); 11:12 BP 104 / 77; Pulse 71; Resp 15; Pulse Ox 99% ; cm10 10:08 Body Mass Index 22.31 (58.97 kg, 162.56 cm) aa5 ED Course: 09:55 Patient arrived in ED. cj3 09:55 Larry Burroughs MD is Attending Physician. ec2 10:06 Joaquim Patiño, NEHEMIAH is Primary Nurse. bp 10:06 Arm band placed on Patient placed in an exam room, on a stretcher. aa5 10:09 Triage completed. aa5 10:15 Missed attempt(s): 20 gauge in right antecubital area. Bleeding controlled, band aid cm10 applied, catheter tip intact. 10:15 Initial lab(s) drawn, by me, sent to lab. cm10 10:32 Patient has correct armband on for positive identification. Bed in low position. Call cm10 light in reach. Side rails up X2. Provided Education on: ER process and procedures.. Pulse ox on. NIBP on. 11:19 No provider procedures requiring assistance completed. Patient did not have IV access cm10 during this emergency room visit. Administered Medications: No medications were administered Medication: 10:33 VIS not applicable for this client. cm10 Outcome: 11:10 Discharge ordered by . ec2 11:19 Discharged to home ambulatory, cm10 11:19 Condition: good 11:19 Discharge instructions given to patient, Instructed on discharge instructions, follow up and referral plans. Demonstrated understanding of instructions, follow-up care, 11:19 Patient left the ED. cm10 Signatures: Lindsay Ozuna, RN RN aa5 Joaquim Patiño, RN RN bp Rebecca Rodriguez, RN RN cm10 Larry Burroughs MD MD ec2 Mae Vasquez 3
--- NOTE | 2024-04-21 11:11 | EDPHYS ---
Physician Documentation [facility] Name: Yanet Forte Age: 24 yrs Sex: Female : 2000 Arrival Date: 04/21/2024 Time: 09:51 Bed 8 Private MD: ED Physician Larry Burroughs HPI: 04/21 10:10 This 24 yrs old Female presents to ER via Ambulatory with complaints of Lump ec2 on Neck. 10:10 Patient arrives today for evaluation due to concern for possible lump on neck. Patient ec2 reports that she had noticed a prominence in her anterior neck, no specific pain, no difficulty swallowing, no change in size. Patient reports no fevers or chills, no sore throat. Patient reports her primary concern is that her son was recently diagnosed with leukemia. No expected weight loss, no hair loss, no B symptoms. 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 - Infectious Disease History:: Denies. - Social history:: Smoking status: Reported history of juuling and/or vaping. ROS: 10:11 Constitutional: as per hpi ec2 Exam: 10:11 Constitutional: GEN: NAD Head: atraumatic Eyes: EOMI Ears: External ears are normal. ec2 Neck: No anterior neck swelling appreciated, thyroid noted, nontender, no overlying erythema, no fluctuance appreciated. CV: regular rate LUNGS: no respiratory distress ABD: non-distended SKIN: no evidence of rashes MSK: no evidence of trauma Vital Signs: 10:08 BP 116 / 80; Pulse 94; Resp 16 S; Pulse Ox 100% on R/A; Weight 58.97 kg (R); Height 5 aa5 ft. 4 in. (R); 11:12 BP 104 / 77; Pulse 71; Resp 15; Pulse Ox 99% ; cm10 10:08 Body Mass Index 22.31 (58.97 kg, 162.56 cm) aa5 MDM: 10:04 Medical Screening Exam initiated ec2 10:12 Data reviewed: vital signs, nurses notes. ED course: Patient arrives today for ec2 evaluation of possible swelling on the neck. Examination is revealing for nontender thyroid otherwise reassuring neck examination. Will obtain lab work, thyroid studies. Will evaluate for thyroiditis, no evidence of abscess or fluctuance, no significant appreciable masses. Additionally considered cancer, patient with no appreciable concerning features that require emergent workup at this time. 10:14 ED course: Patient reports hx of BL salpingectomy, will forgo testing at this ec2 time. 11:10 ED course: Thyroid studies reassuring, CBC shows leukopenia which is persistent from ec2 last Visit. Will discharge to have the patient follow-up with PCP.. 04/21 10:10 Order name: CBC with Diff; Complete Time: 10:42 ec2 04/21 10:10 Order name: BMP; Complete Time: 11:09 ec2 04/21 10:10 Order name: TSH; Complete Time: 11:09 ec2 04/21 10:10 Order name: T4 Free; Complete Time: 11:09 ec2 Administered Medications: No medications were administered Disposition Summary: 04/21/24 11:10 Discharge Ordered Notes: Location: Home ec2 Condition: Stable ec2 Diagnosis - Person with feared health complaint in whom no diagnosis is made ec2 - Presence of thyroid ec2 Followup: ec2 - With: Private Physician - When: - Reason: Re-evaluation by your physician Discharge Instructions: - Discharge Summary Sheet ec2 - Hyperthyroidism ec2 - Hypothyroidism ec2 Forms: - Medication Reconciliation Form ec2 - Antibiotic Education ec2 - Prescription Opioid Use ec2 - Patient Portal Instructions ec2 - Leadership Thank You Letter ec2 Signatures: Dispatcher [employer] Lindsay Cordero RN RN aa5 Larry Burroughs MD MD ec2 Corrections: (The following items were deleted from the chart) 10:12 10:10 Patient arrives today for evaluation due to concern for possible lump on neck. ec2 Patient reports that she had noticed a prominence in her anterior neck, no specific pain, no difficulty swallowing, no change in size. Patient reports no fevers or chills, no sore throat. Patient reports her primary concern is that her son was recently diagnosed with leukemia.. ec2
[2024-04-21 11:25] VITALS: BP 104/77; O2SAT 99
== END 2024-04-21 11:19 | disposition home or self-care (01) ==
LOC: ER 09:51
DX: Z71.1 Person with feared health complaint in whom no diagnosis is made (principal)
CPT/HCPCS: 36415; 80048; 84439; 84443; 85025; 99283